=== PATIENT | female | born 1935 | race Caucasian/White ===

== ENCOUNTER 2020-06-26 20:46 | Emergency (ER) | payer MEDICARE, SELFPAY ==
[2020-06-26 21:05] VITALS: BP 155/84; PULSE 70; RESP 14; TEMP 36.4; O2SAT 99
--- NOTE | 2020-06-26 21:28 | ED.LOWEXIN ---
HPI - Extremity Injury (Lower) General Chief Complaint: Extremity Problem,Nontraumatic Stated Complaint: swelling/ bleeding from leg Time Seen by Provider: 06/26/20 21:28 Source: patient Mode of arrival: ambulatory Limitations: no limitations History of Present Illness HPI Narrative: 84-year-old woman who lives with her son brought in today by family after finding blood on her floor, in her bathtub and on her right lower leg and feet. She had a wound from which blood was coming on her right ayers. She states that she scratched a sore there on it started bleeding. She attempted to treat it by putting it in a bucket of water. Family member said that she felt lightheaded afterwards. They deny hematuria, in her stools, or other injury. She denies dizziness or weakness at present. MD complaint: leg injury Onset (ago): hour(s) (1-2) Type of Injury: unknown Place: home Severity: moderate Relieving factors: nothing Exacerbating factors: nothing Other symptoms: none Related Data Home Medications Medication Instructions Recorded Confirmed metformin 1,000 mg tablet 1,000 mg PO BID 01/07/20 06/26/20 Allergies Allergy/AdvReac Type Severity Reaction Status Date / Time No Known Allergies Allergy Verified 02/19/20 06:52 Review of Systems Constitutional: Constitutional: Denies chills and Denies fever(s) Eyes: Eyes: Denies change in vision and Denies photophobia ENT: Denies dysphagia, Denies nasal congestion and Denies sore throat Cardiovascular: Cardiovascular: Denies chest pain and Denies radiating jaw, neck or arm pain Respiratory: Respiratory: Denies cough, Denies dyspnea and Denies wheezing Gastrointestinal: Gastrointestinal: Denies abdominal pain, Denies nausea and Denies vomiting Genitourinary: Genitourinary: Denies hematuria, Denies nocturia and Denies dysuria Musculoskeletal: Musculoskeletal: Denies back pain, Denies arthralgias, Denies joint swelling and Denies muscle cramps Integumentary/Breasts: Skin/Breast: Denies pruritus, Denies rash and Denies skin ulcer Neurologic: Reports as per HPI, Denies vertigo, Reports dizziness and Denies syncope Psychiatric: Psychiatric: Denies anxiety and Denies depression Hematologic/Lymphatic: Hematologic/Lymphatic: Reports easy bleeding and Reports easy bruising Allergic/Immunologic: Allergic/Immunologic: Denies lip swelling and Denies wheezing [facility] Past Medical History Medical History Dementia Diabetes mellitus Hearing decreased HTN (hypertension) Osteoporosis Surgical History Surgical History History of cholecystectomy History of hernia repair Social History Social History Smoking status: Former smoker Tobacco type: cigarettes Additional smoking assessment comments: Quit over 30 years ago Additional living arrangements comments: . 8 Children. Exam Const: General: no acute distress and alert Resp: Effort & Inspection: normal respiratory effort and not labored Auscultation: clear to auscultation bilaterally, no rales, no rhonchi and no wheezes Cardio: Rate: regular rate Rhythm: regular rhythm Heart sounds: no murmurs GI: GI Palp: Yes Soft to palpation, No Tenderness to palpation present (GI), No Guarding due to palpation present (GI), No Rigid due to palpation and No Palpable mass present Other: no bleeding : External Female Exam: normal external appearance ( No bleeding) Skin: General skin exam: normal color, no jaundice and no pallor Rashes: no rashes Other: Small wound on the right anterior ayers without bleeding, swelling, erythema. Neuro: General: moves all extremities, no focal motor deficits and CN's II-XI intact bilaterally Speech: normal speech Gait exam (Neuro): Normal gait present Extrem: General: normal to inspection and no clubbing, cyanosis o
[2020-06-26 21:56] LABS: Basophils Absolute Auto 0.04 K/mm3 (0.00-0.10); Basophils Percent Auto 0.5 % (0.0-1.0); Eosinophils Absolute Auto 0.16 K/mm3 (0.02-0.50); Eosinophils Percent Auto 1.9 % (1.0-6.0); Hematocrit 31.4 % (35.0-42.0); Hemoglobin 9.2 g/dL (11.7-13.8); Immature Granulocyte Absolute 0.03 K/mm3 (0.00-0.00); Immature Granulocyte Percent A 0.4 % (0.0-0.0); Lymphocytes Absolute Auto 0.73 K/mm3 (1.10-4.50); Lymphocytes Percent Auto 8.6 % (18.0-42.0); Mean Corpuscular HGB Conc 29.3 g/dL (32.0-36.0); Mean Corpuscular Hemoglobin 24.9 pg (27.0-31.0); Mean Corpuscular Volume 84.9 fL (78.0-102.0); Mean Platelet Volume 9.9 fl (9.2-11.8); Monocytes Absolute Auto 0.55 K/mm3 (0.10-0.90); Monocytes Percent Auto 6.5 % (2.0-11.0); Neutrophils Absolute Auto 6.9 K/mm3 (1.7-7.2); Neutrophils Percent Auto 82.1 % (50.0-70.0); Platelet Count Result 351 K/mm3 (150-420); Red Cell Distribution Width 13.5 % (11.6-14.4); White Blood Count 8.5 K/mm3 (4.8-10.8)
[2020-06-26 21:57] VITALS: BP 148/79; PULSE 76
[2020-06-26 22:00] VITALS: BP 133/62; PULSE 73
[2020-06-26 22:10] LABS: Partial Thromboplastin Time 25.7 SEC (22.3-31.6); Prothrombin Time 10.4 Seconds (9.64-11.0)
[2020-06-26 22:11] LABS: Alanine Aminotransferase 12 U/L (14-59); Albumin Level 3.1 g/dL (3.4-5.0); Alkaline Phosphatase 64 U/L (46-116); Anion Gap 6 mmol/L (8-16); Aspartate Amino Transferase 14 U/L (15-37); Bilirubin,Total 0.3 mg/dL (0.00-1.00); Blood Urea Nitrogen 10 mg/dL (7-18); Calcium 9.1 mg/dL (8.5-10.1); Carbon Dioxide 31 mmol/L (21-32); Chloride 103 mmol/L (98-108); Estimated CRCL calculation 36 ml/min; Estimated Glomerular Filt Rate 58; Glucose 180 mg/dL (70-99); Osmolality Calculated 294 mOsm/kg (285-295); Potassium 4.2 mmol/L (3.5-5.1); Sodium 140 mmol/L (136-145); Total Protein 6.6 g/dL (6.4-8.2)
[2020-06-26 22:56] VITALS: PULSE 70; RESP 15; O2SAT 100
== END 2020-06-26 22:46 | disposition home or self-care (01) ==
PROVIDERS: Emergency Provider Emergency Medicine; PCP Family Medicine
DX: S81.811A Laceration without foreign body, right lower leg, initial encounter (principal); D64.9 Anemia, unspecified; E11.9 Type 2 diabetes mellitus without complications; I10 Essential (primary) hypertension; M81.0 Age-related osteoporosis without current pathological fracture; Z87.891 Personal history of nicotine dependence
CPT/HCPCS: 36415; 80053; 85025; 85610; 85730; 99282; 99283

== ENCOUNTER 2020-06-30 12:54 | Outpatient (CLI) | payer MEDICARE, SELFPAY ==
[2020-06-30 13:07] LABS: Hematocrit 30.3 % (35.0-42.0); Hemoglobin 8.9 g/dL (11.7-13.8); Mean Corpuscular HGB Conc 29.4 g/dL (32.0-36.0); Mean Corpuscular Volume 85.1 fL (78.0-102.0); Mean Platelet Volume 9.3 fl (9.2-11.8); Platelet Count Result 334 K/mm3 (150-420); Red Blood Count 3.56 M/mm3 (4.20-5.40); Red Cell Distribution Width 13.5 % (11.6-14.4); White Blood Count 6.3 K/mm3 (4.8-10.8)
[2020-06-30 14:05] LABS: Ferritin 9 ng/mL (8-252); Iron 19 ug/dL (50-170); Percent Iron Saturation 6 % (12-57); Vitamin B12 190 pg/mL (193-986)
[2020-06-30 14:20] LABS: Folic Acid > 20.0 ng/mL (8.6->20)
== END 2020-06-30 12:55 | disposition home or self-care (01) ==
LOC: CHSLAB 12:57
PROVIDERS: PCP Family Medicine; Visit Provider Family Medicine
DX: F03.90 Unspecified dementia, unspecified severity, without behavioral disturbance, psychotic disturbance, mood disturbance, and anxiety (principal); D46.9 Myelodysplastic syndrome, unspecified; E11.9 Type 2 diabetes mellitus without complications
CPT/HCPCS: 36415; 82607; 82728; 82746; 83540; 83550; 85027

== ENCOUNTER 2020-07-08 09:44 | Outpatient (CLI) | payer MEDICARE, SELFPAY ==
[2020-07-08] MEDS: IRON SUCROSE COMPLEX 500 MG in SODIUM CHLORIDE 0.9% IV 250 ML 62.5 MG IV PUSH (10:40)
== END 2020-07-08 09:45 | disposition home or self-care (01) ==
LOC: CHSTREATRM 09:46
PROVIDERS: PCP Family Medicine; Visit Provider Family Medicine
DX: D50.9 Iron deficiency anemia, unspecified (principal)
CPT/HCPCS: 96365; 96366; J1756; J7050

== ENCOUNTER 2020-07-23 08:24 | Outpatient (CLI) | payer MEDICARE, SELFPAY ==
[2020-07-23 08:54] LABS: Hemoglobin A1C 5.8 % (<5.7)
[2020-07-23] MEDS: IRON SUCROSE COMPLEX 500 MG in SODIUM CHLORIDE 0.9% IV 250 ML 62.5 MG IVPB (09:24)
== END 2020-07-23 08:25 | disposition home or self-care (01) ==
LOC: CHSLAB 08:31 → CHSTREATRM 09:03
PROVIDERS: PCP Family Medicine; Visit Provider Family Medicine
DX: D50.9 Iron deficiency anemia, unspecified (principal); E11.9 Type 2 diabetes mellitus without complications
CPT/HCPCS: 36415; 83036; 96365; 96366; J1756; J7050

== ENCOUNTER 2021-02-15 14:28 | Emergency (ER) | payer MEDICARE, SELFPAY ==
--- NOTE | ~2021-02-15 | XR_ITS ---
EXAMINATION: XR abdomen obstructive series DATE: 02/15/2021 15:30 INDICATION: Low abdominal pain. Nausea and vomiting. TECHNIQUE: Upright and supine views of the abdomen on 3 radiographs were obtained. COMPARISON: CT abdomen and pelvis 09/24/2007 FINDINGS: There are no dilated loops of bowel. There is a paucity of stool in the colon. No free intr aperitoneal gas. Surgical clips in the right upper quadrant are likely from cholecystectomy. IMPRESSION: 1. Normal bowel gas pattern. Reviewed, dictated and finalized at location B.
[2021-02-15 14:44] VITALS: BP 175/55; PULSE 66; RESP 14; TEMP 35.9; O2SAT 96
--- NOTE | 2021-02-15 15:10 | ED.NAVMDI ---
HPI - Nausea/Vomiting/Diarrhea General Source: patient and family Mode of arrival: ambulatory Limitations: dementia History of Present Illness HPI Narrative: Patient is brought in by daughter. She had one brief episode of nausea and had one small emesis at home. She is brought in because of this. She reportedly had been doing well prior to this. She denies other nausea and vomiting. She denies any abdominal pain. She denies any symptoms of a urinary tract infection. She has dementia, and her short term memory is not good. History must be viewed remembering this. Daughter brought her in worried she was ill, without attempting any home remedies. MD elicited complaint: nausea, vomiting (emesis x1 just prior to presentation) and diarrhea (loose stools earlier today a couple of hours ago) Onset (ago): minute(s) Description of vomiting: food contents Description of diarrhea: watery Associated nausea: Yes Associated abdominal pain: No Location of pain: none Severity: mild Exacerbating factors: other (denies exacerbating factors) Associated symptoms: denies other symptoms Related Data Allergies Allergy/AdvReac Type Severity Reaction Status Date / Time No Known Allergies Allergy Verified 02/15/21 14:49 Review of Systems Constitutional: Constitutional: Reports no additional constitutional complaints Eyes: Eyes: Reports no additional eye complaints ENT: Reports system reviewed and no additional complaints, except as documented Cardiovascular: Cardiovascular: Reports no additional cardiovascular complaints Respiratory: Respiratory: Reports no additional respiratory complaints Gastrointestinal: Gastrointestinal: Reports no additional gastrointestinal complaints Genitourinary: Genitourinary: Reports no additional female genitourinary complaints Musculoskeletal: Musculoskeletal: Reports no additional musculoskeletal complaints Integumentary/Breasts: Skin/Breast: Reports system reviewed and no additional complaints, except as docu Neurologic: Reports system reviewed and no additional complaints, except as documented Psychiatric: Psychiatric: Reports no additional psychiatric complaints Endocrine: Endocrine: Reports no additional endocrine complaints Hematologic/Lymphatic: Hematologic/Lymphatic: Reports no additional hematologic/lymphatic complaints [facility] Past Medical History Medical History Dementia Diabetes mellitus Hearing decreased HTN (hypertension) Microcytic anemia Onychomycosis Osteoporosis Surgical History Surgical History History of cholecystectomy History of hernia repair Family History Family History Father No problems noted. Mother No problems noted. Social History Social History Smoking status: Former smoker Tobacco type: cigarettes Additional smoking assessment comments: Quit over 30 years ago Additional living arrangements comments: . 8 Children. Exam Const: General: no acute distress HENMT: Head: normal to inspection Ears: external ears normal and TM's normal bilaterally Mouth: Yes Normal oral and palatal mucosa present Other: She appears to have a cyst on her posterior pharynx on the right, just smaller than a dime Eyes: Cornea: corneas normal Neck: Neck: normal visual inspection Chest: Chest palpation & inspection: normal inspection of the chest Resp: Effort & Inspection: normal respiratory effort Cardio: Rate: regular rate Rhythm: regular rhythm GI: GI Palp: Yes Soft to palpation (nontender) Back/Spine/Pelvis: Back: no CVA tenderness Skin: General skin exam: normal color Rashes: no rashes Neuro: General: patient oriented x3 and moves all extremities Extrem: General: normal to inspection Psych: Appearance: ronald
[2021-02-15 15:41] LABS: Basophils Absolute Auto 0.04 K/mm3 (0.00-0.10); Basophils Percent Auto 0.3 % (0.0-1.0); Eosinophils Absolute Auto 0.03 K/mm3 (0.02-0.50); Eosinophils Percent Auto 0.2 % (1.0-6.0); Hematocrit 46.5 % (35.0-42.0); Hemoglobin 13.9 g/dL (11.7-13.8); Immature Granulocyte Absolute 0.06 K/mm3 (0.00-0.00); Immature Granulocyte Percent A 0.5 % (0.0-0.0); Lymphocytes Absolute Auto 0.69 K/mm3 (1.10-4.50); Lymphocytes Percent Auto 5.6 % (18.0-42.0); Mean Corpuscular HGB Conc 29.9 g/dL (32.0-36.0); Mean Corpuscular Hemoglobin 26.8 pg (27.0-31.0); Mean Corpuscular Volume 89.8 fL (78.0-102.0); Mean Platelet Volume 10.1 fl (9.2-11.8); Monocytes Absolute Auto 0.46 K/mm3 (0.10-0.90); Monocytes Percent Auto 3.7 % (2.0-11.0); Neutrophils Percent Auto 89.7 % (50.0-70.0); Platelet Count Result 371 K/mm3 (150-420); Red Blood Count 5.18 M/mm3 (4.20-5.40); Red Cell Distribution Width 13.1 % (11.6-14.4); White Blood Count 12.3 K/mm3 (4.8-10.8)
[2021-02-15 15:46] LABS: Add Urine Microscopic? YES; Appearance Urine Clear (Clear); Bilirubin Urine Negative (Negative); Blood Urine Negative (Negative); Color Urine Yellow (Yellow); Glucose Urine UA Negative (Negative); Ketones Urine Trace (Negative); Leukocyte Esterase Ur Negative (Negative); Nitrate Urine Negative (Negative); Protein Urine 1+ (Negative); Specific Grav Ur 1.025 (1.010-1.020); Urobilinogen Urine 0.2 mg/dL (0.2-1.0); pH Urine 5.5 (5.0-8.0)
[2021-02-15 15:58] LABS: Alanine Aminotransferase 13 U/L (14-59); Albumin Level 3.4 g/dL (3.4-5.0); Alkaline Phosphatase 107 U/L (46-116); Anion Gap 8 mmol/L (8-16); Aspartate Amino Transferase 17 U/L (15-37); Bacteria Urine 3+ /hpf; Bilirubin,Total 0.6 mg/dL (0.00-1.00); Blood Urea Nitrogen 13 mg/dL (7-18); Calcium 10.3 mg/dL (8.5-10.1); Carbon Dioxide 31 mmol/L (21-32); Chloride 101 mmol/L (98-108); Estimated Glomerular Filt Rate > 60; Glucose 180 mg/dL (70-99); Lipase 96 U/L (73-393); Mucus Urine Few /lpf; Osmolality Calculated 295 mOsm/kg (285-295); Potassium 3.9 mmol/L (3.5-5.1); RBC Urine 0-2 /hpf (0-2); Sodium 140 mmol/L (136-145); Squamous Epithelial Cell Urine Few /hpf (Few); Total Protein 7.3 g/dL (6.4-8.2); WBC Urine 0-3 /hpf (0-3)
[2021-02-15 16:36] VITALS: BP 140/70; PULSE 80; RESP 18; TEMP 36.6; O2SAT 95
== END 2021-02-15 16:37 | disposition home or self-care (01) ==
PROVIDERS: Emergency Provider Emergency Medicine; PCP Family Medicine
DX: R11.2 Nausea with vomiting, unspecified (principal); E11.9 Type 2 diabetes mellitus without complications; I10 Essential (primary) hypertension; M81.0 Age-related osteoporosis without current pathological fracture; Z87.891 Personal history of nicotine dependence
CPT/HCPCS: 36415; 74019; 80053; 81001; 83690; 85025; 99282; 99283

== ENCOUNTER 2021-08-24 13:20 | Outpatient (CLI) | payer MEDICARE, SELFPAY ==
--- NOTE | ~2021-08-24 | XR_ITS ---
[[id number] ] INDICATION: Rib pain after fall TECHNIQUE: Frontal projection of the upper left ribs, frontal projection of the lower left ribs, obli que projection of all the left ribs, frontal inspiratory chest x-ray for interpretation. FINDINGS: There are no acute displaced rib fractures identified. There are healed left sixth and sev enth rib fractures. There are no soft tissue abnormality seen. The lungs are clear. There are scatt ered calcified granulomas of the lung parenchyma. IMPRESSION: 1:No acute displaced rib fractures. Reviewed, dictated and finalized at location A.
--- NOTE | ~2021-08-24 | XR_ITS ---
EXAMINATION: XR hip LT 2V w AP pelvis EXAM DATE: 08/24/2021 14:18 INDICATION: Fall, left hip and flank pain. TECHNIQUE: Left hip frontal, 'frog leg' projections for interpretation. Frontal projection pelvis. There is no prior study for comparison. FINDINGS: There is mild to moderate symmetric bilateral hip primary osteoarthritis. There is cortical contour abnormality identified along the superior surface of the left femoral neck on both the pelvi c x-ray and the frontal left hip projection, possible acute closed posttraumatic nondisplaced incompl ete femoral neck fracture. MRI without contrast would be most sensitive for evaluating this. This fin ding has been indicated, marked on the examination for review, clinical correlation. There is no pérez bcutaneous gas. The soft tissue is unremarkable. There are no radiopaque foreign bodies. IMPRESSION: 1. Possible nondisplaced left femoral neck fracture; consider noncontrast MR left hip. 2. Mild to moderate symmetric bilateral hip osteoarthritis. I discussed this case, recommendation with Ankur Samaniego DO at 08/24/2021 16:06 CDT. Reviewed, dictated and finalized at location B. IMPRESSION: 1. Possible nondisplaced left femoral neck fracture; consider noncontrast MR le ft hip. 2. Mild to moderate symmetric bilateral hip osteoarthritis. I discussed this case, recommendation with Ankur Samaniego DO at 08/24/2021 16:06 CDT.
== END 2021-08-24 13:21 | disposition home or self-care (01) ==
LOC: CHSIMG 13:26
PROVIDERS: PCP Family Medicine; Visit Provider Family Medicine
DX: M25.559 Pain in unspecified hip (principal)
CPT/HCPCS: 71101; 73502

== ENCOUNTER 2021-08-28 09:07 | Outpatient (CLI) | payer MEDICARE, SELFPAY ==
--- NOTE | ~2021-08-28 | MR_ITS ---
EXAMINATION: MR hip LT wo con DATE: 08/28/2021 10:57 INDICATION: Left hip pain TECHNIQUE: Magnetic resonance imaging (MRI) of the left hip was performed without intravenous contra st. Sequences included full-field axial PD-weighted FS FSE and T1-weighted FSE, coronal of the pelvis with PD-weighted FS FSE. At this point the exam was terminated at the request the patient prior to o btaining the small taqiu-le-lxnf images of the left hip. COMPARISON: None FINDINGS: Incomplete study with absence of small fjgwy-br-abzk imaging of the left hip which significantly limi ts evaluation of the labrum and cartilage. This does not however limit assessment for fracture or oth er abnormal marrow process. Bones: Alignment is normal. There is a T2 hyperintense lesion at the left posterior aspect of the L2 vertebr al body which corresponds to a hemangioma with typical thickened vertical trabecula on CT dated 09/24. Otherwise normal marrow signal. No fracture, avascular necrosis or other pathologic marrow rep lacing process. Mild osteoarthritis with no degenerative subarticular changes suggested both hips.. Fluid: Symmetric physiologic amount of fluid within both hip joints. Soft tissues: No asymmetric muscular atrophy or abnormal muscular signal in the pelvis and visualized proximal thig hs. The iliopsoas, gluteal and proximal hamstring tendons are normal. Limited evaluation of visceral organs of the pelvis is unremarkable. No pathologically enlarged pelvic/inguinal lymphadenopathy. IMPRESSION: 1. Limited study which was terminated at patient's request prior to obtaining the small jvawa-ac-avvq images of the left hip. Large gkmpr-jj-wxgd images demonstrate mild bilateral hip osteoarthritis wit h no evident acute osseous abnormality. 2. Reviewed, dictated and finalized at location A. IMPRESSION: 1. Limited study which was terminated at patient's request prior to obtaining t he small fnpnm-om-nopb images of the left hip. Large tytrm-dm-jevt images demon strate mild bilateral hip osteoarthritis with no evident acute osseous abnormal ity. 2.
== END 2021-08-28 09:08 | disposition home or self-care (01) ==
LOC: CHSIMG 09:09
PROVIDERS: PCP Family Medicine; Visit Provider Family Medicine
DX: M25.552 Pain in left hip (principal); R93.89 Abnormal findings on diagnostic imaging of other specified body structures
CPT/HCPCS: 73721

== ENCOUNTER 2022-03-06 00:07 | Observation (INO) | payer MEDICARE, SELFPAY ==
[2022-03-06] VITALS (11 sets, daily range): BP systolic 163–245; BP diastolic 69–92; PULSE 62–78; RESP 16–18; TEMP 36–36.5; O2SAT 95–100; BMI 27.3
--- NOTE | ~2022-03-06 | XR_ITS ---
EXAMINATION: XR wrist LT min 3V DATE: 03/06/2022 00:34 INDICATION: Left wrist pain after fall TECHNIQUE: Posteroanterior, ulnar deviation, oblique, and lateral views of the left wrist were obtain ed. COMPARISON: None available FINDINGS: There is an acute, traumatic, closed, transverse fracture of the distal radius. There is a subtle lucency in the distal articular surface of the radius. There are 10 degrees of dorsal angulati on at the fracture site. No additional fracture is identified. There is soft tissue swelling of the w rist. IMPRESSION: 1. Transverse fracture of the distal radius dorsal angulation and possible extension to the distal ar ticular surface. Reviewed, dictated and finalized at location A. IMPRESSION: 1. Transverse fracture of the distal radius dorsal angulation and possible exte nsion to the distal articular surface.
--- NOTE | 2022-03-06 00:19 | ED.LOWEXIN ---
HPI - Extremity Injury (Lower) General Chief Complaint: Extremity Injury, Upper Stated Complaint: Broken Left Wrist Source: patient Mode of arrival: ambulatory Limitations: no limitations History of Present Illness HPI Narrative: patient with history of high blood pressure dementia presents after she had a fall earlier today and having pain and decreased range of motion of her left wrist, has a good brisk radial pulse on the left with no numbness or tingling, no other injuries. blood pressure elevated and patient did receive vasotec 3.75 mg IV, Lopressor 5mg IV and 2mg of morphine patient is comfortable no neurological deficits labs and x-ray reviewed with family and will admit for observation to control blood pressure. complaint: other ( left wrist injury) Related Data Home Medications Medication Instructions Recorded Confirmed metformin 1,000 mg PO BID 03/06/22 03/06/22 Allergies Allergy/AdvReac Type Severity Reaction Status Date / Time No Known Allergies Allergy Verified 03/06/22 00:25 Review of Systems Review of Systems: All systems reviewed & are unremarkable except as noted in HPI and below PMFSH Past Medical History Medical History Dementia Diabetes mellitus Hearing decreased HTN (hypertension) Microcytic anemia Onychomycosis Osteoporosis Rib pain on left side Vitamin B12 deficiency Surgical History Surgical History History of cholecystectomy History of hernia repair Family History Family History Father No problems noted. Mother No problems noted. Social History Social History Smoking status: Former smoker Tobacco type: cigarettes Additional smoking assessment comments: Quit over 30 years ago Additional living arrangements comments: . 8 Children. Exam Const: General: no acute distress Orientation/consciousness: patient oriented x3 HENMT: Head: normal to inspection Eyes: Conjunctivae: conjunctivae normal Pupils: Equal, round and reactive pupils present Neck: Neck: normal visual inspection and no lymphadenopathy Chest: Chest palpation & inspection: normal inspection of the chest Resp: Effort & Inspection: normal respiratory effort Cardio: Rate: regular rate Rhythm: regular rhythm : General: Yes no CVA tenderness Urinary Catheter: Urinary Catheter: patent and draining Back/Spine/Pelvis: Back: no CVA tenderness Skin: General skin exam: normal color Rashes: no rashes Neuro: General: patient oriented x3, moves all extremities, no meningeal signs and no focal motor deficits Extrem: General: edema Other: Left wrist swollen and tender with palpation and movement. Psych: Mental Status: mental status grossly normal Affect: normal affect Course Course Emergency Course: Patient currently having increased blood pressure and will give a dose of IV basal tech since her heart rate is on the lower side with a heart rate of 72, patient is comfortable in declined pain medication and x-ray obtained of her left wrist was reviewed with patient and family. Vital Signs Vital signs: Vital Signs Pulse Rate 71 03/06/22 00:43 Respiratory Rate 18 03/06/22 00:43 Blood Pressure 240/85 H 03/06/22 00:43 Pulse Oximetry 100 03/06/22 00:43 Pulse Rate 74 03/06/22 01:11 Respiratory Rate 18 03/06/22 00:43 Blood Pressure 240/85 H 03/06/22 00:43 Pulse Oximetry 100 03/06/22 00:43 MDM - Extremity Injury (Lower) Lab Data Result diagrams: 03/06/22 01:00 03/06/22 01:00 Labs: Lab Results 03/06/22 03/06/22 Range/Units 01:00 01:00 WBC 10.4 (4.8-10.8) K/mm3 RBC 4.76 (4.20-5.40) M/mm3 Hgb 13.2 (11.7-13.8) g/dL Hct 41.6 (35.0-42.0) % MCV 87
--- NOTE | 2022-03-06 00:24 | ECG_ITS ---
Measurements Intervals [place] Rate: 71 P: 12 MT: 152 QRS: -51 QRSD: 127 T: 36 QT: 423 QTc: 460 Interpretive Statements SINUS RHYTHM RIGHT BUNDLE BRANCH BLOCK LEFT ANTERIOR FASCICULAR BLOCK BASELINE ARTIFACT- I, II, III, AVR, AVL, AVF, V3-V6 ABNORMAL ECG Electronically Signed On 03-06-2022 8:59:03 CDT by Chris Buenrostro D.O.
[2022-03-06] MEDS: ENALAPRILAT 2.5 MG/2 ML VIAL 1.25 MG IV PUSH ×2 (00:46→06:13)
[2022-03-06 01:11] LABS: Basophils Absolute Auto 0.03 K/mm3 (0.00-0.10); Basophils Percent Auto 0.3 % (0.0-1.0); Eosinophils Absolute Auto 0.06 K/mm3 (0.02-0.50); Eosinophils Percent Auto 0.6 % (1.0-6.0); Hematocrit 41.6 % (35.0-42.0); Hemoglobin 13.2 g/dL (11.7-13.8); Immature Granulocyte Absolute 0.04 K/mm3 (0.00-0.00); Immature Granulocyte Percent A 0.4 % (0.0-0.0); Lymphocytes Absolute Auto 0.77 K/mm3 (1.10-4.50); Lymphocytes Percent Auto 7.4 % (18.0-42.0); Mean Corpuscular HGB Conc 31.7 g/dL (32.0-36.0); Mean Corpuscular Hemoglobin 27.7 pg (27.0-31.0); Mean Corpuscular Volume 87.4 fL (78.0-102.0); Mean Platelet Volume 10.3 fl (9.2-11.8); Monocytes Absolute Auto 0.62 K/mm3 (0.10-0.90); Neutrophils Absolute Auto 8.9 K/mm3 (1.7-7.2); Neutrophils Percent Auto 85.3 % (50.0-70.0); Platelet Count Result 294 K/mm3 (150-420); Red Blood Count 4.76 M/mm3 (4.20-5.40); Red Cell Distribution Width 13.2 % (11.6-14.4); White Blood Count 10.4 K/mm3 (4.8-10.8)
[2022-03-06] MEDS: METOPROLOL TARTRATE INJ 5 MG/5 ML VIAL IV PUSH (01:11)
[2022-03-06 01:26] LABS: Alanine Aminotransferase 23 U/L (14-59); Albumin Level 3.5 g/dL (3.4-5.0); Alkaline Phosphatase 85 U/L (46-116); Anion Gap 5 mmol/L (8-16); Aspartate Amino Transferase 16 U/L (15-37); Bilirubin,Total 0.6 mg/dL (0.00-1.00); Blood Urea Nitrogen 11 mg/dL (7-18); Calcium 9.7 mg/dL (8.5-10.1); Carbon Dioxide 30 mmol/L (21-32); Chloride 103 mmol/L (98-108); Creatine Kinase 137 U/L (26-192); Estimated Glomerular Filt Rate > 60; Glucose 189 mg/dL (70-99); Osmolality Calculated 290 mOsm/kg (285-295); Sodium 138 mmol/L (136-145)
[2022-03-06] MEDS: ENALAPRILAT 2.5 MG/2 ML VIAL IV PUSH (02:02)
[2022-03-06] MEDS: MORPHINE SULFATE (*CRX) 2 MG/ML INJ IV PUSH ×2 (02:27→08:43)
--- NOTE | 2022-03-06 04:04 | ADMGEN ---
This patient, Myrna Pena, was admitted to 2nd Floor Room 208-2 at 0340. Patient/family oriented to hospital policies and general routines including ID bracelet, bed and alarms, visiting hours, pain management, procedures, bathroom and other care routines, personal items, smoking policy, room service/diet, and visiting hours. Information on how to activate the Rapid Response Team has been discussed. Patient/Family are encouraged to report perceived risks to care and to ask questions if they do not understand what they are told or what they should do. Patient is alert to self and place at times, admitted due to elevated blood pressure, had a fall at home with resulting fracture to left wrist (OCL splint in place). Patient is cooperative with cares, requires frequent reminders due to mental status.
[2022-03-06] MEDS: SODIUM CHLORIDE 0.9% IV 1,000 ML 100 ML IV CONT (04:28)
--- NOTE | 2022-03-06 05:46 | PC.NURSE ---
Contacted Lauren Wilkes NP regarding pt's agitated behavior and clarification regarding medications. Orders recieved and noted.
--- NOTE | 2022-03-06 05:53 | PC.NURSE ---
Patient confused, has removed telemetry leads multiple times (replaced by telegraphic typewriter mechanic), removed OCL splint (replaced by Slime RN), has removed 20 gauge IV to RAC (reinserted to left forearm by Slime RN). Patient continually attempts to remove medical equipment when not being monitored, telegraphic typewriter mechanic at bedside to ensure needed medical equipment is not removed.
[2022-03-06] MEDS: LORazepam INJ (*CRX) 2 MG/ML VIAL 0.5 MG IV PUSH (06:18)
[2022-03-06] MEDS: hydrALAZINE HCL 20 MG/ML VIAL 5 MG IV PUSH (06:23)
[2022-03-06 08:07] LABS: Glucose Point of Care 218 mg/dl (65-105)
[2022-03-06] MEDS: DONEPEZIL HCL 5 MG TABLET 10 MG PO (08:43)
[2022-03-06] MEDS: metFORMIN HCL 500 MG TABLET 1000 MG PO (08:43)
[2022-03-06] MEDS: hydroCHLOROthiazide 25 MG TABLET PO (08:43)
--- NOTE | 2022-03-06 09:05 | PM.SD2 ---
Same Day Admit/Disch: HPI History of Present Illness Chief complaint: Broken Left Wrist Narrative: Myrna Pena is a 86 year old female that presented to our emergency department status post fall. Patient has a past medical history of diabetes mellitus, dementia, hearing decreased, hypertension, microcytic anemia, osteoporosis, vitamin B12 deficiency, and rib pain to the left side. Patient is a poor historian all information obtained from medical records. According to medical records patient sustained a fall yesterday afterwards she started to experience pain and decreased range of motion to her left wrist with elevated blood pressure. Imaging indicated that patient had a transverse fracture of the distal radial dorsal angulation and possible extension to the dorsal articular surface. Patient left wrist was splinted in the ED. She was admitted due to elevated blood pressure. Patient will discharge home today with pain medication adjustment in blood pressure medication in instructed to follow-up with orthopedic surgery. Family was educated on fall risks with the use of narcotics instructed to monitor patient closely. Her blood pressure medication was adjusted. Instructed family members to take blood pressure reading daily in document and give to her primary care physician. I informed him that her blood pressure may possibly be elevated due to pain. Vital signs on discharge 97.2, 71, 18, 97, 195/92, WBCs 10.4 hemoglobin 13.2 hematocrit 41.6 platelets 294, sodium 138, potassium 4.0, BUN 11, creatinine 0.71, glucose 189, calcium 9.7 liver function test within normal limits. Patient will discharge home today with instructions to follow-up with Ortho on Monday and pain medication and family instructed to monitor patient closely to prevent falls PMFSH Past Medical History Medical History Dementia Diabetes mellitus Hearing decreased HTN (hypertension) Microcytic anemia Onychomycosis Osteoporosis Rib pain on left side Vitamin B12 deficiency Surgical History Surgical History History of cholecystectomy History of hernia repair Family History Family History Father No problems noted. Mother No problems noted. Social History Social History Smoking status: Former smoker Tobacco type: cigarettes Additional smoking assessment comments: Quit over 30 years ago Alcohol intake: former Substance use: never Additional living arrangements comments: . 8 Children. Spiritual care concerns: No Same Day Admit/Disch: Med Pre-admit Medications Home Medications Medication Instructions Recorded Confirmed Type donepezil 10 mg tablet See Rx Instructions .ROUTE 11/08/21 03/06/22 Rx .COMPLEX #90 tablet amlodipine [Norvasc] 5 mg PO DAILY #90 tablet 03/06/22 Rx docusate sodium 100 mg PO BID #60 tablet 03/06/22 Rx hydrocodone-acetaminophen 1 tablet PO Q6H PRN #30 tablet 03/06/22 Rx ibuprofen 800 mg PO Q6H PRN #30 tablet 03/06/22 Rx lisinopril 20 mg PO DAILY #90 tablet 03/06/22 Rx metformin 1,000 mg PO BID 03/06/22 03/06/22 History Exam Narrative: GENERAL: This is a well-nourished, well-developed patient, in no apparent distress. Alert to self only with confusion HEAD: normocephalic, atraumatic. EYES: PERRL. Sclera clear/white. Vision is grossly intact. EARS: External ears normal, auditory canals clear and without drainage, TMs normal without perforation. Hearing grossly intact. NOSE: External nose normal with no obvious nasal discharge, nares without redness, no rhinorrhea. THROAT: Mucous membranes moist, posterior pharynx clear. NECK: Neck supple, non-tender without lymphadenopathy, masses or thyromegaly. CARDIOVASCULAR: Regular rate and rhythm without murmurs, ga
--- NOTE | 2022-03-06 10:05 | PC.NURSE ---
Patient discharging home. Son here to transport patient home. IV site removed, tip intact, dressing applied to site. Telemetry removed. This nurse assisted patient to dress in clothing from home. Splint remains intact to left wrist. Fingers pink with good blood return. No swelling noted. Discharge instructions reviewed with son and patient due to patients mental state of dementia. Son states understanding of discharge instructions and education. All belongings gathered together and sent home with patient. Patient accompanied to front door via wheelchair by this nurse. Left via private vehicle with son. No further questions at time of discharge.
--- NOTE | 2022-03-07 09:44 | PC.NURSE ---
Pt states she received and understood her discharge instructions. Pt has no other comments,
== END 2022-03-06 10:05 | disposition home or self-care (01) ==
LOC: CHSED 02:50 → CHS2ND 09:04
PROVIDERS: Admitting Provider Internal Medicine; Emergency Provider Emergency Medicine; PCP Family Medicine; Visit Provider Internal Medicine
DX: I10 Essential (primary) hypertension (principal); S52.502A Unspecified fracture of the lower end of left radius, initial encounter for closed fracture; E11.9 Type 2 diabetes mellitus without complications; E53.8 Deficiency of other specified B group vitamins; D50.9 Iron deficiency anemia, unspecified; M81.0 Age-related osteoporosis without current pathological fracture; F03.90 Unspecified dementia, unspecified severity, without behavioral disturbance, psychotic disturbance, mood disturbance, and anxiety; W19.XXXA Unspecified fall, initial encounter
CPT/HCPCS: 29125; 36415; 73110; 80053; 82550; 82948; 85025; 93005; 96361; 96374; 96375; 96376; 99285; A9270; G0378; J0360; J1815; J2060; J2270; J7030

== ENCOUNTER 2022-10-08 11:11 | Emergency (ER) | payer MEDICARE, SELFPAY ==
[2022-10-08 11:18] VITALS: BP 154/74; PULSE 66; RESP 18; TEMP 36.8; O2SAT 97
--- NOTE | 2022-10-08 11:23 | ED.WOUNDLAC ---
HPI - Wound/Laceration General Chief Complaint: Wound/Laceration Stated Complaint: R knee lac after fall Time Seen by Provider: 10/08/22 11:14 Source: patient and family Mode of arrival: ambulatory History of Present Illness HPI narrative: this is a 87-year-old female that presents with her daughter that had a fall when she tripped and cause a abrasion/skin tear to the anterior surface of her right knee has good range of motion with no swelling no bruising as it no warmth or tenderness. Onset (ago): hour(s) Extremity Location: Right: knee ( Abrasion /skin tear) Place: outdoors Context: accidental Related Data Home Medications Medication Instructions Recorded Confirmed metformin 1,000 mg tablet 1,000 mg PO BID 03/06/22 04/19/22 Allergies Allergy/AdvReac Type Severity Reaction Status Date / Time No Known Allergies Allergy Verified 04/19/22 09:07 Review of Systems Review of Systems: All systems reviewed & are unremarkable except as noted in HPI and below PMFSH Past Medical History Medical History Dementia Diabetes mellitus Hearing decreased HTN (hypertension) Microcytic anemia Onychomycosis Osteoporosis Rib pain on left side Vitamin B12 deficiency Surgical History Surgical History History of cholecystectomy History of hernia repair Family History Family History Father No problems noted. Mother No problems noted. Social History Social History Smoking status: Former smoker Tobacco type: cigarettes Additional smoking assessment comments: Quit over 30 years ago Alcohol intake: former Substance use: never Additional living arrangements comments: . 8 Children. Spiritual care concerns: No Exam Const: General: healthy appearing and no acute distress Nutritional Appearance: well nourished Orientation/consciousness: patient oriented x3 Limitations: no limitations HENMT: Head: normal to inspection Face/Nose/Sinus: Normal external nose present Face and sinus: normal facial exam Mouth: Yes Normal oral and palatal mucosa present Eyes: Conjunctivae: conjunctivae normal Pupils: Equal, round and reactive pupils present EOM: EOMs intact bilaterally Neck: Neck: normal visual inspection Chest: Chest palpation & inspection: normal inspection of the chest Resp: Effort & Inspection: normal respiratory effort Auscultation: clear to auscultation bilaterally Cardio: Rate: regular rate Rhythm: regular rhythm Heart sounds: Murmur heart sound present GI: GI Palp: Yes Soft to palpation Back/Spine/Pelvis: Back: no CVA tenderness Skin: General skin exam: normal color Rashes: no rashes Wounds: wounds noted Neuro: General: patient oriented x3 Extrem: General: normal to inspection and no clubbing, cyanosis or edema Psych: Mental Status: mental status grossly normal Affect: normal affect Course Course Emergency Course: Patient is up-to-date with her tetanus has good range of motion no swelling in the area was cleaned and Steri-Strips were applied. Critical Care Time Critical Care Time Critical Care Time: No Discharge Plan Discharge Clinical Impression: Abrasion, Skin tear Patient Disposition: Home, Self-Care Condition: Stable Instructions: Antibiotic Form, Abrasion (ED), Steristrips (ED) Prescriptions: No Action metformin 1,000 mg tablet 1,000 mg PO BID lisinopril 20 mg tablet 20 mg PO DAILY Qty: 90 0RF amlodipine [Norvasc] 5 mg tablet 5 mg PO DAILY Qty: 90 0RF ibuprofen 800 mg tablet 800 mg PO Q6H PRN (Reason: pain) Qty: 30 0RF docusate sodium 100 mg tablet 100 mg PO BID Qty: 60 0RF donepezil 10 mg tablet See Rx Instructions .ROUTE .COMPLEX Qty: 90 0RF Dos
[2022-10-08 11:45] VITALS: BP 168/88; PULSE 60; RESP 20; TEMP 36.6; O2SAT 98
== END 2022-10-08 11:45 | disposition home or self-care (01) ==
LOC: CHSED 11:54
PROVIDERS: Emergency Provider Emergency Medicine; PCP Family Medicine
DX: S80.211A Abrasion, right knee, initial encounter (principal); W19.XXXA Unspecified fall, initial encounter; E11.9 Type 2 diabetes mellitus without complications; I10 Essential (primary) hypertension; M81.0 Age-related osteoporosis without current pathological fracture; Z87.891 Personal history of nicotine dependence
CPT/HCPCS: 99282

== ENCOUNTER 2022-12-06 10:36 | Emergency (ER) | payer MEDICARE, SELFPAY ==
[2022-12-06] VITALS (22 sets, daily range): BP systolic 127–244; BP diastolic 57–144; PULSE 57–95; RESP 18; TEMP 36.3; O2SAT 96–98
--- NOTE | 2022-12-06 10:43 | ED.DIZZY ---
HPI - Dizziness General Chief Complaint: Dizziness Stated Complaint: Dizziness Time Seen by Provider: 12/06/22 10:37 Source: patient, family and RN notes reviewed Mode of arrival: ambulatory Limitations: no limitations History of Present Illness HPI Narrative: patient was at breakfast this morning with family. She suddenly said that I feel like I am drunk . She states that she felt off balance. She recently started on all of her medications 2 days ago after being off of them for several months. She has a history of dementia and just stop taking her medicines altogether refusing to take him. Now she is taking them again including diabetic medications and antihypertensives. MD elicited complaint: disequilibrium Onset (ago): hour(s) (1) Timing: gradual onset and intermittent Severity: moderate Description: off-balance Context: change in medication Exacerbating factors: movement/ambulation Relieving factors: rest Associated symptoms: denies other symptoms Related Data Allergies Allergy/AdvReac Type Severity Reaction Status Date / Time No Known Allergies Allergy Verified 12/06/22 10:43 Review of Systems Review of Systems: All systems reviewed & are unremarkable except as noted in HPI and below PMFSH Past Medical History Medical History Dementia Diabetes mellitus Hearing decreased HTN (hypertension) Microcytic anemia Onychomycosis Osteoporosis Rib pain on left side Vitamin B12 deficiency Surgical History Surgical History History of cholecystectomy History of hernia repair Family History Family History Father No problems noted. Mother No problems noted. Social History Social History Smoking status: Former smoker Tobacco type: cigarettes Additional smoking assessment comments: Quit over 30 years ago Alcohol intake: former Substance use: never Additional living arrangements comments: . 8 Children. Occupation/Education: retired Spiritual care concerns: No Exam Const: General: healthy appearing, no acute distress and confusion Nutritional Appearance: well nourished Orientation/consciousness: patient oriented x3 Limitations: no limitations HENMT: Head: normal to inspection Ears: hearing grossly normal bilaterally and external ears normal Eyes: Conjunctivae: conjunctivae normal Pupils: Equal, round and reactive pupils present EOM: EOMs intact bilaterally Neck: Neck: normal visual inspection Resp: Effort & Inspection: normal respiratory effort Auscultation: clear to auscultation bilaterally Cardio: Rate: regular rate Rhythm: regular rhythm GI: GI Palp: Yes Soft to palpation and No Tenderness to palpation present (GI) Auscultation: normal bowel sounds Back/Spine/Pelvis: Cervical Spine: cervical ROM normal Thoracic/Lumbar Spine: thoraco-lumbar ROM normal Skin: General skin exam: normal color Rashes: no rashes Neuro: General: moves all extremities, no focal motor deficits and CN's II-XI intact bilaterally Speech: normal speech Gait exam (Neuro): Normal gait present Extrem: General: normal to inspection and no clubbing, cyanosis or edema Psych: Mental Status: mental status grossly normal Affect: normal affect Attitude: cooperative Course Vital Signs Vital signs: Vital Signs Pulse Rate 58 L 12/06/22 10:36 Blood Pressure 199/70 H 12/06/22 10:36 Temperature 36.3 C L 12/06/22 10:38 Pulse Rate 63 12/06/22 12:46 Respiratory Rate 18 12/06/22 10:38 Blood Pressure 172/66 H 12/06/22 12:46 Pulse Oximetry 97 12/06/22 12:46 Oxygen Delivery Room Air 12/06/22 10:38 MDM - Dizziness MDM Narrative Medical decision making narrative: Differential diagnosis: I also considered electrolyte abnormality, a
--- NOTE | 2022-12-06 11:44 | ECG_ITS ---
Measurements Intervals [place] Rate: 62 P: 13 MS: 153 QRS: -56 QRSD: 123 T: 47 QT: 439 QTc: 446 Interpretive Statements SINUS RHYTHM RIGHT BUNDLE BRANCH BLOCK LEFT ANTERIOR FASCICULAR BLOCK MODERATE VOLTAGE CRITERIA FOR LVH, CONSIDER NORMAL VARIANT ABNORMAL ECG COMPARED TO ECG 03/06/2022 00:39:50 NO SIGNIFICANT CHANGES Electronically Signed On 12-07-2022 14:35:45 HUMAN RESOURCE STATISTICIAN by Major Dunn M.D.
[2022-12-06 12:00] LABS: Appearance Urine Clear (Clear); Bilirubin Urine Negative (Negative); Color Urine Light Yellow (Yellow); Glucose Urine UA Negative (Negative); Ketones Urine Negative (Negative); Leukocyte Esterase Ur Negative LEU/UL (Negative); Nitrate Urine Negative (Negative); Protein Urine Negative (Negative); Urobilinogen Urine 0.2 mg/dL (0.2-1.0)
--- NOTE | 2022-12-06 12:01 | PC.NURSE ---
PT IS SITTING ON STRETCHER WITH FAMILY AT BEDSIDE. PT IS CONFUSED, NORMAL PER FAMILY. NAD NOTED. PT IS AWAITING RESULTS AT THIS TIME. URINE SPECIMEN WAS OBTAINED AND SENT TO LAB. PT IS REQUESTING TO GO HOME. WILL CONTINUE TO MONITOR.
[2022-12-06 12:04] LABS: Add Urine Microscopic? YES; Bacteria Urine 2+ /hpf; Blood Urine Trace-lysed (Negative); RBC Urine 0-2 /hpf (0-2); Squamous Epithelial Cell Urine Few /hpf (Few); WBC Urine None seen /hpf (0-3)
[2022-12-06 12:07] LABS: Basophils Absolute Auto 0.02 K/mm3 (0.00-0.10); Basophils Percent Auto 0.4 % (0.0-1.0); Eosinophils Absolute Auto 0.07 K/mm3 (0.02-0.50); Eosinophils Percent Auto 1.4 % (1.0-6.0); Hematocrit 43.7 % (35.0-42.0); Immature Granulocyte Absolute 0.02 K/mm3 (0.00-0.00); Immature Granulocyte Percent A 0.4 % (0.0-0.0); Lymphocytes Absolute Auto 0.93 K/mm3 (1.10-4.50); Lymphocytes Percent Auto 18.7 % (18.0-42.0); Mean Corpuscular Hemoglobin 27.9 pg (27.0-31.0); Mean Corpuscular Volume 87.1 fL (78.0-102.0); Mean Platelet Volume 10.7 fl (9.2-11.8); Monocytes Absolute Auto 0.39 K/mm3 (0.10-0.90); Monocytes Percent Auto 7.8 % (2.0-11.0); Neutrophils Absolute Auto 3.6 K/mm3 (1.7-7.2); Neutrophils Percent Auto 71.3 % (50.0-70.0); Platelet Count Result 273 K/mm3 (150-420); Red Blood Count 5.02 M/mm3 (4.20-5.40); Red Cell Distribution Width 13.2 % (11.6-14.4)
[2022-12-06 12:25] LABS: Alanine Aminotransferase 10 U/L (14-59); Albumin Level 3.5 g/dL (3.4-5.0); Alkaline Phosphatase 65 U/L (46-116); Anion Gap 4 mmol/L (8-16); Aspartate Amino Transferase 10 U/L (15-37); Bilirubin,Total 0.5 mg/dL (0.00-1.00); Blood Urea Nitrogen 13 mg/dL (7-18); Calcium 9.8 mg/dL (8.5-10.1); Carbon Dioxide 32 mmol/L (21-32); Chloride 106 mmol/L (98-108); Estimated Glomerular Filt Rate > 60; Glucose 130 mg/dL (70-99); Osmolality Calculated 296 mOsm/kg (285-295); Potassium 3.9 mmol/L (3.5-5.1); Sodium 142 mmol/L (136-145)
[2022-12-06 12:31] LABS: Magnesium 1.6 mg/dL (1.8-2.4)
[2022-12-06 12:32] LABS: CRP < 0.5 mg/dL (0.0-0.9)
--- NOTE | 2022-12-06 12:56 | PC.NURSE ---
ERP AT BEDSIDE SPEAKING WITH FAMILY AT THIS TIME. WILL CONTINUE TO MONITOR. NAD NOTED. VSS, ERP IS AWARE OF BP.
--- NOTE | 2022-12-06 13:13 | PC.NURSE ---
PT IS AMBULATORY WITH NEPHEW, PT IS STEADY ON HER FEET, AFTER SHE STABILIZES HERSELF. PT IS AMBULATORY OUT OF ED WITHOUT DISTRESS, DAUGHTER TO TRANSPORT.
== END 2022-12-06 13:05 | disposition home or self-care (01) ==
PROVIDERS: Emergency Provider Emergency Medicine; PCP Family Medicine
DX: E83.42 Hypomagnesemia (principal); T50.905A Adverse effect of unspecified drugs, medicaments and biological substances, initial encounter; E11.9 Type 2 diabetes mellitus without complications; I10 Essential (primary) hypertension; F03.90 Unspecified dementia, unspecified severity, without behavioral disturbance, psychotic disturbance, mood disturbance, and anxiety; Z87.891 Personal history of nicotine dependence
CPT/HCPCS: 36415; 80053; 81001; 83735; 85025; 86140; 93005; 99283

== ENCOUNTER 2023-01-11 15:17 | Inpatient (IN) | payer MEDICARE, SELFPAY ==
[2023-01-11] VITALS (33 sets, daily range): BP systolic 107–148; BP diastolic 39–105; PULSE 66–107; RESP 14–29; TEMP 36.2–36.4; O2SAT 75–100; BMI 19.0
--- NOTE | ~2023-01-11 | XR_ITS ---
EXAMINATION: XR chest 1V portable DATE: 01/11/2023 16:56 INDICATION: Cough. Shortness of breath. TECHNIQUE: A single frontal view of the chest was obtained. COMPARISON: Chest one view 07/11/2018 FINDINGS: There are lucencies in the lungs, consistent with emphysema. Calcified pulmonary nodules an d calcified hilar and mediastinal lymph nodes are consistent with old adenomatous disease. There is m ild atelectasis in the lower lung zones. No pleural effusion or pneumothorax. The heart size is isis l. IMPRESSION: 1. Emphysema. 2. Mild atelectasis in the lower lung zones. Reviewed, dictated and finalized at location A.
--- NOTE | ~2023-01-11 | CT_ITS ---
EXAMINATION: CTA chest PE protocol DATE: 01/11/2023 18:00 INDICATION: LETHARGIC; COUGH W/SOB X 2 DAYS; HYPOXIA TODAY. TECHNIQUE: Computed tomography angiography (CTA) of the chest was performed with 100 mL Omnipaque-350 intravenous contrast timed to evaluate the pulmonary arteries. Coronal maximum intensity projection 3D-reconstructions were created by the technologist. The dose-length product (DLP) was 240.08 mGy-cm. Automated exposure control and iterative reconstruction technique were employed. COMPARISON: X-ray chest, same date. FINDINGS: Lung parenchyma and airways: Severe emphysematous change. Scattered tree-in-bud opacities, most notab ly in the anterior right middle lobe. Multiple calcified pulmonary granulomas. Minimal airway debris in bilateral lower lobe bronchi. Pleura: Unremarkable. Thoracic inlet, axillae and chest wall: Unremarkable. Thoracic aorta: Moderate arch calcification. Mediastinum: Calcified and enlarged bilateral hilar and mediastinal lymph nodes. Heart and pericardium: Normal. Coronary artery calcifications: Moderate. Upper abdomen: No significant finding. Bones: No acute osseous finding. Pulmonary arteries: Study quality: Mild motion artifact and beam hardening, overall adequate. No pulm onary emboli detected. IMPRESSION: No CT evidence of acute pulmonary embolus. Scattered tree-in-bud opacities as can be seen with atypic al infection, ABPA, airways disease, and aspiration. Bilateral lower lobe airway debris. Severe emphy sematous change. Reviewed, dictated and finalized at location K. IMPRESSION: No CT evidence of acute pulmonary embolus. Scattered tree-in-bud opacities as c an be seen with atypical infection, ABPA, airways disease, and aspiration. Bila teral lower lobe airway debris. Severe emphysematous change.
--- NOTE | 2023-01-11 15:51 | ED.SOB ---
HPI - SOB/Dyspnea General Chief Complaint: Shortness of Breath/Dyspnea Stated Complaint: low SpO2 Time Seen by Provider: 01/11/23 15:51 Source: patient Mode of arrival: ambulatory History of Present Illness HPI Narrative: 87-year-old female, remote smoker with hypertension, diabetes mellitus, chronic back pain, anemia, dementia presents to the ER with a 2 day history of -- nonproductive cough -- shortness of breath. She was noted to be 75% on room air on presentation. Patient denied fever. No chest pain. Patient is very hard of hearing and is unable to answer questions. MD elicited complaint: shortness of breath and cough Onset (ago): day(s) ( Symptoms started 2 days ago.) Timing: constant Severity: severe Associated symptoms: denies other symptoms Treatment prior to arrival: none Related Data Home oxygen amount: none Allergies Allergy/AdvReac Type Severity Reaction Status Date / Time No Known Allergies Allergy Verified 01/11/23 16:12 Review of Systems Review of Systems: All systems reviewed & are unremarkable except as noted in HPI and below Constitutional: Constitutional: Reports as per HPI and Reports no additional constitutional complaints Eyes: Eyes: Reports as per HPI and Reports no additional eye complaints ENT: Reports system reviewed and no additional complaints, except as documented and Reports as per HPI Cardiovascular: Cardiovascular: Reports as per HPI and Reports no additional cardiovascular complaints Respiratory: Respiratory: Reports as per HPI, Reports no additional respiratory complaints, Reports cough and Reports dyspnea Gastrointestinal: Gastrointestinal: Reports as per HPI and Reports no additional gastrointestinal complaints Genitourinary: Genitourinary: Reports no additional female genitourinary complaints and Reports as per HPI Musculoskeletal: Musculoskeletal: Reports no additional musculoskeletal complaints and Reports as per HPI Integumentary/Breasts: Skin/Breast: Reports system reviewed and no additional complaints, except as docu and Reports as per HPI Neurologic: Reports system reviewed and no additional complaints, except as documented and Reports as per HPI Psychiatric: Psychiatric: Reports no additional psychiatric complaints and Reports as per HPI Endocrine: Endocrine: Reports no additional endocrine complaints and Reports as per HPI Hematologic/Lymphatic: Hematologic/Lymphatic: Reports no additional hematologic/lymphatic complaints and Reports as per HPI Allergic/Immunologic: Allergic/Immunologic: Reports no additional allergic/immunologic complaints and Reports as per HPI PMFSH Past Medical History Medical History Dementia Diabetes mellitus Hearing decreased HTN (hypertension) Microcytic anemia Onychomycosis Osteoporosis Rib pain on left side Vitamin B12 deficiency Surgical History Surgical History History of cholecystectomy History of hernia repair Family History Family History Father No problems noted. Mother No problems noted. Social History Social History Smoking status: Former smoker Tobacco type: cigarettes Additional smoking assessment comments: Quit over 30 years ago Alcohol intake: former Substance use: never Additional living arrangements comments: . 8 Children. Occupation/Education: retired Spiritual care concerns: No Exam Const: General: ill appearing Nutritional Appearance: thin Limitations: altered mental status HENMT: Head: normal to inspection Ears: external ears normal Face/Nose/Sinus: Normal external nose present Face and sinus: normal facial exam Mouth: Yes Normal oral and palatal mucosa present Throat: posterior oropharynx normal Eyes: Conjunctiva
--- NOTE | 2023-01-11 16:00 | ECG_ITS ---
Measurements Intervals [place] Rate: 77 P: 38 NH: 157 QRS: -42 QRSD: 124 T: 52 QT: 403 QTc: 459 Interpretive Statements SINUS RHYTHM LEFT AXIS DEVIATION RIGHT BUNDLE BRANCH BLOCK BASELINE ARTIFACT- I, II, III, AVR, AVL, AVF, V3-V6 ABNORMAL ECG COMPARED TO ECG 12/06/2022 12:14:47 LEFT-AXIS DEVIATION NOW PRESENT Electronically Signed On 01-11-2023 20:32:12 CDT by Chris Buenrostro D.O.
[2023-01-11] MEDS: ALBUTEROL SULFATE (*SP) INHALER 2 PUFF INHALATION (16:20)
--- NOTE | 2023-01-11 16:27 | PC.NURSE ---
DAUGHTER AT BEDSIDE. PT IS TOLERATING 2L O2 WITHOUT DIFFICULTY. RESP STATUS HAS IMPROVED. COUGH REMAINS. WILL CONTINUE TO MONITOR.
[2023-01-11 16:33] LABS: Basophils Absolute Auto 0.02 K/mm3 (0.00-0.10); Basophils Percent Auto 0.2 % (0.0-1.0); Hemoglobin 13.5 g/dL (11.7-13.8); Immature Granulocyte Absolute 0.05 K/mm3 (0.00-0.00); Immature Granulocyte Percent A 0.4 % (0.0-0.0); Lymphocytes Absolute Auto 0.92 K/mm3 (1.10-4.50); Lymphocytes Percent Auto 7.5 % (18.0-42.0); Mean Corpuscular HGB Conc 32.1 g/dL (32.0-36.0); Mean Platelet Volume 10.8 fl (9.2-11.8); Monocytes Absolute Auto 1.38 K/mm3 (0.10-0.90); Monocytes Percent Auto 11.2 % (2.0-11.0); Neutrophils Absolute Auto 9.9 K/mm3 (1.7-7.2); Neutrophils Percent Auto 80.7 % (50.0-70.0); Platelet Count Result 356 K/mm3 (150-420); Red Blood Count 4.83 M/mm3 (4.20-5.40); Red Cell Distribution Width 13.2 % (11.6-14.4); White Blood Count 12.3 K/mm3 (4.8-10.8)
[2023-01-11] MEDS: ACETAMINOPHEN/CODEINE ELIXIR (*CRX) 120-12 MG/5 ML UDC PO (16:33)
[2023-01-11 16:48] LABS: Partial Thromboplastin Time 31.8 SEC (23.90-30.70); Prothrombin Time 10.9 Seconds (9.50-12.10)
[2023-01-11 16:55] LABS: Alanine Aminotransferase 13 U/L (14-59); Albumin Level 3.2 g/dL (3.4-5.0); Alkaline Phosphatase 73 U/L (46-116); Anion Gap 9 mmol/L (8-16); Aspartate Amino Transferase 15 U/L (15-37); Bilirubin,Total 0.5 mg/dL (0.00-1.00); Blood Urea Nitrogen 45 mg/dL (7-18); Carbon Dioxide 30 mmol/L (21-32); Chloride 102 mmol/L (98-108); Estimated CRCL calculation 24 ml/min; Estimated Glomerular Filt Rate 50; Glucose 143 mg/dL (70-99); NT Pro B Type Natriuretic Pept 284 pg/mL (0-450); Osmolality Calculated 305 mOsm/kg (285-295); Potassium 4.3 mmol/L (3.5-5.1); Sodium 141 mmol/L (136-145); Total Protein 7.8 g/dL (6.4-8.2); Troponin I 34.3 ng/L (0.00-60.4)
[2023-01-11 16:57] LABS: Lactic Acid Reflex 1.4 mmol/L (0.4-2.0)
[2023-01-11 17:11] LABS: D Dimer 0.79 mg/L (0.19-0.50)
[2023-01-11 17:15] LABS: Influenza A QL RT-PCR Negative (Negative); Influenza B QL RT-PCR Negative (Negative); SARS-CoV-2 RNA PCR Negative (Negative)
[2023-01-11 17:16] LABS: RSV RNA, RT-PCR Negative (Negative)
[2023-01-11 17:19] LABS: Base Excess ABG -1.9 mmol/L (0-2); HCO3 ABG 26.2 mmol/L (23-29); Oxygen Content ABG 20.2 %vol (16.0-22.0); Oxygen Saturation ABG 91.1 % (95-97); Oxyhemoglobin 89.8 % (94-100); PCO2 ABG 57.9 mmHg (35-45); PO2 ABG 64.5 mmHg (75-85); pH ABG 7.27 (7.35-7.45)
[2023-01-11 17:20] LABS: Device NASAL CANNULA; Modified Allen's Test Pass; Site Drawn RIGHT RADIAL
[2023-01-11] MEDS: methylPREDNISolone SOD SUCC 125 MG VIAL IV PUSH (18:05)
[2023-01-11] MEDS: SODIUM CHLORIDE 0.9% IV 1,000 ML 999 ML IV CONT (18:06)
--- NOTE | 2023-01-11 18:11 | PC.NURSE ---
pt is sitting up on stretcher talking with daughter. pt is confused. pt resp status has greatly improved. no resp distress noted. pt is on 2l o2 at present. daughter reports family wishes pt to be DNR status, has DNR at home. ERP aware. will continue to monitor.
[2023-01-11] MEDS: IPRATROPIUM 0.5 MG/ALBUTEROL SULFATE 2.5 MG AMPUL.NEB 3 ML INHALATION ×2 (18:20→23:39)
[2023-01-11] MEDS: AZITHROMYCIN IV 500 MG in SODIUM CHLORIDE 0.9% IV 250 ML 250 MG IVPB (19:14)
--- NOTE | 2023-01-11 21:59 | ADMGEN ---
This patient, Myrna Pena, was admitted to 2nd Floor Room 206-1. Patient/family oriented to hospital policies and general routines including ID bracelet, bed and alarms, visiting hours, pain management, procedures, bathroom and other care routines, personal items, smoking policy, room service/diet, and visiting hours. Patient/Family are encouraged to report perceived risks to care and to ask questions if they do not understand what they are told or what they should do.
[2023-01-11] MEDS: traZODone HCL 50 MG TABLET PO (23:11)
[2023-01-12] VITALS (14 sets, daily range): BP systolic 110–128; BP diastolic 38–55; PULSE 60–80; RESP 16–22; TEMP 36.2–36.3; O2SAT 83–94
[2023-01-12] MEDS: methylPREDNISolone SOD SUCC 40 MG VIAL IV PUSH (05:11)
[2023-01-12 05:18] LABS: Hematocrit 38.1 % (35.0-42.0); Immature Granulocyte Absolute 0.03 K/mm3 (0.00-0.00); Immature Granulocyte Percent A 0.3 % (0.0-0.0); Lymphocytes Absolute Auto 0.29 K/mm3 (1.10-4.50); Lymphocytes Percent Auto 3.2 % (18.0-42.0); Mean Corpuscular HGB Conc 31.5 g/dL (32.0-36.0); Mean Corpuscular Hemoglobin 27.8 pg (27.0-31.0); Mean Corpuscular Volume 88.2 fL (78.0-102.0); Mean Platelet Volume 11.3 fl (9.2-11.8); Monocytes Absolute Auto 0.13 K/mm3 (0.10-0.90); Monocytes Percent Auto 1.5 % (2.0-11.0); Neutrophils Absolute Auto 8.5 K/mm3 (1.7-7.2); Platelet Count Result 300 K/mm3 (150-420); Red Blood Count 4.32 M/mm3 (4.20-5.40); White Blood Count 8.9 K/mm3 (4.8-10.8)
[2023-01-12 05:26] LABS: Anion Gap 11 mmol/L (8-16); Blood Urea Nitrogen 48 mg/dL (7-18); Calcium 9.1 mg/dL (8.5-10.1); Carbon Dioxide 26 mmol/L (21-32); Chloride 97 mmol/L (98-108); Estimated Glomerular Filt Rate 31; Osmolality Calculated 308 mOsm/kg (285-295); Potassium 3.8 mmol/L (3.5-5.1); Sodium 134 mmol/L (136-145)
[2023-01-12 05:28] LABS: Glucose 415 mg/dL (70-99)
--- NOTE | 2023-01-12 05:47 | PC.NURSE ---
Rasta Jasso NP notified of critical glucose value; New orders received and noted.
[2023-01-12] MEDS: INSULIN HUMAN LISPRO (*BKC) 1,000 UNITS/10 ML VIAL 10 UNITS SUB-Q (06:08)
[2023-01-12] MEDS: IPRATROPIUM 0.5 MG/ALBUTEROL SULFATE 2.5 MG AMPUL.NEB 3 ML INHALATION ×4 (06:17→20:39)
--- NOTE | 2023-01-12 06:41 | PC.NURSE ---
Pt's bg level checked after administering 10 units of Humalog. Results 369.
[2023-01-12 06:46] LABS: Glucose Point of Care 369 mg/dl (65-105)
[2023-01-12 07:51] LABS: Glucose Point of Care 276 mg/dl (65-105)
[2023-01-12] MEDS: lisinopriL 20 MG TABLET PO (08:55)
[2023-01-12] MEDS: amLODIPine BESYLATE 5 MG TABLET 10 MG PO (08:55)
[2023-01-12] MEDS: INSULIN HUMAN LISPRO (*BKC) 1,000 UNITS/10 ML VIAL SUB-Q ×2 (08:56→12:14)
[2023-01-12] MEDS: DONEPEZIL HCL 5 MG TABLET 10 MG PO (08:56)
[2023-01-12] MEDS: MAGNESIUM OXIDE 400 MG TABLET PO (08:56)
[2023-01-12] MEDS: ENOXAPARIN 30 MG/0.3 ML SYRINGE SUB-Q (08:56)
[2023-01-12] MEDS: SPIRONOLACTONE 25 MG TABLET PO (08:56)
--- NOTE | 2023-01-12 10:29 | HOMEO2EVAL ---
Evaluation was performed at [facility] Home Oxygen Evaluation RC: Home Oxygen (O2) Evaluation Start: 01/12/23 07:57 Freq: ONCE Status: Active Protocol: RPE Activity Type Activity Date Activity User E-sign Co-sign Detail Recorded Client Recorded Date Recorded By Document 01/12/23 10:00 [facility] [id number] 01/12/23 10:27 [place] Document 01/12/23 10:05 [facility] [id number] 01/12/23 10:27 [facility] Document 01/12/23 10:07 [facility] [id number] 01/12/23 10:27 [facility] Document 01/12/23 10:10 [facility] [id number] 01/12/23 10:27 [facility] 01/12/23 01/12/23 01/12/23 10:00 10:05 10:07 Home O2 Evaluation [Oxygen] -Test Phase Resting Exercise Exercise -Oxygen Delivery Room Air Nasal Cannula Nasal Cannula -Oxygen Flow Rate (L/min) 2 3 [Pulse Oximetry] -Pulse Oximetry (90-100 %) 83 L 87 L 92 [Pulse Rate] -Pulse Rate (60-100 beats/min) 66 74 75 [Evaluation] -Activity Tolerance Good Fair Fair -Rating of Perceived Dyspnea (PD) +1 Mild, +2 Mild, Some +1 Mild, Noticeable to Difficulty, Noticeable to the Participant Noticeable to the Participant but Not to an the Observer but Not to an Observer Observer -Rate of Perceived Exertion (PE) 6 Very, very 9 Very light 6 Very, very Query Text:Click the Protocol Button light light to View the RPE Scale [Exercise] -Ambulation Distance (feet) 50 100 -Ambulation Distance (meters) 15.23 30.47 [Comments] -Home Oxygen Evaluation Comments Starting Home increased to 3l Pt's endurance o2 evaluation. /m is good, family increased to 1l remarks she is /m 84% very active at increased to 2l home. However, /m she is unsteady on her feet today. Impulsive with movement despite gait belt and grandson assisting with walk. Encourage PT eval for safe home d/c. [Charges] -Treatment Charges O2 Evaluation - Inpatient 01/12/23 10:10 Home O2 Evaluation [Oxygen] -Test Phase Exercise -Oxygen Delivery Nasal Cannula -Oxygen Flow Rate (L/min) 2 [Pulse Oximetry] -Pulse Oximetry (90-100 %) 94 [Pulse Rate] -Pulse Rate (60-100 beats/min) 78 [Evaluation] -Activity Tolerance Excellent -Rating of Perceived Dyspnea (PD) +1 Mild, Noticeable to the Participant but Not to an Observer -Rate of Perceived Exertion (PE) 6 Very, very Query Text:Click the Protocol Button light to View the RPE Scale [Exercise] -Ambulation Distance (feet) -Ambulation Distance (meters) [Comments] -Home Oxygen Evaluation Comments O2 requirments are as follows: 2l/m at rest and 3l/m with activity. Unable to determine needs at [facility]. overnight oxim can be completed at home as an outpatient. [Charges] -Treatment Charges
[2023-01-12 12:07] LABS: Glucose Point of Care 311 mg/dl (65-105)
--- NOTE | 2023-01-12 13:02 | PM.IMHP ---
H&P: HPI History of Present Illness Date/Time: 01/12/23 13:02 Chief Complaint: Hypoxia , Pneumonia, Dementia Narrative: this 87-year-old who lives at home with her family patient was found to be hypoxic with a saturation of 70% upon arrival patient was required to 6 L of oxygen initially thinking that she was going to need to be BiPAP. Patient received IV Rocephin and IV azithromycin was given a breathing treatment and started to turn around after the 2nd breathing treatment patient has severe dementia and is monitored by her family. According to family she needs to be closely monitored male faces are she may become combative. Patient's vitals this morning his potassium is 3.8 sodium 134, chloride 97, BUN is 48, current 1.59, glucose was 415 she was giving 10 units of regular insulin toe Ca is hyperglycemia related to IV steroids that she is receiving RBCs 4.32, wbc's 8.9, hemoglobin 12.0, platelets is 300. At this time we will attempt to have physical therapy to see patient in reverse see if we can get her skilled at a prison so that she can get stronger no the potentially go back home. Patient has a past medical history are acute on chronic renal insufficiency, COPD, hypertension, hyperlipidemia with dementia. Review of Systems Review of Systems: Hypoxia, Pneumonia, Demenita All systems reviewed & are unremarkable except as noted in HPI and below PMFSH Past Medical History Medical History Dementia Diabetes mellitus Hearing decreased HTN (hypertension) Microcytic anemia Onychomycosis Osteoporosis Rib pain on left side Vitamin B12 deficiency Surgical History Surgical History History of cholecystectomy History of hernia repair Family History Family History Father No problems noted. Mother No problems noted. Social History Social History Smoking status: Former smoker Tobacco type: cigarettes Additional smoking assessment comments: Quit over 30 years ago Alcohol intake: current Drinks per week: 1 Substance use: never Substance use type: prescription drug Lack of Transportation: No Lack of Food: Never True Current Housing: I Have Housing Concerned About Future Housing: No Difficulty Paying Gas/Electric Bills: No Difficulty Paying for Meds: No Currently Unemployed: No Education: Grade School Difficulty w/ Childcare or Family Care: No Additional living arrangements comments: . 8 Children. Occupation/Education: retired Spiritual care concerns: No Meds Home Medications and Allergies Home Medications Medication Instructions Recorded Confirmed Type donepezil 10 mg tablet See Rx Instructions .Route 12/01/22 01/11/23 Rx .COMPLEX #90 tabs lisinopril 20 mg tablet 20 mg PO DAILY #90 tabs 12/01/22 01/11/23 Rx magnesium oxide 400 mg PO DAILY #30 caps 12/06/22 01/11/23 Rx amlodipine 10 mg tablet 10 mg PO DAILY #90 tabs 12/14/22 01/11/23 Rx spironolactone 25 mg tablet 25 mg PO DAILY #30 tabs 01/03/23 01/11/23 Rx metformin 1,000 mg tablet See Rx Instructions .Route 01/09/23 01/11/23 Rx .COMPLEX #180 tabs Allergies Allergy/AdvReac Type Severity Reaction Status Date / Time No Known Allergies Allergy Verified 01/11/23 16:12 Vital Signs Vital Signs - 24 hr 01/11/23 15:17 01/11/23 15:17 01/11/23 15:17 Temperature 97.2 F L 97.2 F L Pulse Rate 80 80 80 Respiratory Rate 22 H 22 H Blood Pressure 134/105 H 134/105 H Pulse Oximetry 75 L 75 L Oxygen Delivery Room Air Room Air Oxygen Flow Rate 01/11/23 15:17 01/11/23 16:21 01/11/23 16:30 Temperature Pulse Rate 81 85 Respiratory Rate 24 H 22 H Blood Pressure Pulse Oximetry 100 99 100 Oxygen Delivery Nasal Cannula Oxygen
[2023-01-12] MEDS: ACETAMINOPHEN 325 MG TABLET 650 MG PO ×2 (14:47→20:58)
[2023-01-12] MEDS: diphenhydrAMINE HCl INJ 50 MG/ML VIAL 25 MG IV PUSH ×2 (14:47→22:58)
[2023-01-12 18:02] LABS: Glucose Point of Care 185 mg/dl (65-105)
[2023-01-12 19:33] LABS: Troponin I 21.7 ng/L (0.00-60.4)
[2023-01-12] MEDS: MELATONIN 5 MG TABLET PO (20:58)
[2023-01-12] MEDS: traZODone HCL 50 MG TABLET PO (20:58)
[2023-01-12 21:03] LABS: Glucose Point of Care 243 mg/dl (65-105)
[2023-01-13] VITALS (7 sets, daily range): BP systolic 128–129; BP diastolic 42–45; PULSE 57–69; RESP 16–20; TEMP 35.9–36.6; O2SAT 87–95
[2023-01-13] MEDS: methylPREDNISolone SOD SUCC 40 MG VIAL IV PUSH (05:03)
[2023-01-13] MEDS: IPRATROPIUM 0.5 MG/ALBUTEROL SULFATE 2.5 MG AMPUL.NEB 3 ML INHALATION ×2 (05:07→12:19)
[2023-01-13 05:23] LABS: Hematocrit 37.7 % (35.0-42.0); Hemoglobin 12.2 g/dL (11.7-13.8); Mean Corpuscular HGB Conc 32.4 g/dL (32.0-36.0); Mean Corpuscular Hemoglobin 27.8 pg (27.0-31.0); Mean Corpuscular Volume 85.9 fL (78.0-102.0); Mean Platelet Volume 10.7 fl (9.2-11.8); Platelet Count Result 310 K/mm3 (150-420); Red Blood Count 4.39 M/mm3 (4.20-5.40); Red Cell Distribution Width 12.8 % (11.6-14.4)
[2023-01-13 05:34] LABS: Anion Gap 6 mmol/L (8-16); Blood Urea Nitrogen 57 mg/dL (7-18); Calcium 9.2 mg/dL (8.5-10.1); Carbon Dioxide 28 mmol/L (21-32); Chloride 95 mmol/L (98-108); Estimated Glomerular Filt Rate 35; Glucose 156 mg/dL (70-99); Osmolality Calculated 286 mOsm/kg (285-295); Potassium 4.1 mmol/L (3.5-5.1); Sodium 129 mmol/L (136-145)
[2023-01-13 07:58] LABS: Glucose Point of Care 206 mg/dl (65-105)
[2023-01-13] MEDS: INSULIN HUMAN LISPRO (*BKC) 1,000 UNITS/10 ML VIAL SUB-Q ×2 (08:58→11:54)
[2023-01-13] MEDS: DONEPEZIL HCL 5 MG TABLET 10 MG PO (08:59)
[2023-01-13] MEDS: lisinopriL 20 MG TABLET PO (08:59)
[2023-01-13] MEDS: MAGNESIUM OXIDE 400 MG TABLET PO (08:59)
[2023-01-13] MEDS: ENOXAPARIN 30 MG/0.3 ML SYRINGE SUB-Q (08:59)
[2023-01-13] MEDS: amLODIPine BESYLATE 5 MG TABLET 10 MG PO (09:00)
[2023-01-13] MEDS: SPIRONOLACTONE 25 MG TABLET PO (09:00)
--- NOTE | 2023-01-13 11:42 | PM.DS ---
DS: Admitting Diagnosis Discharge Date 01/13/2023 Admitting Diagnosis Hypertension, Hypoxia, Pneumonia, acute kidney injury DS: Discharge Diagnosis Discharge Diagnosis (1) Acute respiratory failure with hypoxia and hypercarbia: Code(s): J96.01 - Acute respiratory failure with hypoxia; J96.02 - Acute respiratory failure with hypercapnia Status: Acute Assessment and Plan: Oxygen at 2l requires home oxygen breathing treatment IV antibiotics IV steroids home with oxygen (2) Acute renal insufficiency: Code(s): N28.9 - Disorder of kidney and ureter, unspecified Status: Acute Assessment and Plan: improving will continue to monitor avoid any nephrotoxic medication (3) Hypertension: Qualifiers: Hypertension type: unspecified Qualified Code(s): I10 - Essential (primary) hypertension Code(s): I10 - Essential (primary) hypertension Status: Acute Assessment and Plan: continue to monitor Continue home medication (4) Diabetes mellitus: Code(s): E11.9 - Type 2 diabetes mellitus without complications Status: Chronic Assessment and Plan: monitor blood sugars a.c. and HS Hold all oral anti glycemic Insulin per sliding scale continue home medication (5) Dementia: Code(s): F03.90 - Unspecified dementia, unspecified severity, without behavioral disturbance, psychotic disturbance, mood disturbance, and anxiety Status: Chronic Assessment and Plan: monitor due to family feels like you would better benefit from being in your own environment we will plan on discharging you and monitoring you as a outpatient (6) Emphysema lung: Code(s): J43.9 - Emphysema, unspecified Status: Acute Assessment and Plan: Nebulizer treatment cough medication (7) COPD (chronic obstructive pulmonary disease): Code(s): J44.9 - Chronic obstructive pulmonary disease, unspecified Status: Acute (8) Hyponatremia: Code(s): E87.1 - Hypo-osmolality and hyponatremia Status: Acute Assessment and Plan: Fluid restriction avoid drinking excessively monitor output make sure you have your labs drawn next week As we discussed about her sodium level we need to keep a close eye on her DS: Summary Hospital Course Reason for hospitalization: weakness, falls, hyponatremia, COPD exacerbation Hospital Course: this is a 87-year-old female who was brought into the emergency room for hypoxia who was requiring oxygen patient has severe dementia. Patient likes to wander around and is very confused family take very good care of patient although she has recurrent extensive care. Patient was in need of 2 L of oxygen use will sitting and she will need nebulizer for home as well as inhalers. Family is with her at all times and treated for possible pneumonia initial thought was to transfer patient to shelter unfortunately the shelter does not allow family's to spend the night so family decided to go ahead and take her home as they would like somebody from the family to be with her at all times patient is easily directed and is pleasantly confused she is eating and drinking without any difficulty no nausea vomiting patient has several stools needs assistance with all ADLs patient was set up with social worker masters so they can assist with social worker masters issues at this time will plan patient discharged she has received IV antibiotics, IV fluids, IV steroids, and breathing treatment Time Spent with Patient Time attestation: Total time spent providing and/or coordinating discharge services: Exam Narrative: GENERAL:Well-appearing, frail , mild resp acute distress. HEAD:Normocephalic, atraumatic. EYES: PERRLA and EOMI. ENT: Nares clear, no rhinorrhea or epistaxis. Mucous membranes moist. CHEST: Course to auscultation. mild respiratory distress. HEART: Regular rate and rhythm.Normal peripheral pulses. ABDOMEN:
[2023-01-13] MEDS: FUROSEMIDE INJ 20 MG/2 ML VIAL IV PUSH (11:53)
[2023-01-13 11:56] LABS: Glucose Point of Care 272 mg/dl (65-105)
--- NOTE | 2023-01-13 13:16 | PC.NURSE ---
Pt discharged home with family care. Dischagre instructions regarding new medications: dosing, times, SE and current medications. Discharge instructions regarding O2 use at home and using the smaller tanks for traveling. Blood sugar instructions given regarding high and low blood sugars. Information faxed to [facility]. Pt VSS. Asisted to the car via WC and RN.
--- NOTE | 2023-01-16 11:32 | PC.NURSE ---
The daughter states they received and understood the discharge instructions. The daughter also states she had excellent care, the nurse up there are all wonderful .
== END 2023-01-13 13:00 | disposition home health service (06) | DRG 190 ==
LOC: CHSED 19:09 → CHS2ND 21:26
PROVIDERS: Nurse Practitioner Family; Admitting Provider Internal Medicine; Emergency Provider Internal Medicine Critical Care Medicine; PCP Family Medicine; Visit Provider Internal Medicine
DX: J44.1 Chronic obstructive pulmonary disease with (acute) exacerbation (principal); J96.01 Acute respiratory failure with hypoxia; J96.02 Acute respiratory failure with hypercapnia; E87.1 Hypo-osmolality and hyponatremia; N17.9 Acute kidney failure, unspecified; I12.9 Hypertensive chronic kidney disease with stage 1 through stage 4 chronic kidney disease, or unspecified chronic kidney disease; E11.22 Type 2 diabetes mellitus with diabetic chronic kidney disease; N18.9 Chronic kidney disease, unspecified; Z20.822 Contact with and (suspected) exposure to COVID-19; E78.5 Hyperlipidemia, unspecified; M81.0 Age-related osteoporosis without current pathological fracture; E53.8 Deficiency of other specified B group vitamins; F03.90 Unspecified dementia, unspecified severity, without behavioral disturbance, psychotic disturbance, mood disturbance, and anxiety; Z87.891 Personal history of nicotine dependence; Z90.49 Acquired absence of other specified parts of digestive tract
CPT/HCPCS: 36415; 36600; 71045; 71275; 80048; 80053; 82805; 82948; 83605; 83735; 83880; 84484; 85025; 85027; 85380; 85610; 85730; 87637; 93005; 94618; 94640; 96361; 96365; 96366; 96367; 96372; 96375; 96376; 97161; 97530; 99285; A9270; G0378; J0456; J0696; J1200; J1650; J1815; J1940; J2920; J2930; J7030; J7050; J7060; Q9967

== ENCOUNTER 2023-01-19 12:26 | Outpatient (CLI) | payer MEDICARE, SELFPAY ==
[2023-01-19 13:03] LABS: Alanine Aminotransferase 18 U/L (14-59); Albumin Level 2.9 g/dL (3.4-5.0); Alkaline Phosphatase 64 U/L (46-116); Anion Gap 4 mmol/L (8-16); Aspartate Amino Transferase 15 U/L (15-37); Bilirubin,Total 0.4 mg/dL (0.00-1.00); Blood Urea Nitrogen 21 mg/dL (7-18); Calcium 9.8 mg/dL (8.5-10.1); Carbon Dioxide 35 mmol/L (21-32); Chloride 101 mmol/L (98-108); Estimated Glomerular Filt Rate > 60; Glucose 114 mg/dL (70-99); Osmolality Calculated 294 mOsm/kg (285-295); Potassium 4.8 mmol/L (3.5-5.1); Sodium 140 mmol/L (136-145); Total Protein 6.5 g/dL (6.4-8.2)
== END 2023-01-19 12:27 | disposition home or self-care (01) ==
LOC: CHSLAB 12:29
PROVIDERS: PCP Family Medicine; Visit Provider Family Medicine
DX: E87.1 Hypo-osmolality and hyponatremia (principal)
CPT/HCPCS: 36415; 80053

== ENCOUNTER 2023-01-26 10:13 | Outpatient (NON) | payer MEDICARE, SELFPAY ==
[2023-01-26 10:32] LABS: Cholesterol 95 mg/dL (0-200); HDL Direct 42 mg/dL (40-60); LDL Cholesterol Calculated 36 mg/dL (<130); Triglycerides 83 mg/dL (0-150)
== END 2023-01-26 10:14 | disposition home or self-care (01) ==
LOC: CHSHH 10:14
PROVIDERS: Visit Provider Nurse Practitioner Family
DX: E11.9 Type 2 diabetes mellitus without complications (principal)
CPT/HCPCS: 36415; 80061

== ENCOUNTER 2023-01-31 12:14 | Outpatient (CLI) | payer MEDICARE, SELFPAY ==
--- NOTE | ~2023-01-31 | DEXA_ITS ---
Bone Density Report Name: DELBERT SCHULER Age: 87 Sex: Female Ethnicity: White Date of : 1935 Indication: postmenopausal; screening for osteoporosis; height loss; prior fracture; asthma or emphysema; Referring Provider: DUNIA CERVANTES Study: Bone densitometry was performed. Exam Date: January 31, 2023 Accession number: [id number] Bone Density: Region BMD T-score Z-score Classification AP Spine(L1-L4) 0.673 -3.4 -0.5 Osteoporosis Femoral Neck (Left) 0.694 -1.4 1.1 Osteopenia Total Hip (Left) 0.675 -2.2 0.1 Osteopenia Femoral Neck (Right) 0.500 -3.1 -0.6 Osteoporosis Total Hip (Right) 0.593 -2.9 -0.5 Osteoporosis Femoral Neck Mean 0.597 -2.3 0.3 Osteopenia Total Hip Mean 0.634 -2.5 -0.2 Osteoporosis World Health Organization criteria for BMD impression classify patients as: Normal (T-score at or above -1.0), Osteopenia (T-score between -1.0 and -2.5), or Osteoporosis (T-score at or below -2.5). 10-year Fracture Risk: FRAX not reported because: Some T-score for Spine Total or Hip Total or Femoral Neck at or below -2.5 Clinical Information Provided by Patient: Has had a low trauma fracture Has used the following medications: Vitamin D Has the following medical conditions: Asthma or Emphysema Patient maximum height was 62 Menopause Age: 52 No regular weight bearing exercise Drinks caffeinated beverages Onset of menses at age 14 Number of children 8 Impression: The patient has established osteoporosis, based on the Total Spine T-score and the existence of a prior fracture. The patient has risk factors, including: previous fracture. Discussion: HIGH RISK OF FRACTURE. BONE DENSITY IS UNDESIRABLY LOW AT ONE OR MORE SKELETAL SITES, CONSISTENT WITH POSTMENOPAUSAL OSTEOPOROSIS. This patient's lowest T-score, in a patient who has previously fractured, meets the World Health Organization's (WHO) criteria for severe osteoporosis. In untreated patients, the risk of osteoporotic fracture increases approximately two-fold for each 1.0 SD decrease in T-score. Low bone density is not the only risk factor for fracture; also consider factors such as patient's age, frailty or poor health, risk of falling, risk of injury, previous osteoporotic fracture, family history of osteoporosis, cigarette smoking, low body weight, etc. Not everyone with low bone mineral density has osteoporosis; osteomalacia and other metabolic bone disorders should also be considered. Patients who have osteoporosis should be evaluated for specific diseases and conditions (secondary causes) that may cause or contribute to bone loss. The [place] [employer]ocrinologists (AACE) and National Osteoporosis Foundation (NOF) recommend pharmacologic intervention for all postmenopausal women whose T-score is in this ran
== END 2023-01-31 12:15 | disposition home or self-care (01) ==
LOC: CHSIMG 12:17
PROVIDERS: PCP Nurse Practitioner Family; Visit Provider Nurse Practitioner Family
DX: M81.0 Age-related osteoporosis without current pathological fracture (principal); Z78.0 Asymptomatic menopausal state; M85.89 Other specified disorders of bone density and structure, multiple sites
CPT/HCPCS: 77080

== ENCOUNTER 2023-05-14 15:30 | Observation (INO) | payer MEDICARE, SELFPAY ==
[2023-05-14] VITALS (54 sets, daily range): BP systolic 106–174; BP diastolic 40–156; PULSE 46–84; RESP 12–32; TEMP 35.9–37.1; O2SAT 94–100; BMI 24.1
--- NOTE | ~2023-05-14 | XR_ITS ---
EXAMINATION: XR chest 1V portable DATE: 05/14/2023 17:09 INDICATION: Syncope. TECHNIQUE: A single frontal view of the chest was obtained. COMPARISON: Chest single view 01/11/2023, chest CT 01/11/2023 FINDINGS: The lungs are hyperexpanded with lucencies, consistent with emphysema. Calcified pulmonary nodules and calcified hilar and mediastinal lymph nodes are consistent with old granulomatous disease . There are mild airspace opacities in the lower lung zones. No pleural effusion or pneumothorax. The heart size is normal. IMPRESSION: 1. Mild airspace opacities in the lower lung zones, consistent with atelectasis/scarring versus pneum onia. 2. Emphysema. Reviewed, dictated and finalized at location E. IMPRESSION: 1. Mild airspace opacities in the lower lung zones, consistent with atelectasis /scarring versus pneumonia. 2. Emphysema.
--- NOTE | ~2023-05-14 | XR_ITS ---
EXAMINATION: XR hip LT 2V w AP pelvis DATE: 05/14/2023 21:17 INDICATION: Left hip pain. Fall. TECHNIQUE: An anteroposterior view of the pelvis and 2 views of left hip were obtained. COMPARISON: Pelvis and left hip radiographs 08/24/2021 FINDINGS: Bone alignment is normal. No fracture. There is mild osteoarthritis of the hips. There is m ild lumbar spondylosis. Osteitis pubis is noted. IMPRESSION: 1. Mild osteoarthritis of the hips. Reviewed, dictated and finalized at location E.
--- NOTE | ~2023-05-14 | CT_ITS ---
EXAMINATION: CT brain wo con DATE: 05/14/2023 19:48 INDICATION: Syncope. TECHNIQUE: Computed tomography (CT) of the head was performed without intravenous contrast. The mA wa s adjusted according to patient size. Iterative reconstruction technique was employed. The dose-lengt h product was 605.33 mGy-cm. 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 There are scattered areas of low attenuation i n the cerebral white matter. There is no intracranial hemorrhage, acute infarction, or abnormal intra cranial mass lesion. The ventricles are normal in size. There is mild mucosal thickening in the paran alex sinuses. The mastoid air cells are normal. The orbits are normal. IMPRESSION: 1. 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 2. Mild nonspecific cerebral white matter disease, which likely represents chronic small vessel ische nany disease. Reviewed, dictated and finalized at location E. IMPRESSION: 1. 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 2. 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
--- NOTE | ~2023-05-14 | CT_ITS ---
EXAMINATION: CT cervical spine wo con DATE: 05/14/2023 19:48 INDICATION: Syncope. TECHNIQUE: Computed tomography (CT) of the cervical spine was performed without intravenous contrast. Automated exposure control and iterative reconstruction technique were employed. The dose-length pro duct was 103.88 mGy-cm. COMPARISON: CT cervical spine 07/11/2018 FINDINGS: Emphysema is noted. Bone alignment is normal. Vertebral body heights are normal. There is m ildly decreased disc height at C4-C5. The following disc levels are specifically discussed: C2-C3: There is no uncovertebral joint osteoarthritis. There is severe right and mild left facet join t osteoarthritis. There is mild right neural foraminal stenosis. There is no central canal stenosis. C3-C4: There is mild bilateral uncovertebral joint osteoarthritis. There is severe bilateral facet jacey int osteoarthritis. There is mild lateral neural foraminal stenosis. There is no central canal stenos is. C4-C5: There is mild left uncovertebral joint osteoarthritis. There is mild right and severe left fac et joint osteoarthritis. There is mild bilateral neural foraminal stenosis. There is no central canal stenosis. C5-C6: There is no uncovertebral joint osteoarthritis. There is severe bilateral facet joint osteoart hritis. There is mild right neural foraminal stenosis. There is no central canal stenosis. C6-C7: There is no uncovertebral joint osteoarthritis. There is mild bilateral facet joint osteoarthr itis. There is no neural foraminal stenosis. There is no central canal stenosis. C7-T1: There is no uncovertebral joint osteoarthritis. There is mild bilateral facet joint osteoarthr itis. There is no neural foraminal stenosis. There is no central canal stenosis. IMPRESSION: 1. No fracture. 2. Mild cervical spondylosis. Reviewed, dictated and finalized at location E.
--- NOTE | 2023-05-14 15:48 | ED.GENADULT ---
HPI - General Adult General Chief complaint: Syncope Stated complaint: fall/syncope Time Seen by Provider: 05/14/23 15:48 Source: patient Mode of arrival: ambulatory Limitations: dementia History of Present Illness HPI narrative: 87-year-old white female history of dimension emphysema was inside of a hot House without air conditioning. family was outside heard her fall came in found her unresponsive on the floor she is unresponsive for about 3 minutes took about 5 minutes to become alert and back to her normal self. She had of fecal incontinence without any bleeding. Patient is normally alert and oriented x1 has a history of al psi MERS and emphysema patient was able to get up and go the bathroom per EMS and she had a diarrheal stool and then after being on the toilet she could not take more than 2 steps and look like she is going to fall so they put her on a cart. Vitals at the scene were 120/44 with a pulse of 47 sinus bradycardia O2 sat on room air 95% she was afebrile. Had no vomiting but spit up a little phlegm. Social history she lives with her daughter and son. History of was obtained from Angela who found her which is family member and her caregiver arrived to the scene about 10 minutes later. Denies any problems eating or drinking stooling or voiding except for the diarrhea that she had has had no problems walking talking seeing or hearing denies any numbness or weakness cough fever sore throat shortness of breath runny nose bleeding or bruising rash or itching swelling lumps or bumps. Past medical history dementia emphysema hypertension diabetes. DNR per family /daughter Related Data Home Medications Medication Instructions Recorded Confirmed metformin 1,000 mg tablet 1,000 mg PO DAILY 01/24/23 05/14/23 Allergies Allergy/AdvReac Type Severity Reaction Status Date / Time No Known Allergies Allergy Verified 05/14/23 18:42 Review of Systems Review of Systems: All systems reviewed & are unremarkable except as noted in HPI and below PMFSH Past Medical History Medical History COPD (chronic obstructive pulmonary disease) Dementia Diabetes mellitus Emphysema lung Hearing decreased HTN (hypertension) Hyponatremia Microcytic anemia Onychomycosis Osteoporosis Rib pain on left side Vitamin B12 deficiency (Unknown) Surgical History Surgical History History of cholecystectomy History of hernia repair Family History Family History Father No problems noted. Mother No problems noted. Social History Social History Smoking status: Former smoker Tobacco type: cigarettes Additional smoking assessment comments: Quit over 30 years ago Alcohol intake: current Drinks per week: 1 Substance use: never Lack of Transportation: No Lack of Food: Never True Current Housing: I Have Housing Concerned About Future Housing: No Difficulty Paying Gas/Electric Bills: No Difficulty Paying for Meds: No Currently Unemployed: No Education: Grade School Difficulty w/ Childcare or Family Care: No Additional living arrangements comments: . 8 Children. Occupation/Education: retired Spiritual care concerns: No Exam Narrative: pleasant elderly? blood pressure 118/41 pulse 48 repeat 59 respirations 15, 36.1? cellulitis, O2 sat on room air 98% White patient no apparent distress.? Head normocephalic, atraumatic.? Eyes conjunctiva pink sclera nonicteric.? Extraocular movements are intact.? Ears externally normal.? Oropharynx is clear with moist mucous membranes without exudates.? Neck is supple nontender no lymphadenopathy.? Back is nontender.? Lungs are clear.? Heart is regular rate and rhythm without murmurs gallops or rubs.
--- NOTE | 2023-05-14 15:49 | ECG_ITS ---
Measurements Intervals [place] Rate: 46 P: -21 DC: 164 QRS: -39 QRSD: 129 T: 39 QT: 456 QTc: 399 Interpretive Statements SINUS BRADYCARDIA LEFT AXIS DEVIATION RIGHT BUNDLE BRANCH BLOCK ABNORMAL ECG COMPARED TO ECG 01/11/2023 16:29:57 SINUS BRADYCARDIA NOW PRESENT Electronically Signed On 05-14-2023 16:28:38 CDT by Chris Buenrostro D.O.
[2023-05-14 15:53] LABS: Glucose Point of Care 171 mg/dl (65-105)
[2023-05-14 16:17] LABS: Hematocrit 35.4 % (35.0-42.0); Hemoglobin 11.8 g/dL (11.7-13.8); Mean Corpuscular HGB Conc 33.3 g/dL (32.0-36.0); Mean Corpuscular Hemoglobin 29.1 pg (27.0-31.0); Mean Corpuscular Volume 87.4 fL (78.0-102.0); Mean Platelet Volume 9.6 fl (9.2-11.8); Platelet Count Result 345 K/mm3 (150-420); Red Blood Count 4.05 M/mm3 (4.20-5.40); Red Cell Distribution Width 12.8 % (11.6-14.4); White Blood Count 10.6 K/mm3 (4.8-10.8)
[2023-05-14 16:35] LABS: Albumin Level 3.7 g/dL (3.4-5.0); Alkaline Phosphatase 56 U/L (46-116); Anion Gap 7 mmol/L (8-16); Aspartate Amino Transferase 30 U/L (15-37); Bilirubin,Total 0.5 mg/dL (0.00-1.00); Blood Urea Nitrogen 24 mg/dL (7-18); Calcium 9.5 mg/dL (8.5-10.1); Carbon Dioxide 27 mmol/L (21-32); Chloride 95 mmol/L (98-108); Estimated Glomerular Filt Rate 33; Glucose 166 mg/dL (70-99); Magnesium 1.9 mg/dL (1.8-2.4); Osmolality Calculated 276 mOsm/kg (285-295); Potassium 5.4 mmol/L (3.5-5.1); Sodium 129 mmol/L (136-145); Total Protein 6.9 g/dL (6.4-8.2); Troponin I 8.6 ng/L (0.00-60.4)
[2023-05-14 16:36] LABS: Alanine Aminotransferase < 6 U/L (14-59)
[2023-05-14] MEDS: SODIUM CHLORIDE 0.9% IV 1,000 ML 999 ML IV CONT (16:44)
[2023-05-14 17:57] LABS: Bilirubin Urine Negative (Negative); Blood Urine 1+ (Negative); Color Urine Light Yellow (Yellow); Glucose Urine UA Negative (Negative); Ketones Urine Negative (Negative); Leukocyte Esterase Ur 2+ LEU/UL (Negative); Nitrate Urine Negative (Negative); Protein Urine Negative (Negative); Urobilinogen Urine 0.2 mg/dL (0.2-1.0)
[2023-05-14 18:04] LABS: Appearance Urine Cloudy (Clear)
[2023-05-14 18:05] LABS: Add Urine Microscopic? YES; Amorphous Sediment Urine Moderate; Bacteria Urine 2+ /hpf; Mucus Urine Few /lpf; RBC Urine 0-2 /hpf (0-2); Squamous Epithelial Cell Urine Many /hpf (Few); WBC Clumps Urine Present /hpf
[2023-05-14] MEDS: ACETAMINOPHEN 325 MG TABLET 650 MG PO (21:15)
--- NOTE | 2023-05-14 21:42 | PC.NURSE ---
Pt sitting bedside c family in room, VSS, pt given food tray and drink. Call placed to 2nd floor for bed assignment. Pt will go to Rm [id number]
[2023-05-14 22:33] LABS: Basophils Absolute Auto 0.02 K/mm3 (0.00-0.10); Basophils Percent Auto 0.2 % (0.0-1.0); Hematocrit 36.4 % (35.0-42.0); Hemoglobin 11.8 g/dL (11.7-13.8); Immature Granulocyte Absolute 0.05 K/mm3 (0.00-0.00); Immature Granulocyte Percent A 0.5 % (0.0-0.0); Lymphocytes Absolute Auto 0.68 K/mm3 (1.10-4.50); Mean Corpuscular HGB Conc 32.4 g/dL (32.0-36.0); Mean Corpuscular Hemoglobin 28.4 pg (27.0-31.0); Mean Corpuscular Volume 87.5 fL (78.0-102.0); Mean Platelet Volume 9.8 fl (9.2-11.8); Monocytes Absolute Auto 0.48 K/mm3 (0.10-0.90); Monocytes Percent Auto 4.9 % (2.0-11.0); Neutrophils Absolute Auto 8.5 K/mm3 (1.7-7.2); Neutrophils Percent Auto 87.4 % (50.0-70.0); Platelet Count Result 360 K/mm3 (150-420); Red Blood Count 4.16 M/mm3 (4.20-5.40); Red Cell Distribution Width 12.8 % (11.6-14.4); White Blood Count 9.7 K/mm3 (4.8-10.8)
--- NOTE | 2023-05-14 22:58 | ADMGEN ---
This patient, Myrna ePna, was admitted to 2nd Floor Room 206-1. Patient/family oriented to hospital policies and general routines including ID bracelet, bed and alarms, visiting hours, pain management, procedures, bathroom and other care routines, personal items, smoking policy, room service/diet, and visiting hours. Information on how to activate the Rapid Response Team has been discussed. Patient/Family are encouraged to report perceived risks to care and to ask questions if they do not understand what they are told or what they should do.
[2023-05-15 03:47] VITALS: BP 146/44; PULSE 54; RESP 16; TEMP 36.2; O2SAT 96
--- NOTE | 2023-05-15 03:52 | PC.NURSE ---
Patient pulls on her IV and her telemetry box and wires very frequently. Patient pulled her IV out this time. Catheter intact. No bleeding noted from site. Pressure dressing applied. Granddaughter @ bedside. Call light in reach.
[2023-05-15 07:05] LABS: Basophils Absolute Auto 0.02 K/mm3 (0.00-0.10); Basophils Percent Auto 0.3 % (0.0-1.0); Eosinophils Absolute Auto 0.05 K/mm3 (0.02-0.50); Eosinophils Percent Auto 0.7 % (1.0-6.0); Hematocrit 38.1 % (35.0-42.0); Hemoglobin 12.4 g/dL (11.7-13.8); Immature Granulocyte Absolute 0.03 K/mm3 (0.00-0.00); Immature Granulocyte Percent A 0.4 % (0.0-0.0); Lymphocytes Absolute Auto 0.81 K/mm3 (1.10-4.50); Lymphocytes Percent Auto 11.3 % (18.0-42.0); Mean Corpuscular HGB Conc 32.5 g/dL (32.0-36.0); Mean Corpuscular Hemoglobin 28.4 pg (27.0-31.0); Mean Corpuscular Volume 87.4 fL (78.0-102.0); Mean Platelet Volume 9.7 fl (9.2-11.8); Monocytes Absolute Auto 0.63 K/mm3 (0.10-0.90); Monocytes Percent Auto 8.8 % (2.0-11.0); Neutrophils Absolute Auto 5.6 K/mm3 (1.7-7.2); Neutrophils Percent Auto 78.5 % (50.0-70.0); Platelet Count Result 356 K/mm3 (150-420); Red Blood Count 4.36 M/mm3 (4.20-5.40); Red Cell Distribution Width 12.8 % (11.6-14.4); White Blood Count 7.1 K/mm3 (4.8-10.8)
[2023-05-15 07:15] LABS: Anion Gap 5 mmol/L (8-16); Blood Urea Nitrogen 20 mg/dL (7-18); Calcium 9.7 mg/dL (8.5-10.1); Carbon Dioxide 30 mmol/L (21-32); Chloride 100 mmol/L (98-108); Estimated Glomerular Filt Rate 45; Glucose 103 mg/dL (70-99); Osmolality Calculated 282 mOsm/kg (285-295); Potassium 4.7 mmol/L (3.5-5.1); Sodium 135 mmol/L (136-145)
[2023-05-15 07:55] LABS: Glucose Point of Care 113 mg/dl (65-105)
[2023-05-15] MEDS: ACETAMINOPHEN 325 MG TABLET 650 MG PO (07:56)
[2023-05-15 08:00] VITALS: BP 160/51; PULSE 66; RESP 14; TEMP 36.6; O2SAT 98
[2023-05-15] MEDS: amLODIPine BESYLATE 5 MG TABLET 10 MG PO (08:54)
--- NOTE | 2023-05-15 09:07 | PM.SD2 ---
Same Day Admit/Disch: HPI History of Present Illness Chief complaint: HYPERKALEMIA UTI HYPONATREMIA Narrative: Myrna Pena is a 87 year old female General Chief complaint: Syncope Stated complaint: fall/syncope Time Seen by Provider: 05/14/23 15:48 Source: patient Mode of arrival: ambulatory Limitations: dementia History of Present Illness HPI narrative: ?87-year-old white female history of dimension emphysema was inside of a hot ? House without air conditioning.? family was outside heard her fall came in found her unresponsive on the floor she is unresponsive for about 3 minutes took about 5 minutes to become alert and back to her normal self.? She had of fecal incontinence without any bleeding.? Patient is normally alert and oriented x1 has a history of al psi MERS and emphysema patient was able to get up and go the bathroom per EMS and she had a diarrheal stool and then after being on the toilet she could not take more than 2 steps and look like she is going to fall so they put her on a cart.? Vitals at the scene were 120/44 with a pulse of 47 sinus bradycardia O2 sat on room air 95% she was afebrile.? Had no vomiting but spit up a little phlegm. ? Social history she lives with her daughter and son. ? History of was obtained from Angela who found her which is family member and her caregiver arrived to the scene about 10 minutes later. ? Denies any problems eating or drinking stooling or voiding except for the diarrhea that she had has had no problems walking talking seeing or hearing denies any numbness or weakness cough fever sore throat shortness of breath runny nose bleeding or bruising rash or itching swelling lumps or bumps. ? Past medical history dementia emphysema hypertension diabetes.? DNR per family /daughter Related Data [facility] Past Medical History Medical History COPD (chronic obstructive pulmonary disease) Dementia Diabetes mellitus Emphysema lung Hearing decreased HTN (hypertension) Hyponatremia Microcytic anemia Onychomycosis Osteoporosis Rib pain on left side Vitamin B12 deficiency (Unknown) Surgical History Surgical History History of cholecystectomy History of hernia repair Family History Family History Father Old age, dementia Mother Cancer Sibling Breast cancer Son Oral cancer Lung cancer Bladder cancer Social History Social History Smoking packs per day: 1 Smoking cigarettes per day: 20.0 Smoking status: Former smoker Tobacco type: cigarettes Smoking end date: 10/30/92 Additional smoking assessment comments: Quit over 30 years ago Alcohol intake: former Drinks per week: 1 Substance use: never Lack of Transportation: No Lack of Food: Never True Current Housing: I Have Housing Concerned About Future Housing: No Difficulty Paying Gas/Electric Bills: No Difficulty Paying for Meds: No Currently Unemployed: No Education: Grade School Difficulty w/ Childcare or Family Care: No Additional living arrangements comments: . 8 Children. Occupation/Education: retired Spiritual care concerns: No Comments At time as signature, I have reviewed and agree with nursing past medical, social, surgical and family history. Please see nursing chart for further information. There is no relevant family history pertinent to the presenting complaint. Same Day Admit/Disch: Med Pre-admit Medications Home Medications Medication Instructions Recorded Confirmed Type ipratropium 0.5 mg-albuterol 3 mg 3 ml inhalation Q6H PRN shortness 01/13/23 05/14/23 Rx (2.5 mg base)/3 mL nebulization of breath #90 mL soln lisinopril 20 mg tablet See Rx Instructions .Route 01/19/23 05/15/23 Rx .COMPLEX #90 tabs metformin
--- NOTE | 2023-05-15 10:37 | PC.NURSE ---
Pt discharged to home with family. Discharge instructions given to pt and CG. New medication Bactrum DS , instructions given to both pt and CG. Follow up appointment with PCP reviewed. Pt taken to family car by RN per AMINTA.
--- NOTE | 2023-05-24 15:32 | PC.NURSE ---
Grandson states they received and understood the discharge instructions. He also states the nurses upstairs were very good .
== END 2023-05-15 09:30 | disposition home health service (06) ==
LOC: CHSED 21:37 → CHS2ND 21:54
PROVIDERS: Nurse Practitioner Family; Admitting Provider Internal Medicine; Emergency Provider Emergency Medicine; PCP Family Medicine; Visit Provider Internal Medicine
DX: E87.1 Hypo-osmolality and hyponatremia (principal); E87.5 Hyperkalemia; N39.0 Urinary tract infection, site not specified; N28.9 Disorder of kidney and ureter, unspecified; J44.9 Chronic obstructive pulmonary disease, unspecified; I10 Essential (primary) hypertension; E53.8 Deficiency of other specified B group vitamins; E11.9 Type 2 diabetes mellitus without complications; M81.0 Age-related osteoporosis without current pathological fracture; F03.90 Unspecified dementia, unspecified severity, without behavioral disturbance, psychotic disturbance, mood disturbance, and anxiety; Z87.891 Personal history of nicotine dependence
CPT/HCPCS: 36415; 70450; 71045; 72125; 73502; 80048; 80053; 81001; 82948; 83735; 84484; 85025; 85027; 87077; 87086; 87088; 87186; 93005; 96361; 96365; 99285; A9270; G0378; J0696; J7030

== ENCOUNTER 2023-05-16 11:23 | Outpatient (CLI) | payer MEDICARE, SELFPAY ==
--- NOTE | ~2023-05-16 | XR_ITS ---
XR knee LT 3V DATE: 05/16/2023 11:46 INDICATION: Left knee pain TECHNIQUE: 3 views including crosstable lateral COMPARISON: None FINDINGS: There is osteopenia. Superior pole patellar enthesopathy at the quadriceps tendon insertion site. No fracture or dislocation, periosteal reaction or bone destruction is detected. The joint spaces are relatively preserved. No radiopaque intra-articular loose body or chondrocalcinosis. IMPRESSION: Osteopenia Superior pole patellar enthesopathy Reviewed, dictated and finalized at location L.
[2023-05-16 11:42] LABS: Basophils Absolute Auto 0.03 K/mm3 (0.00-0.10); Basophils Percent Auto 0.4 % (0.0-1.0); Eosinophils Absolute Auto 0.14 K/mm3 (0.02-0.50); Eosinophils Percent Auto 1.8 % (1.0-6.0); Hematocrit 34.4 % (35.0-42.0); Immature Granulocyte Absolute 0.03 K/mm3 (0.00-0.00); Immature Granulocyte Percent A 0.4 % (0.0-0.0); Lymphocytes Absolute Auto 1.17 K/mm3 (1.10-4.50); Lymphocytes Percent Auto 14.8 % (18.0-42.0); Mean Corpuscular Hemoglobin 28.6 pg (27.0-31.0); Mean Corpuscular Volume 89.4 fL (78.0-102.0); Mean Platelet Volume 9.8 fl (9.2-11.8); Monocytes Absolute Auto 0.73 K/mm3 (0.10-0.90); Monocytes Percent Auto 9.3 % (2.0-11.0); Neutrophils Absolute Auto 5.8 K/mm3 (1.7-7.2); Neutrophils Percent Auto 73.3 % (50.0-70.0); Platelet Count Result 329 K/mm3 (150-420); Red Blood Count 3.85 M/mm3 (4.20-5.40); Red Cell Distribution Width 13.2 % (11.6-14.4); White Blood Count 7.9 K/mm3 (4.8-10.8)
[2023-05-16 12:08] LABS: Alanine Aminotransferase 15 U/L (14-59); Albumin Level 3.7 g/dL (3.4-5.0); Alkaline Phosphatase 54 U/L (46-116); Anion Gap 8 mmol/L (8-16); Aspartate Amino Transferase 26 U/L (15-37); Bilirubin,Total 0.2 mg/dL (0.00-1.00); Blood Urea Nitrogen 21 mg/dL (7-18); Calcium 9.1 mg/dL (8.5-10.1); Carbon Dioxide 25 mmol/L (21-32); Chloride 100 mmol/L (98-108); Estimated Glomerular Filt Rate 34; Glucose 92 mg/dL (70-99); Osmolality Calculated 279 mOsm/kg (285-295); Sodium 133 mmol/L (136-145); Total Protein 6.4 g/dL (6.4-8.2)
== END 2023-05-16 11:24 | disposition home or self-care (01) ==
LOC: CHSLAB 11:25
PROVIDERS: PCP Family Medicine; Visit Provider Family Medicine
DX: N28.9 Disorder of kidney and ureter, unspecified (principal); M25.562 Pain in left knee; M85.88 Other specified disorders of bone density and structure, other site; M76.52 Patellar tendinitis, left knee
CPT/HCPCS: 36415; 73562; 80053; 85025

== ENCOUNTER 2023-05-18 16:20 | Emergency (ER) | payer MEDICARE, SELFPAY ==
--- NOTE | ~2023-05-18 | XR_ITS ---
EXAMINATION: XR chest 1V portable Exam Date/Time: 05/18/2023 21:06 CDT HISTORY: arrythmia Comparison: 05/14/2023. RESULT: Lines, tubes, and devices: None. Lungs and pleura: Clear. Multiple calcified granulomas. Cardiomediastinal silhouette: Stable. Calcified lymph nodes. Other: No acute osseous or upper abdominal finding. IMPRESSION: No acute cardiopulmonary process. Reviewed, dictated and finalized at location K.
[2023-05-18 16:31] VITALS: BP 165/58; PULSE 45; RESP 14; TEMP 37.1; O2SAT 99
--- NOTE | 2023-05-18 16:46 | ECG_ITS ---
Measurements Intervals [place] Rate: 39 P: PA: 0 QRS: -49 QRSD: 129 T: 35 QT: 474 QTc: 382 Interpretive Statements SINUS BRADYCARDIA RIGHT BUNDLE BRANCH BLOCK LEFT ANTERIOR FASCICULAR BLOCK BASELINE ARTIFACT- I, II, III, AVR, AVF, AVF ABNORMAL ECG COMPARED TO ECG 05/14/2023 15:50:27 HEART RATE HAS DECREASED Electronically Signed On 05-18-2023 21:11:44 CDT by Chris Buenrostro D.O.
[2023-05-18 17:10] LABS: Basophils Absolute Auto 0.02 K/mm3 (0.00-0.10); Basophils Percent Auto 0.2 % (0.0-1.0); Eosinophils Absolute Auto 0.03 K/mm3 (0.02-0.50); Eosinophils Percent Auto 0.3 % (1.0-6.0); Hematocrit 32.1 % (35.0-42.0); Hemoglobin 10.7 g/dL (11.7-13.8); Immature Granulocyte Absolute 0.05 K/mm3 (0.00-0.00); Immature Granulocyte Percent A 0.6 % (0.0-0.0); Lymphocytes Absolute Auto 0.84 K/mm3 (1.10-4.50); Lymphocytes Percent Auto 9.6 % (18.0-42.0); Mean Corpuscular HGB Conc 33.3 g/dL (32.0-36.0); Mean Corpuscular Hemoglobin 28.8 pg (27.0-31.0); Mean Corpuscular Volume 86.5 fL (78.0-102.0); Neutrophils Absolute Auto 7.1 K/mm3 (1.7-7.2); Neutrophils Percent Auto 81.3 % (50.0-70.0); Platelet Count Result 320 K/mm3 (150-420); Red Blood Count 3.71 M/mm3 (4.20-5.40); White Blood Count 8.8 K/mm3 (4.8-10.8)
[2023-05-18 17:30] VITALS: BP 149/40; PULSE 42; RESP 20; O2SAT 98
[2023-05-18 17:34] LABS: Alanine Aminotransferase 20 U/L (14-59); Albumin Level 3.5 g/dL (3.4-5.0); Alkaline Phosphatase 49 U/L (46-116); Anion Gap 7 mmol/L (8-16); Aspartate Amino Transferase 18 U/L (15-37); Bilirubin,Total 0.3 mg/dL (0.00-1.00); Blood Urea Nitrogen 21 mg/dL (7-18); Calcium 8.9 mg/dL (8.5-10.1); Carbon Dioxide 24 mmol/L (21-32); Chloride 92 mmol/L (98-108); Estimated Glomerular Filt Rate 34; Glucose 107 mg/dL (70-99); NT Pro B Type Natriuretic Pept 1717 pg/mL (0-450); Osmolality Calculated 259 mOsm/kg (285-295); Sodium 123 mmol/L (136-145); Total Protein 6.4 g/dL (6.4-8.2); Troponin I 16.9 ng/L (0.00-60.4)
[2023-05-18 17:36] LABS: Potassium 6.5 mmol/L (3.5-5.1)
[2023-05-18 17:41] LABS: Thyroid Stimulating Hormone Reflex 0.76 u/IU/mL (0.36-3.74)
--- NOTE | 2023-05-18 17:47 | ED.ARRPALP ---
HPI - Arrhythmia/Palpitations General Chief Complaint: Arrhythmia/Palpitations Stated Complaint: dizziness Time Seen by Provider: 05/18/23 16:46 Source: patient and family Mode of arrival: ambulatory Limitations: dementia History of Present Illness HPI narrative: Patient presents to the emergency room from her primary doctor today secondary to low heart rate. Patient has been noted to have low heart rate in the 40s lately and was admitted to the hospital recently. She is now appearing to have heart rates in the 30s. She also had a fall this morning without any injuries apparently. Patient was just taken off of Aldactone. Onset (ago): day(s) (1) Time: 18:01 Duration: constant Severity: mild Associated symptoms: near-syncope Related Data Home Medications Medication Instructions Recorded Confirmed metformin 1,000 mg tablet 1,000 mg PO DAILY 01/24/23 05/18/23 donepezil 10 mg tablet 10 mg PO DAILY 05/14/23 05/18/23 alendronate 70 mg tablet 70 mg PO WEEKLY 05/18/23 05/18/23 amlodipine 10 mg tablet 10 mg PO DAILY 05/18/23 05/18/23 lisinopril 20 mg tablet 20 mg PO DAILY 05/18/23 05/18/23 magnesium oxide 400 mg (241.3 mg 400 mg PO DAILY 05/18/23 05/18/23 magnesium) tablet Allergies Allergy/AdvReac Type Severity Reaction Status Date / Time No Known Allergies Allergy Verified 05/18/23 16:47 Review of Systems Review of Systems: All systems reviewed & are unremarkable except as noted in HPI and below Constitutional: Constitutional: Denies chills, Denies fatigue and Denies fever(s) Eyes: Eyes: Reports no additional eye complaints, Denies change in vision and Denies photophobia Cardiovascular: Cardiovascular: Denies chest pain, Denies rapid heart rate, Denies radiating jaw, neck or arm pain and Reports slow heart rate Respiratory: Respiratory: Denies chest congestion, Denies cough and Denies dyspnea Gastrointestinal: Gastrointestinal: Denies abdominal pain, Denies bloating and Denies constipation Musculoskeletal: Musculoskeletal: Denies back pain, Denies myalgias and Denies arthralgias Neurologic: Denies confusion, Denies vertigo and Denies dizziness Comments: Dementia baseline [facility] Past Medical History Medical History COPD (chronic obstructive pulmonary disease) Dementia Diabetes mellitus Emphysema lung Hearing decreased HTN (hypertension) Hyponatremia Microcytic anemia Onychomycosis Osteoporosis Rib pain on left side Vitamin B12 deficiency (Unknown) Surgical History Surgical History History of cholecystectomy History of hernia repair Family History Family History Father Old age, dementia Mother Cancer Sibling Breast cancer Son Oral cancer Lung cancer Bladder cancer Social History Social History Smoking packs per day: 1 Smoking cigarettes per day: 20.0 Smoking status: Former smoker Tobacco type: cigarettes Smoking end date: 10/30/92 Additional smoking assessment comments: Quit over 30 years ago Alcohol intake: former Drinks per week: 1 Substance use: never Lack of Transportation: No Lack of Food: Never True Current Housing: I Have Housing Concerned About Future Housing: No Difficulty Paying Gas/Electric Bills: No Difficulty Paying for Meds: No Currently Unemployed: No Education: Grade School Difficulty w/ Childcare or Family Care: No Additional living arrangements comments: . 8 Children. Occupation/Education: retired Spiritual care concerns: No Exam Const: General: alert and confusion; No diaphoretic or ill appearing Nutritional Appearance: well nourished Other: dementia HENMT: Head: no contusions, no hematomas and no lacerations Eyes: Conjunctivae: conjunctivae normal P
[2023-05-18] MEDS: FUROSEMIDE INJ 20 MG/2 ML VIAL IV PUSH (18:09)
[2023-05-18 18:30] VITALS: BP 152/69; PULSE 55; RESP 20; O2SAT 98
--- NOTE | 2023-05-18 19:00 | PC.NURSE ---
Assumed care of pt. Pt ambulatory with assist from family to restroom. [facility]
[2023-05-18] MEDS: ACETAMINOPHEN 325 MG TABLET 650 MG PO (19:20)
[2023-05-18 21:00] VITALS: BP 144/51; PULSE 68; RESP 16
[2023-05-18 21:25] VITALS: PULSE 58; RESP 14
[2023-05-18 21:30] VITALS: PULSE 48; RESP 16
== END 2023-05-18 21:39 | disposition short-term general hospital (02) ==
PROVIDERS: Emergency Provider Emergency Medicine; PCP Family Medicine
DX: I11.0 Hypertensive heart disease with heart failure (principal); I50.9 Heart failure, unspecified; R00.1 Bradycardia, unspecified; E87.5 Hyperkalemia; N17.9 Acute kidney failure, unspecified; D64.9 Anemia, unspecified; E87.1 Hypo-osmolality and hyponatremia; E11.9 Type 2 diabetes mellitus without complications; F03.90 Unspecified dementia, unspecified severity, without behavioral disturbance, psychotic disturbance, mood disturbance, and anxiety; J43.9 Emphysema, unspecified; Z79.84 Long term (current) use of oral hypoglycemic drugs; Z87.891 Personal history of nicotine dependence
CPT/HCPCS: 36415; 71045; 80053; 83880; 84443; 84484; 85025; 93005; 96374; 99285; A9270; J1940

== ENCOUNTER 2023-05-18 22:26 | Inpatient (IN) | payer MEDICARE, SELFPAY ==
--- NOTE | ~2023-05-18 | US_ITS ---
US abdomen complete EXAMINATION: US Abdomen Complete INDICATION: Abdomen pain PROCEDURE: Realtime High Resolution abdomen ultrasound. COMPARISON: No prior studies for comparison FINDINGS: Gallbladder is surgically absent. Common bile duct measures 4.9 mm. Liver echotexture within normal limits without focal mass. Pancreas within normal limits. Pancreatic duct is mildly prominent measuring 2.2 mm. Pancreatic tail is obscured by bowel gas. Spleen is unre markeable. Renal echotexture is within normal limits bilaterally without contour deforming mass or re nal stone. There is moderate left hydronephrosis. Right kidney measures 9.1 cm. Left kidney measures 9.6 cm. Visualized aspects of the aorta and IVC are within normal limits. Portal vein is patent. IMPRESSION: 1: Moderate left hydronephrosis. Reviewed, dictated and finalized at location A.
[2023-05-18 22:32] VITALS: BP 150/96; PULSE 55; RESP 16; TEMP 36.6; O2SAT 98
--- NOTE | 2023-05-18 22:42 | ADMGEN ---
This patient, Myrna Pena, was admitted to IMU Room 201-01at 2220. Patient/family oriented to hospital policies and general routines including ID bracelet, bed and alarms, visiting hours, pain management, procedures, bathroom and other care routines, personal items, smoking policy, room service/diet, and visiting hours. Information on how to activate the Rapid Response Team has been discussed. Patient/Family are encouraged to report perceived risks to care and to ask questions if they do not understand what they are told or what they should do.
--- NOTE | 2023-05-18 22:46 | PM.IMHP ---
H&P: HPI History of Present Illness Date/Time: 05/18/23 22:46 Chief Complaint: Low heart rate Narrative: 87-year-old female with a past medical history of diabetes, hypertension, dementia who presented to the ER at [place] from home a due to bradycardia. The patient had been evaluated and hospitalized overnight on 05/15/2023 for bradycardia and syncope. The patient had had diarrhea and then as syncopal episode as thought that part of her syncope may have been due to dehydration. Her bradycardia was felt to be chronic. She was discharged home. Then the today she had another fall and resulted in a skin tear to her right knee. While her daughter was a nurse was evaluating her her heart rate was down in the 30s. She called the patient's primary care provider to discuss her symptoms and they directed her to come to the ER. Will at ER at [place] the patient was found to have a potassium of 6.5. She received a dose of Tylenol and a dose of Lasix. She was found to have a heart rate as low was 31 (per the daughter's report). She was subsequently transferred to our facility for evaluation by Cardiology. Patient's repeat potassium on arrival to our facility was down to 5.5. Her sodium at the outside hospital was 123. The patient had a sodium as low as 129 on the but had improved up to 135 prior to discharge. The family reports that the patient does drink a lot of fluids and is almost compulsive with how much water that she drinks and how much food that she eats during the day. They report that since her spironolactone was discontinued during her last hospitalization the patient's lower extremities have become slightly more swollen. They he reports he does have a history of benign positional vertigo. When she was laid down flat couple of days ago to get her x-ray she did receive developed some significant vertigo. They report that since she has returned home she has become weaker and has required more assistance with moving about. The patient herself is only alert oriented to self. She seems to be aware that she is in a hospital but cannot name the hospital. She does not know the month or year. The family reports that this is not unusual for her. They report that she has chronic diarrhea. The patient lives at home for [facility]. Her grandson and his girlfriend are going to move in with her soon. Her daughter, grandson and grandson significant other are at bedside and provides most of the history. Her daughter is her healthcare power of finance attorney. Review of Systems Review of Systems: ROS unobtainable: Yes unobtainable due to medical condition (Dementia) [facility] Past Medical History Medical History (Updated 05/20/23 @ 08:00 by Emilia Mccullough DO) CHF (congestive heart failure) COPD (chronic obstructive pulmonary disease) Dementia Diabetes mellitus With most recent A1c of 5.3 Emphysema lung Functional urinary incontinence Hearing decreased HTN (hypertension) Hyponatremia Microcytic anemia Onychomycosis Osteoporosis Urge urinary incontinence Vitamin B12 deficiency (Unknown) Surgical History Surgical History History of cholecystectomy History of hernia repair Family History Family History Father Old age, dementia Mother Cancer Sibling Breast cancer Son Oral cancer Lung cancer Bladder cancer Social History Social History (Updated 05/18/23 @ 22:49 by Emilia Mccullough DO) Social History: Code status: DNR/DNI Smoking packs per day: 1 Smoking cigarettes per day: 20.0 Smoking status: Former smoker Additional smoking assessment comments: Quit over 30 years ago Alcohol intake: former Drinks per week: 1 Substance use: never Lack of Transportation: No Lack of Food: Never True Current Housing: I Have Housing Concerned About Future Housing: No Dif
[2023-05-18 23:19] LABS: Anion Gap 5 mmol/L (8-16); Blood Urea Nitrogen 21 mg/dL (7-17); Calcium 9.8 mg/dL (8.4-10.2); Carbon Dioxide 26 mmol/L (22-30); Chloride 93 mmol/L (98-107); Estimated Glomerular Filt Rate 36; Glucose 110 mg/dL (65-110); Potassium 5.5 mmol/L (3.4-5.0); Sodium 124 mmol/L (137-145)
[2023-05-18 23:20] VITALS: BMI 22.3
[2023-05-18] MEDS: SODIUM ZIRCONIUM CYCLOSILICATE 10 GM POWD.PACK PO (23:56)
[2023-05-18 23:58] LABS: Appearance Urine Clear (Clear); Bilirubin Urine Negative (Negative); Blood Urine Negative (Negative); Color Urine Yellow (Yellow); Glucose Urine UA Negative (Negative); Ketones Urine Negative (Negative); Leukocyte Esterase Ur Negative LEU/UL (Negative); Nitrate Urine Negative (Negative); Protein Urine Negative (Negative); Specific Grav Ur 1.005 (1.001-1.035); Urobilinogen Urine 0.2 mg/dL (<2.0)
[2023-05-18 23:59] LABS: Add Urine Microscopic? NO
[2023-05-19] VITALS (8 sets, daily range): BP systolic 133–176; BP diastolic 43–98; PULSE 59–89; RESP 16–20; TEMP 36.4–37.5; O2SAT 95–100
[2023-05-19 00:42] LABS: Creatinine Urine 8.1 mg/dL
[2023-05-19 00:43] LABS: Sodium Urine Random 61 meq/L
[2023-05-19 07:46] LABS: Sodium 130 mmol/L (137-145)
--- NOTE | 2023-05-19 07:47 | PC.NURSE ---
Paper documentation exists on this patient due to [facility] downtime on 05/19/23 from 0100 to [0700] .
--- NOTE | 2023-05-19 08:54 | PM.IMPN ---
Progress Note: A&P Assessment and Plan (1) Bradycardia: Code(s): R00.1 - Bradycardia, unspecified Status: Inactive (2) Acute hyperkalemia: Code(s): E87.5 - Hyperkalemia Status: Inactive (3) CHF (congestive heart failure): Qualifiers: Heart failure chronicity: unspecified Heart failure type: unspecified Qualified Code(s): I50.9 - Heart failure, unspecified Code(s): I50.9 - Heart failure, unspecified Status: Inactive (4) Acute kidney injury: Code(s): N17.9 - Acute kidney failure, unspecified Status: Acute (5) Acute hyponatremia: Code(s): E87.1 - Hypo-osmolality and hyponatremia Status: Acute (6) Dementia: Qualifiers: Dementia behavioral or psychological symptom: unspecified whether behavioral, psychotic, or mood disturbance or anxiety Dementia severity: severe Dementia type: unspecified type Qualified Code(s): F03.C0 - Unspecified dementia, severe, without behavioral disturbance, psychotic disturbance, mood disturbance, and anxiety Code(s): F03.90 - Unspecified dementia, unspecified severity, without behavioral disturbance, psychotic disturbance, mood disturbance, and anxiety Status: Acute Plan Sinus bradycardia The patient is having bradycardia. This may be resulting in her falling. Bradycardia is likely due to the patient's symptomatic hyperkalemia. hold patient's lisinopril and. Spironolactone was discontinued during her last hospitalization. give 1 dose of Lokelma. Hyperkalemia is corrected Patient had a fall on Monday, and passed out. Need to rule out cardiogenic syncope Cardiology has been consulted. The patient does have acute on chronic hyponatremia. There may be some component of hyponatremia resulting in the patient's generalized weakness and falls. Will check urine sodium and creatinine. Will place patient on normal saline and will monitor serial sodiums. It is unclear at this time whether the patient's hyponatremia is due to psychogenic polydipsia versus dehydration. Patient does have an elevated creatinine compared to some of her more recent values. Given the patient's mucous membranes appear dry and leaning more towards intravascular volume depletion. Will attempt IV fluids and will monitor. If sodium is a are not improving with current management will consider Nephrology consult. Patient does have a history of diabetes and had glucoses up in the 400s in December. However given the patient's current renal function in the fact that she had a low hemoglobin A1c of 5.3% in 2020 patient having slightly higher A1c even slightly uncontrolled A1c of around 8 given her age. stop the metformin and monitor Accu-Cheks a.c. provide low-dose sliding scale insulin with hypoglycemia protocol if needed The patient does have hypertension. Her lisinopril is on hold. Hold norvasc. Because of bradycardia Start hydralazine p.o. Patient has moderate to severe dementia at baseline. Will continue home Aricept. A family members going to stay overnight with the patient. Patient has been admitted as observation status. Subjective Date/time seen: 05/19/23 08:54 Interval history: I saw on exam patient has bedside, patient has a profound dementia, history is taken from patient's family. The patient daughter, patient had of fal on Monday, patient passed out. Patient denies abdomen pain, chest pain, palpitation, patient is walking with assistance Exam Narrative: GENERAL: Pleasant, in no acute distress. Well-nourished. Weight 50.1 kg BMI 22.3 - EYES: EOMI. Anicteric. - HENT: Moist mucous membranes. - LUNGS: Clear to auscultation bilaterally, no wheezing, rhonchi, or rales. - CARDIOVASCULAR: Regular rate and rhythm. No murmur. No JVD. - ABDOMEN: Soft, non-tender and non-distended. No palpable masses. - EXTREMITIES: No edema. Peripheral pulses 2+. Non-tender. - NEUROLOGIC: No focal neurological deficits. CN II-XII
[2023-05-19 10:08] LABS: Basophils Percent Auto 0.3 % (0.2-1.2); Eosinophils Percent Auto 0.3 % (0-4.4); Hemoglobin 10.2 g/dL (12.0-15.0); Immature Granulocyte Absolute 0.02 K/mm3 (0.00-0.031); Immature Granulocyte Percent A 0.3 % (0-0.5); Lymphocytes Percent Auto 10.7 % (18.3-44.2); Mean Corpuscular HGB Conc 31.9 g/dl (32-36); Mean Corpuscular Hemoglobin 28.2 pg (26-34); Mean Corpuscular Volume 88.4 fl (80-100); Mean Platelet Volume 10.6 fl (7.4-10.4); Monocytes Absolute Auto 0.6 K/mm3 (0.1-0.6); Monocytes Percent Auto 9.8 % (2.6-8.5); Neutrophils Absolute Auto 5.1 K/mm3 (1.3-6.7); Neutrophils Percent Auto 78.6 % (45.5-73.1); Platelet Count Result 296 k/mm3 (150-375); Red Blood Count 3.62 M/mm3 (4.2-5.4); Red Cell Distribution Width 13.1 % (11.5-14.5); White Blood Count 6.5 K/mm3 (4.5-10.0)
[2023-05-19] MEDS: DONEPEZIL HCL 10 MG TABLET PO (10:22)
[2023-05-19] MEDS: amLODIPine BESYLATE 5 MG TABLET 10 MG PO (10:22)
[2023-05-19] MEDS: PANTOPRAZOLE 40 MG TABLET PO (10:23)
[2023-05-19] MEDS: MAGNESIUM OXIDE 400 MG TABLET PO (10:23)
[2023-05-19 10:44] LABS: Anion Gap 9 mmol/L (8-16); Blood Urea Nitrogen 19 mg/dL (7-17); Calcium 9.6 mg/dL (8.4-10.2); Carbon Dioxide 23 mmol/L (22-30); Chloride 97 mmol/L (98-107); Estimated Glomerular Filt Rate 47; Glucose 133 mg/dL (65-110); Potassium 4.8 mmol/L (3.4-5.0); Sodium 129 mmol/L (137-145)
[2023-05-19] MEDS: DEXTROSE 5% 1,000 ML 1,000 ML 100 ML IVPB (10:55)
[2023-05-19] MEDS: SODIUM CHLORIDE 0.9% IV 1,000 ML 100 ML IV CONT ×2 (13:21)
[2023-05-19 15:37] LABS: Sodium 126 mmol/L (137-145)
[2023-05-19 16:51] LABS: Glucose Point of Care 174 mg/dl (65-105)
[2023-05-19] MEDS: hydrALAZINE HCL 50 MG TABLET PO (18:33)
[2023-05-19 18:39] LABS: Sodium 130 mmol/L (137-145)
[2023-05-19 20:41] LABS: Glucose Point of Care 200 mg/dl (65-105)
[2023-05-20] VITALS: PULSE 58
[2023-05-20 04:00] VITALS: BP 162/49; PULSE 63; PULSE 75; RESP 16; TEMP 36.6; O2SAT 100
[2023-05-20 05:43] LABS: Basophils Percent Auto 0.5 % (0.2-1.2); Eosinophils Absolute Auto 0.1 K/mm3 (0-0.3); Eosinophils Percent Auto 1.4 % (0-4.4); Hematocrit 34.3 % (37.0-47.0); Hemoglobin 11.2 g/dL (12.0-15.0); Immature Granulocyte Absolute 0.02 K/mm3 (0.00-0.031); Immature Granulocyte Percent A 0.3 % (0-0.5); Lymphocytes Absolute Auto 0.68 K/mm3 (0.9-3.2); Lymphocytes Percent Auto 11.7 % (18.3-44.2); Mean Corpuscular HGB Conc 32.7 g/dl (32-36); Mean Corpuscular Hemoglobin 28.6 pg (26-34); Mean Corpuscular Volume 87.5 fl (80-100); Monocytes Absolute Auto 0.6 K/mm3 (0.1-0.6); Monocytes Percent Auto 10.3 % (2.6-8.5); Neutrophils Absolute Auto 4.4 K/mm3 (1.3-6.7); Neutrophils Percent Auto 75.8 % (45.5-73.1); Platelet Count Result 315 k/mm3 (150-375); Red Blood Count 3.92 M/mm3 (4.2-5.4); Red Cell Distribution Width 13.2 % (11.5-14.5); White Blood Count 5.8 K/mm3 (4.5-10.0)
[2023-05-20 05:49] LABS: Anion Gap 8 mmol/L (8-16); Blood Urea Nitrogen 17 mg/dL (7-17); Carbon Dioxide 22 mmol/L (22-30); Chloride 104 mmol/L (98-107); Estimated Glomerular Filt Rate 60; Glucose 151 mg/dL (65-110); Potassium 4.6 mmol/L (3.4-5.0); Sodium 134 mmol/L (137-145)
--- NOTE | 2023-05-20 07:53 | PM.IMPN ---
Progress Note: A&P Assessment and Plan (1) Bradycardia: Code(s): R00.1 - Bradycardia, unspecified Status: Inactive (2) Acute hyperkalemia: Code(s): E87.5 - Hyperkalemia Status: Inactive (3) CHF (congestive heart failure): Qualifiers: Heart failure chronicity: unspecified Heart failure type: unspecified Qualified Code(s): I50.9 - Heart failure, unspecified Code(s): I50.9 - Heart failure, unspecified Status: Inactive (4) Acute kidney injury: Code(s): N17.9 - Acute kidney failure, unspecified Status: Acute (5) Acute hyponatremia: Code(s): E87.1 - Hypo-osmolality and hyponatremia Status: Acute (6) Dementia: Qualifiers: Dementia behavioral or psychological symptom: unspecified whether behavioral, psychotic, or mood disturbance or anxiety Dementia severity: severe Dementia type: unspecified type Qualified Code(s): F03.C0 - Unspecified dementia, severe, without behavioral disturbance, psychotic disturbance, mood disturbance, and anxiety Code(s): F03.90 - Unspecified dementia, unspecified severity, without behavioral disturbance, psychotic disturbance, mood disturbance, and anxiety Status: Acute Plan Sinus bradycardia The patient is having bradycardia. This may be resulting in her falling. Bradycardia is likely due to the patient's symptomatic hyperkalemia. hold patient's lisinopril and. Spironolactone was discontinued during her last hospitalization. give 1 dose of Lokelma. Hyperkalemia is corrected Patient had a fall on Monday, and passed out. Need to rule out cardiogenic syncope Cardiology has been consulted. Skin Drier considers no further workup, likely resulting from hypokalemia Hyponatremia The patient does have acute on chronic hyponatremia. There may be some component of hyponatremia resulting in the patient's generalized weakness and falls. Will check urine sodium and creatinine. Will place patient on normal saline and will monitor serial sodiums. It is unclear at this time whether the patient's hyponatremia is due to psychogenic polydipsia versus dehydration. Patient does have an elevated creatinine compared to some of her more recent values. Given the patient's mucous membranes appear dry and leaning more towards intravascular volume depletion. Received normal saline Sodium level is improving, sodium 1304 today, discontinue IV fluid diabetes and had glucoses up in the 400s in December. However given the patient's current renal function in the fact that she had a low hemoglobin A1c of 5.3% in 2020 patient having slightly higher A1c even slightly uncontrolled A1c of around 8 given her age. stop the metformin and monitor Accu-Cheks a.c. provide low-dose sliding scale insulin with hypoglycemia protocol if needed Resume home medication at discharge The patient does have hypertension. Her lisinopril is on hold. Hold norvasc. Because of bradycardia Start hydralazine p.o. and resume Norvasc at discharge Abdomen ultrasound shows moderate left hydronephrosis without obstruction Follow-up with primary care doctor in the office Patient has moderate to severe dementia at baseline. Will continue home Aricept. A family members going to stay overnight with the patient. Consult PT OT ocular care technologist for evaluation system placement, patient has profound dementia, difficulty with ambulation Subjective Date/time seen: 05/20/23 07:53 Interval history: I saw on exam patient Patient denies cp dizziness abdomen pain, chest pain, palpitation, Exam Narrative: GENERAL: Pleasant, in no acute distress. Well-nourished. Weight 50.1 kg BMI 22.3 - EYES: EOMI. Anicteric. - HENT: Moist mucous membranes. - LUNGS: Clear to auscultation bilaterally, no wheezing, rhonchi, or rales. - CARDIOVASCULAR: Regular rate and rhythm. No murmur. No JVD. - ABDOMEN: Soft, non-tender and non-distended. No palpable masses. - EXTRE
[2023-05-20 08:00] VITALS: PULSE 64
[2023-05-20 08:47] LABS: Glucose Point of Care 104 mg/dl (65-105)
[2023-05-20 09:33] VITALS: BP 164/80; PULSE 66
[2023-05-20] MEDS: hydrALAZINE HCL 50 MG TABLET PO (09:35)
[2023-05-20] MEDS: PANTOPRAZOLE 40 MG TABLET PO (09:35)
[2023-05-20] MEDS: DONEPEZIL HCL 10 MG TABLET PO (09:35)
[2023-05-20] MEDS: MAGNESIUM OXIDE 400 MG TABLET PO (09:35)
--- NOTE | 2023-05-20 09:57 | PM.CNCAR ---
Assessment and Plan Assessment and plan (1) Acute kidney injury: Code(s): N17.9 - Acute kidney failure, unspecified Status: Acute Assessment and Plan: Related to dehydration. Improved and normalized (2) Syncope: Qualifiers: Syncope type: unspecified Qualified Code(s): R55 - Syncope and collapse Code(s): R55 - Syncope and collapse Status: Acute Assessment and Plan: Likely combination dehydration and bradycardia. Electrolytes were significantly abnormal including significant hyperkalemia. Heart rate has normalized with electrolyte stability (3) HTN (hypertension): Code(s): I10 - Essential (primary) hypertension Status: Chronic Assessment and Plan: At goal for age (4) Hyperkalemia: Code(s): E87.5 - Hyperkalemia Status: Acute (5) Bradycardia: Code(s): R00.1 - Bradycardia, unspecified Status: Inactive Assessment and Plan: Improved with correction of electrolyte imbalance. Plan Regarding hyperkalemia, avoid high potassium diet. Hold lisinopril especially hypokalemia returns. Patient is encouraged to stay hydrated. No further inpatient workup needed at this point. History of Present Illness History of Present Illness Consult date/time: 05/20/23 09:57 Requesting physician: Emilia Mccullough DO Reason For Visit: Symptomatic Bradycardia,Hyperkalemia Narrative: Reason for consultation: Symptomatic bradycardia, Requesting provider: Dr. Mccullough Date of service 05/20/2023 History: Patient 87-year-old female was admitted because The patient had had diarrhea and then as syncopal episode as thought that part of her syncope may have been due to dehydration.? Her bradycardia was felt to be chronic.? She was discharged home.? Then the today she had another fall and resulted in a skin tear to her right knee.? While her daughter was a nurse was evaluating her her heart rate was down in the 30s.? She called the patient's primary care provider to discuss her symptoms and they directed her to come to the ER.? Will at ER at [place] the patient was found to have a potassium of 6.5.? Potassium level has normalized bradycardia has improved. She has significant dementia and denies any chest pain, shortness of breath, paroxysmal nocturnal dyspnea, orthopnea, edema or palpitations. Review of Systems Review of Systems: All systems reviewed & are unremarkable except as noted in HPI and below Constitutional: Constitutional: Denies body ache(s) Eyes: Eyes: Denies blurry vision ENT: Reports Normal hearing present Cardiovascular: Cardiovascular: Denies chest pain Respiratory: Respiratory: Denies dyspnea Gastrointestinal: Gastrointestinal: Denies abdominal pain Genitourinary: Genitourinary: Denies hematuria Musculoskeletal: Musculoskeletal: Denies back pain Integumentary/Breasts: Skin/Breast: Denies dry skin Neurologic: Denies Abnormal speech present Psychiatric: Psychiatric: Reports confusion Endocrine: Endocrine: Denies excessive sweating Hematologic/Lymphatic: Hematologic/Lymphatic: Denies easy bleeding Allergic/Immunologic: Allergic/Immunologic: Denies GI upset with certain foods PMFSH Past Medical History Medical History CHF (congestive heart failure) COPD (chronic obstructive pulmonary disease) Dementia Diabetes mellitus With most recent A1c of 5.3 Emphysema lung Functional urinary incontinence Hearing decreased HTN (hypertension) Hyponatremia Microcytic anemia Onychomycosis Osteoporosis Urge urinary incontinence Vitamin B12 deficiency (Unknown) Surgical History Surgical History History of cholecystectomy History of hernia repair Family History Family History Father Old age, dementia Mother Cancer Sibling Breast ca
[2023-05-20 10:18] VITALS: BP 153/53; PULSE 86; RESP 16; TEMP 36.4; O2SAT 100
--- NOTE | 2023-05-20 11:24 | PM.DS ---
DS: Admitting Diagnosis Discharge Date Today Admitting Diagnosis (1) Acute kidney injury: ?Code(s): N17.9 - Acute kidney failure, unspecified ?Status:?Acute ?Assessment and Plan: Related to dehydration.? Improved and normalized (2) Syncope: ?Qualifiers: ?Syncope type:?unspecified? Qualified Code(s):?R55 - Syncope and collapse ?Code(s): R55 - Syncope and collapse ?Status:?Acute ?Assessment and Plan: Likely combination dehydration and bradycardia.? Electrolytes were significantly abnormal including significant hyperkalemia.? Heart rate has normalized with electrolyte stability (3) HTN (hypertension): ?Code(s): I10 - Essential (primary) hypertension ?Status:?Chronic ?Assessment and Plan: At goal for age (4) Hyperkalemia: ?Code(s): E87.5 - Hyperkalemia ?Status:?Acute (5) Bradycardia: ?Code(s): R00.1 - Bradycardia, unspecified DS: Discharge Diagnosis Discharge Diagnosis (1) Bradycardia: Code(s): R00.1 - Bradycardia, unspecified Status: Inactive (2) Acute hyperkalemia: Code(s): E87.5 - Hyperkalemia Status: Inactive (3) CHF (congestive heart failure): Qualifiers: Heart failure chronicity: unspecified Heart failure type: unspecified Qualified Code(s): I50.9 - Heart failure, unspecified Code(s): I50.9 - Heart failure, unspecified Status: Inactive (4) Acute kidney injury: Code(s): N17.9 - Acute kidney failure, unspecified Status: Acute (5) Acute hyponatremia: Code(s): E87.1 - Hypo-osmolality and hyponatremia Status: Acute (6) Dementia: Qualifiers: Dementia type: unspecified type Dementia severity: severe Dementia behavioral or psychological symptom: unspecified whether behavioral, psychotic, or mood disturbance or anxiety Qualified Code(s): F03.C0 - Unspecified dementia, severe, without behavioral disturbance, psychotic disturbance, mood disturbance, and anxiety Code(s): F03.90 - Unspecified dementia, unspecified severity, without behavioral disturbance, psychotic disturbance, mood disturbance, and anxiety Status: Acute DS: Summary Hospital Course Reason for hospitalization: Diarrhea and syncope Hospital Course: Per H&P, patient 87-year-old female was admitted because The patient had had diarrhea and then as syncopal episode as thought that part of her syncope may have been due to dehydration.? Her bradycardia was felt to be chronic.? She was discharged home.? Then the today she had another fall and resulted in a skin tear to her right knee.? While her daughter was a nurse was evaluating her her heart rate was down in the 30s.? She called the patient's primary care provider to discuss her symptoms and they directed her to come to the ER.? Will at ER at [facility] the patient was found to have a potassium of 6.5.? Potassium level has normalized bradycardia has improved.? She has significant dementia and denies any chest pain, shortness of breath, paroxysmal nocturnal dyspnea, orthopnea, edema or palpitations. During hospitalization, the following medical issues have been addressed in the hospital Sinus bradycardia The patient is having bradycardia. This may be resulting in her falling. Bradycardia is likely due to the patient's symptomatic hyperkalemia. hold patient's lisinopril and. Spironolactone was discontinued during her last hospitalization. give 1 dose of Lokelma. Hyperkalemia is corrected Patient had a fall on Monday, and passed out. Need to rule out cardiogenic syncope Cardiology has been consulted. Assistant News Director considers no further workup, likely resulting from hypokalemia Hyponatremia The patient does have acute on chronic hyponatremia. There may be some component of hyponatremia resulting in the patient's generalized weakness and falls. Will check urine sodium and creatinine. Will place patient on normal saline and will monitor serial sodiums.
[2023-05-20] MEDS: ACETAMINOPHEN 325 MG TABLET 650 MG PO (11:31)
[2023-05-20 12:00] VITALS: PULSE 69
[2023-05-20 12:20] LABS: Glucose Point of Care 189 mg/dl (65-105)
== END 2023-05-20 12:48 | disposition home health service (06) | DRG 641 ==
LOC: ANHIMU 05-19 15:17 → ANH2MED 05-19 17:07
PROVIDERS: Admitting Provider Internal Medicine; PCP Family Medicine; Visit Provider Hospitalist
DX: E87.5 Hyperkalemia (principal); N17.9 Acute kidney failure, unspecified; N13.30 Unspecified hydronephrosis; E87.1 Hypo-osmolality and hyponatremia; R00.1 Bradycardia, unspecified; E86.0 Dehydration; R55 Syncope and collapse; F03.90 Unspecified dementia, unspecified severity, without behavioral disturbance, psychotic disturbance, mood disturbance, and anxiety; I11.0 Hypertensive heart disease with heart failure; I50.9 Heart failure, unspecified; J43.9 Emphysema, unspecified; E11.9 Type 2 diabetes mellitus without complications; M81.0 Age-related osteoporosis without current pathological fracture; Z90.49 Acquired absence of other specified parts of digestive tract
CPT/HCPCS: 36415; 76700; 80048; 81003; 82570; 82948; 84295; 84300; 85025; 96361; 96365; A9270; G0378; J7030; J7070

== ENCOUNTER 2023-05-25 11:42 | Outpatient (CLI) | payer MEDICARE, SELFPAY ==
[2023-05-25 12:00] LABS: Basophils Absolute Auto 0.03 K/mm3 (0.00-0.10); Basophils Percent Auto 0.4 % (0.0-1.0); Eosinophils Absolute Auto 0.09 K/mm3 (0.02-0.50); Eosinophils Percent Auto 1.2 % (1.0-6.0); Hematocrit 34.5 % (35.0-42.0); Immature Granulocyte Absolute 0.04 K/mm3 (0.00-0.00); Immature Granulocyte Percent A 0.5 % (0.0-0.0); Lymphocytes Absolute Auto 0.88 K/mm3 (1.10-4.50); Lymphocytes Percent Auto 11.5 % (18.0-42.0); Mean Corpuscular HGB Conc 31.9 g/dL (32.0-36.0); Mean Platelet Volume 9.4 fl (9.2-11.8); Monocytes Absolute Auto 0.65 K/mm3 (0.10-0.90); Monocytes Percent Auto 8.5 % (2.0-11.0); Neutrophils Absolute Auto 5.9 K/mm3 (1.7-7.2); Neutrophils Percent Auto 77.9 % (50.0-70.0); Platelet Count Result 373 K/mm3 (150-420); Red Blood Count 3.79 M/mm3 (4.20-5.40); Red Cell Distribution Width 13.6 % (11.6-14.4); White Blood Count 7.6 K/mm3 (4.8-10.8)
[2023-05-25 12:34] LABS: Alanine Aminotransferase 13 U/L (14-59); Albumin Level 3.1 g/dL (3.4-5.0); Alkaline Phosphatase 52 U/L (46-116); Anion Gap 8 mmol/L (8-16); Aspartate Amino Transferase < 10 U/L (15-37); Bilirubin,Total 0.3 mg/dL (0.00-1.00); Blood Urea Nitrogen 32 mg/dL (7-18); Calcium 9.4 mg/dL (8.5-10.1); Carbon Dioxide 24 mmol/L (21-32); Chloride 104 mmol/L (98-108); Estimated Glomerular Filt Rate 44; Glucose 131 mg/dL (70-99); Osmolality Calculated 290 mOsm/kg (285-295); Potassium 4.7 mmol/L (3.5-5.1); Sodium 136 mmol/L (136-145); Total Protein 5.9 g/dL (6.4-8.2)
== END 2023-05-25 11:43 | disposition home or self-care (01) ==
LOC: CHSLAB 11:43
PROVIDERS: PCP Family Medicine; Visit Provider Family Medicine
DX: N28.9 Disorder of kidney and ureter, unspecified (principal)
CPT/HCPCS: 36415; 80053; 85025

== ENCOUNTER 2023-06-01 09:46 | Outpatient (NON) | payer MEDICARE, SELFPAY ==
[2023-06-01 10:13] LABS: Hematocrit 32.7 % (35.0-42.0); Hemoglobin 10.2 g/dL (11.7-13.8); Mean Corpuscular HGB Conc 31.2 g/dL (32.0-36.0); Mean Corpuscular Hemoglobin 28.9 pg (27.0-31.0); Mean Corpuscular Volume 92.6 fL (78.0-102.0); Mean Platelet Volume 10.1 fl (9.2-11.8); Platelet Count Result 414 K/mm3 (150-420); Red Blood Count 3.53 M/mm3 (4.20-5.40); Red Cell Distribution Width 13.8 % (11.6-14.4); White Blood Count 7.2 K/mm3 (4.8-10.8)
[2023-06-01 10:35] LABS: Alanine Aminotransferase 14 U/L (14-59); Albumin Level 3.2 g/dL (3.4-5.0); Alkaline Phosphatase 97 U/L (46-116); Anion Gap 7 mmol/L (8-16); Aspartate Amino Transferase 10 U/L (15-37); Bilirubin,Total 0.2 mg/dL (0.00-1.00); Blood Urea Nitrogen 21 mg/dL (7-18); Calcium 9.1 mg/dL (8.5-10.1); Carbon Dioxide 27 mmol/L (21-32); Chloride 106 mmol/L (98-108); Estimated Glomerular Filt Rate 47; Glucose 111 mg/dL (70-99); Osmolality Calculated 294 mOsm/kg (285-295); Potassium 4.3 mmol/L (3.5-5.1); Sodium 140 mmol/L (136-145); Total Protein 6.4 g/dL (6.4-8.2)
== END 2023-06-01 09:47 | disposition home or self-care (01) ==
LOC: CHSHH 09:47
PROVIDERS: Visit Provider Family Medicine
DX: D50.9 Iron deficiency anemia, unspecified (principal); F03.90 Unspecified dementia, unspecified severity, without behavioral disturbance, psychotic disturbance, mood disturbance, and anxiety; N30.00 Acute cystitis without hematuria
CPT/HCPCS: 36415; 80053; 85027

== ENCOUNTER 2023-08-06 14:13 | Emergency (ER) | payer MEDICARE, SELFPAY ==
--- NOTE | ~2023-08-06 | XR_ITS ---
EXAMINATION: XR chest 2V Exam Date/Time: 08/06/2023 14:50 CDT HISTORY: weakness/multiple falls hx copd,former smoker,chf,emphysema Comparison: 05/18/2023. RESULT: Lines, tubes, and devices: None. Lungs and pleura: Senescent and possible emphysematous change. Multiple calcified nodules. Cardiomediastinal silhouette: Stable. Calcified lymph nodes. Other: No acute osseous or upper abdominal finding. IMPRESSION: No acute cardiopulmonary process. Reviewed, dictated and finalized at location K.
--- NOTE | ~2023-08-06 | CT_ITS ---
EXAMINATION: CT brain wo con DATE: 08/06/2023 15:13 INDICATION: weakness, multiple falls hx dementia . TECHNIQUE: Computed tomography (CT) of the head was performed without intravenous contrast. The mA wa s adjusted according to patient size. Iterative reconstruction technique was employed. The dose-lengt h product was 605.33 mGy-cm. COMPARISON: 05/14/2023. FINDINGS: No acute intracranial hemorrhage or extra-axial fluid collection. No hydrocephalus, mass, or herniation. No acute ischemic infarct. Unremarkable dural venous sinus attenuation. No acute osseous abnormality. The aerated spaces are clear. Moderate atrophy and chronic white matter change. Atherosclerotic intracranial calcification. 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 IMPRESSION: No acute intracranial process. Reviewed, dictated and finalized at location K.
[2023-08-06 14:13] VITALS: BP 128/51; PULSE 65; RESP 18; TEMP 36.4; O2SAT 100
--- NOTE | 2023-08-06 14:18 | ECG_ITS ---
Measurements Intervals [place] Rate: 62 P: -36 [place]: 155 QRS: -41 QRSD: 120 T: 26 QT: 409 QTc: 418 Interpretive Statements SINUS RHYTHM LEFT ANTERIOR FASCICULAR BLOCK RIGHT BUNDLE BRANCH BLOCK [120+ ms QRS DURATION, UPRIGHT V1, 40+ ms S IN I/aVL/V4/V5/V6] ABNORMAL ECG COMPARED TO ECG 05/18/2023 16:56:14 NO SIGNIFICANT CHANGE Electronically Signed On 08-07-2023 9:32:09 CDT by Suman Mckeon M.D.
--- NOTE | 2023-08-06 14:31 | ED.WEAKNESS ---
HPI - Weakness General Chief complaint: Weakness Stated complaint: frequent falls Time Seen by Provider: 08/06/23 14:17 Source: patient and family Mode of arrival: ambulatory Limitations: no limitations History of Present Illness HPI Narrative: patient is a 88-year-old female with a controlled fall after being weak today. No injuries. She had a large stool of diarrhea noted prior to the event. She was feeling normal before the event. Complaint: generalized weakness Onset (ago): hour(s) (1) Duration: constant Location: generalized Migration: none Severity: moderate Severity scale (1-10): 4 Relieving factors: none Exacerbating factors: other ( Large watery stool stimulated this weakness) Associated symptoms: denies other symptoms Related Data Home Medications Medication Instructions Recorded Confirmed amlodipine 10 mg tablet 10 mg PO DAILY 05/18/23 08/06/23 lorazepam 1 mg tablet 1 mg PO QHS PRN Sleep 07/06/23 08/06/23 pantoprazole 40 mg tablet,delayed 40 mg PO DAILY 08/06/23 08/06/23 release torsemide 20 mg tablet 20 mg PO DAILY 08/06/23 08/06/23 Allergies Allergy/AdvReac Type Severity Reaction Status Date / Time No Known Allergies Allergy Verified 07/25/23 13:37 Review of Systems Review of Systems: All systems reviewed & are unremarkable except as noted in HPI and below Constitutional: Constitutional: Reports no additional constitutional complaints Eyes: Eyes: Reports no additional eye complaints ENT: Reports system reviewed and no additional complaints, except as documented Cardiovascular: Cardiovascular: Reports no additional cardiovascular complaints Respiratory: Respiratory: Reports no additional respiratory complaints Gastrointestinal: Gastrointestinal: Reports no additional gastrointestinal complaints Genitourinary: Genitourinary: Reports no additional female genitourinary complaints Musculoskeletal: Musculoskeletal: Reports no additional musculoskeletal complaints Integumentary/Breasts: Skin/Breast: Reports system reviewed and no additional complaints, except as docu Neurologic: Reports system reviewed and no additional complaints, except as documented Psychiatric: Psychiatric: Reports no additional psychiatric complaints Endocrine: Endocrine: Reports no additional endocrine complaints Hematologic/Lymphatic: Hematologic/Lymphatic: Reports no additional hematologic/lymphatic complaints Allergic/Immunologic: Allergic/Immunologic: Reports no additional allergic/immunologic complaints PMFSH Past Medical History Medical History CHF (congestive heart failure) COPD (chronic obstructive pulmonary disease) Dementia Diabetes mellitus With most recent A1c of 5.3 Diabetic retinopathy associated with controlled type 2 diabetes mellitus Emphysema lung Functional urinary incontinence Hearing decreased HTN (hypertension) Hyponatremia Microcytic anemia Onychomycosis Osteoporosis Urge urinary incontinence Vitamin B12 deficiency (Unknown) Surgical History Surgical History History of cholecystectomy History of hernia repair Family History Family History Father Old age, dementia Mother Cancer Sibling Breast cancer Son Oral cancer Lung cancer Bladder cancer Social History Social History Social History: Code status: DNR/DNI Smoking packs per day: 1 Smoking cigarettes per day: 20.0 Smoking status: Former smoker Additional smoking assessment comments: Quit over 30 years ago Alcohol intake: former Drinks per week: 1 Substance use: never Lack of Transportation: No Lack of Food: Never True Current Housing: I Have Housing Concerned About Future Housing: No Difficulty Paying Gas/Electric Bills: No Difficu
[2023-08-06 15:00] VITALS: BP 120/51; PULSE 60; RESP 20; O2SAT 98
[2023-08-06 15:10] LABS: Basophils Absolute Auto 0.03 K/mm3 (0.00-0.10); Basophils Percent Auto 0.3 % (0.0-1.0); Eosinophils Absolute Auto 0.25 K/mm3 (0.02-0.50); Eosinophils Percent Auto 2.7 % (1.0-6.0); Hemoglobin 11.8 g/dL (11.7-13.8); Immature Granulocyte Absolute 0.04 K/mm3 (0.00-0.00); Immature Granulocyte Percent A 0.4 % (0.0-0.0); Lymphocytes Absolute Auto 0.64 K/mm3 (1.10-4.50); Mean Corpuscular HGB Conc 31.9 g/dL (32.0-36.0); Mean Corpuscular Hemoglobin 28.9 pg (27.0-31.0); Mean Corpuscular Volume 90.7 fL (78.0-102.0); Mean Platelet Volume 10.3 fl (9.2-11.8); Monocytes Absolute Auto 0.56 K/mm3 (0.10-0.90); Monocytes Percent Auto 6.1 % (2.0-11.0); Neutrophils Absolute Auto 7.7 K/mm3 (1.7-7.2); Neutrophils Percent Auto 83.5 % (50.0-70.0); Platelet Count Result 361 K/mm3 (150-420); Red Blood Count 4.08 M/mm3 (4.20-5.40); Red Cell Distribution Width 12.8 % (11.6-14.4); White Blood Count 9.2 K/mm3 (4.8-10.8)
[2023-08-06 15:20] LABS: Appearance Urine Clear (Clear); Bilirubin Urine Negative (Negative); Blood Urine Negative (Negative); Color Urine Light Yellow (Yellow); Glucose Urine UA Negative (Negative); Ketones Urine Negative (Negative); Leukocyte Esterase Ur Trace LEU/UL (Negative); Nitrate Urine Negative (Negative); Protein Urine Negative (Negative); Urobilinogen Urine 0.2 mg/dL (0.2-1.0)
[2023-08-06 15:32] LABS: Add Urine Microscopic? YES; Bacteria Urine 1+ /hpf; Squamous Epithelial Cell Urine Few /hpf (Few); WBC Urine 0-3 /hpf (0-3)
[2023-08-06 15:34] LABS: Alanine Aminotransferase 8 U/L (14-59); Albumin Level 3.2 g/dL (3.4-5.0); Alkaline Phosphatase 71 U/L (46-116); Anion Gap 9 mmol/L (8-16); Aspartate Amino Transferase 11 U/L (15-37); Bilirubin,Total 0.2 mg/dL (0.00-1.00); Blood Urea Nitrogen 23 mg/dL (7-18); Calcium 9.7 mg/dL (8.5-10.1); Carbon Dioxide 29 mmol/L (21-32); Chloride 99 mmol/L (98-108); Estimated Glomerular Filt Rate 35; Glucose 151 mg/dL (70-99); NT Pro B Type Natriuretic Pept 542 pg/mL (0-450); Osmolality Calculated 290 mOsm/kg (285-295); Potassium 4.3 mmol/L (3.5-5.1); Sodium 137 mmol/L (136-145); Total Protein 6.8 g/dL (6.4-8.2); Troponin I 11.3 ng/L (0.00-60.4)
[2023-08-06 15:42] VITALS: BP 106/52; PULSE 62; RESP 20; O2SAT 99
[2023-08-06] MEDS: SODIUM CHLORIDE 0.9% IV 1,000 ML 999 ML IV CONT (15:47)
[2023-08-06 16:10] VITALS: BP 122/60; PULSE 70; RESP 20; O2SAT 98
[2023-08-06 17:27] VITALS: BP 118/68; PULSE 72; RESP 18; TEMP 36.6; O2SAT 98
--- NOTE | 2023-08-14 12:43 | PC.NURSE ---
FINAL BLOOD CULTURE RESULTS X2: NO GROWTH AFTER 5 DAYS. NO ACTION NEEDED.
== END 2023-08-06 17:28 | disposition home or self-care (01) ==
PROVIDERS: Emergency Provider Emergency Medicine; PCP Family Medicine
DX: E86.0 Dehydration (principal); R53.1 Weakness; W19.XXXA Unspecified fall, initial encounter; R29.6 Repeated falls; I11.0 Hypertensive heart disease with heart failure; I50.9 Heart failure, unspecified; E11.319 Type 2 diabetes mellitus with unspecified diabetic retinopathy without macular edema; J43.9 Emphysema, unspecified; F03.90 Unspecified dementia, unspecified severity, without behavioral disturbance, psychotic disturbance, mood disturbance, and anxiety; M81.0 Age-related osteoporosis without current pathological fracture; E53.8 Deficiency of other specified B group vitamins; Z87.891 Personal history of nicotine dependence
CPT/HCPCS: 36415; 70450; 71046; 80053; 81001; 83605; 83735; 83880; 84484; 85025; 87040; 93005; 96360; 99284; J7030

== ENCOUNTER 2023-08-12 11:10 | Outpatient (CLI) | payer MEDICARE, SELFPAY ==
--- NOTE | ~2023-08-12 | XR_ITS ---
EXAMINATION: XR abdomen/kub 1V DATE: 08/12/2023 11:45 INDICATION: Constipation. TECHNIQUE: A supine view of the abdomen on 2 radiographs was obtained. COMPARISON: Abdomen radiographs 02/15/2021 FINDINGS: There are no dilated loops of bowel. There is a small volume of stool in the colon. There i s a surgical clip in right abdomen. IMPRESSION: 1. Nonobstructive bowel gas pattern. Reviewed, dictated and finalized at location A.
[2023-08-12 11:28] LABS: Basophils Absolute Auto 0.04 K/mm3 (0.00-0.10); Basophils Percent Auto 0.6 % (0.0-1.0); Eosinophils Absolute Auto 0.36 K/mm3 (0.02-0.50); Eosinophils Percent Auto 5.2 % (1.0-6.0); Hematocrit 33.7 % (35.0-42.0); Hemoglobin 10.8 g/dL (11.7-13.8); Immature Granulocyte Absolute 0.02 K/mm3 (0.00-0.00); Immature Granulocyte Percent A 0.3 % (0.0-0.0); Lymphocytes Absolute Auto 1.05 K/mm3 (1.10-4.50); Lymphocytes Percent Auto 15.1 % (18.0-42.0); Mean Corpuscular Hemoglobin 28.8 pg (27.0-31.0); Mean Corpuscular Volume 89.9 fL (78.0-102.0); Mean Platelet Volume 9.8 fl (9.2-11.8); Monocytes Absolute Auto 0.59 K/mm3 (0.10-0.90); Monocytes Percent Auto 8.5 % (2.0-11.0); Neutrophils Absolute Auto 4.9 K/mm3 (1.7-7.2); Neutrophils Percent Auto 70.3 % (50.0-70.0); Platelet Count Result 346 K/mm3 (150-420); Red Blood Count 3.75 M/mm3 (4.20-5.40); Red Cell Distribution Width 12.7 % (11.6-14.4)
[2023-08-12 12:05] LABS: Alanine Aminotransferase 7 U/L (14-59); Albumin Level 3.1 g/dL (3.4-5.0); Alkaline Phosphatase 75 U/L (46-116); Anion Gap 6 mmol/L (8-16); Aspartate Amino Transferase < 10 U/L (15-37); Bilirubin,Total 0.3 mg/dL (0.00-1.00); Blood Urea Nitrogen 21 mg/dL (7-18); Calcium 9.3 mg/dL (8.5-10.1); Carbon Dioxide 31 mmol/L (21-32); Chloride 101 mmol/L (98-108); Estimated Glomerular Filt Rate 35; Glucose 155 mg/dL (70-99); Osmolality Calculated 292 mOsm/kg (285-295); Sodium 138 mmol/L (136-145); Total Protein 5.9 g/dL (6.4-8.2)
== END 2023-08-12 11:11 | disposition home or self-care (01) ==
LOC: CHSLAB 11:11
PROVIDERS: PCP Family Medicine; Visit Provider Family Medicine
DX: N17.9 Acute kidney failure, unspecified (principal); K59.00 Constipation, unspecified
CPT/HCPCS: 36415; 74018; 80053; 85025

== ENCOUNTER 2023-12-02 14:04 | Emergency (ER) | payer MEDICARE, SELFPAY ==
--- NOTE | ~2023-12-02 | CT_ITS ---
EXAMINATION: CT brain wo con DATE: 12/02/2023 15:14 INDICATION: head injury, fall today laceration to back of head . TECHNIQUE: Computed tomography (CT) of the head was performed without intravenous contrast. The mA wa s adjusted according to patient size. Iterative reconstruction technique was employed. The dose-lengt h product was 1210.67 mGy-cm. COMPARISON: 08/06/2023. FINDINGS: No acute intracranial hemorrhage or extra-axial fluid collection. No hydrocephalus, mass, or herniation. No acute ischemic infarct. Unremarkable dural venous sinus attenuation. No acute osseous abnormality. Small right occipital contusion/laceration. Left inferior frontal ethmoid and right maxillary mucosal thickening, the remaining aerated spaces ar e clear. Moderate atrophy and chronic white matter change. Atherosclerotic intracranial calcification. Focal o ld right cerebellar infarct. IMPRESSION: No acute intracranial process. Reviewed, dictated and finalized at location K. LE MILL OPERATOR
--- NOTE | ~2023-12-02 | CT_ITS ---
EXAMINATION: CT cervical spine wo con DATE: 12/02/2023 15:14 INDICATION: fall today generalized aches TECHNIQUE: Computed tomography (CT) of the cervical spine was performed without intravenous contrast. Automated exposure control and iterative reconstruction technique were employed. The dose-length pro duct was 118.71 mGy-cm. COMPARISON: 05/14/2023. FINDINGS: Vertebral Body Alignment: Intact. Craniocervical and atlantoaxial alignment: Mild degenerative change. Alignment intact. Osseous structures/fracture: No evidence of a lytic or blastic process in the visualized spine. No e vidence of acute fracture. Air-fluid levels in the sphenoid sinuses. Cervical soft tissues: The paraspinal soft tissues planes are maintained. 1.3 cm left thyroid nodule which requires no additional evaluation at this time. Emphysematous changes in the lungs Degenerative changes: Degenerative changes, without severe neural foraminal or central canal narrowin g. IMPRESSION: No acute fracture or traumatic malalignment in the cervical spine. Sphenoid sinus findings may represent acute sinusitis in the appropriate clinical context. Reviewed, dictated and finalized at location K. INTEGRATION ENGINEER IMPRESSION: No acute fracture or traumatic malalignment in the cervical spine. Sphenoid sinus findings may represent acute sinusitis in the appropriate clinic al context.
--- NOTE | ~2023-12-02 | XR_ITS ---
EXAMINATION: XR chest 1V Exam Date/Time: 12/02/2023 15:00 RACK PUSHER HISTORY: fall today generalized aches hx emphysema/copd/dementia Comparison: 08/06/2023. RESULT: Lines, tubes, and devices: Cholecystectomy clips. Lungs and pleura: Clear. Senescent change. Granulomatous calcifications. Cardiomediastinal silhouette: Stable. Calcified lymph nodes. Other: No acute osseous or upper abdominal finding. IMPRESSION: No acute cardiopulmonary process. Reviewed, dictated and finalized at location K. PUSHER
--- NOTE | ~2023-12-02 | XR_ITS ---
EXAM: XR pelvis 1-2V DATE: 12/02/2023 15:15 HISTORY: fall today out of wheelchair . COMPARISON: 05/14/2023. FINDINGS: Decreased mineralization. No fracture or dislocation. No lytic or blastic lesion. Lumbar d egenerative disc disease. Mild bilateral hip osteoarthritis. Moderate osteitis pubis. No erosion or p eriosteal change. Soft tissues within normal limits. IMPRESSION: No acute osseous finding in the pelvis. Reviewed, dictated and finalized at location K. NEER TECHNICIAN
[2023-12-02 14:16] VITALS: BP 149/92; PULSE 71; RESP 16; TEMP 36.2; O2SAT 97
--- NOTE | 2023-12-02 14:18 | ED.HEATRA ---
HPI - Head Injury General Chief complaint: Head Injury Stated complaint: head injury Time Seen by Provider: 12/02/23 14:17 Source: patient Mode of arrival: wheelchair History of Present Illness HPI Narrative: 82-year-old Alzheimer's dementia,, diabetes mellitus, CKD, chronic anemia was was discharged from [facility] on 11/28/2022 after she was admitted for an accidental fall with fracture of the left radius ulna, fracture of right distal radius and a retroperitoneal mass with hydronephrosis. The patient was at the correction sitting on wheelchair when she slid out of the chair and -- fell on her buttock. -- Hit her occiput on the edge of the wheelchair and sustained a 1 cm superficial laceration. no loss of consciousness. No other injury sustained MD Complaint: head injury and fall Onset (ago): minute(s) ( 20 minutes ago) Arrival Conditions: C-spine immobilization present Mechanism of Injury: unsure Place: other ( correction) Loss of Consciousness: unsure Location of injury: occipital Associated symptoms: denies other symptoms Related Data Home Medications Medication Instructions Recorded Confirmed amlodipine 10 mg tablet 10 mg PO DAILY 05/18/23 12/02/23 Allergies Allergy/AdvReac Type Severity Reaction Status Date / Time No Known Allergies Allergy Verified 12/02/23 16:01 Review of Systems Review of Systems: patient has Alzheimer's disease and is unable to provide adequate history. ROS unobtainable: Yes unobtainable due to mental status Constitutional: Constitutional: Reports as per HPI and Reports no additional constitutional complaints Eyes: Eyes: Reports as per HPI and Reports no additional eye complaints ENT: Reports system reviewed and no additional complaints, except as documented Cardiovascular: Cardiovascular: Reports as per HPI and Reports no additional cardiovascular complaints Respiratory: Respiratory: Reports as per HPI and Reports no additional respiratory complaints Gastrointestinal: Gastrointestinal: Reports as per HPI and Reports no additional gastrointestinal complaints Musculoskeletal: Musculoskeletal: Reports no additional musculoskeletal complaints and Reports as per HPI Integumentary/Breasts: Comments: 1 cm superficial scalp hematoma on the occiput Neurologic: Reports system reviewed and no additional complaints, except as documented and Reports as per HPI PMFSH Past Medical History Medical History CHF (congestive heart failure) COPD (chronic obstructive pulmonary disease) Dementia Diabetes mellitus With most recent A1c of 5.3 Diabetic retinopathy associated with controlled type 2 diabetes mellitus Emphysema lung Functional urinary incontinence Hearing decreased HTN (hypertension) Hyponatremia Microcytic anemia Onychomycosis Osteoporosis Urge urinary incontinence Vitamin B12 deficiency (Unknown) Surgical History Surgical History History of cholecystectomy History of hernia repair Family History Family History Father Old age, dementia Mother Cancer Sibling Breast cancer Son Oral cancer Lung cancer Bladder cancer Social History Social History Social History: Code status: DNR/DNI Smoking packs per day: 1 Smoking cigarettes per day: 20.0 Smoking status: Former smoker Additional smoking assessment comments: Quit over 30 years ago Alcohol intake: former Drinks per week: 1 Substance use: never Lack of Transportation: No Lack of Food: Never True Current Housing: I Have Housing Concerned About Future Housing: No Difficulty Paying Gas/Electric Bills: No Difficulty Paying for Meds: No Currently Unemployed: No Education: Grade School Diff
--- NOTE | 2023-12-02 14:45 | PC.NURSE ---
Patient down in Ct.
--- NOTE | 2023-12-02 15:00 | PC.NURSE ---
PATIENT UNABLE TO TOLERATE SERIAL BLOOD PRESSURES DUE TO BILATERAL BROKE ARMS FROM RECENT FALL. ERP IS AWARE AND STATES PATIENT CAN BE OFF MONITOR.
--- NOTE | 2023-12-02 16:40 | PC.NURSE ---
C-collar removed by ERP
[2023-12-02 16:46] VITALS: BP 159/60; PULSE 86; RESP 20; O2SAT 97
--- NOTE | 2023-12-02 17:05 | PC.NURSE ---
On 12/02/23, the student, JENNIFER AVLAREZ, provided care and completed [facility] documentation on this patient. I have reviewed the student's documentation and agree with the findings.
[2023-12-02 17:10] VITALS: BP 159/60; PULSE 86; RESP 20; TEMP 36.2; O2SAT 97
== END 2023-12-02 17:10 ==
PROVIDERS: Emergency Provider Internal Medicine Critical Care Medicine; PCP Family Medicine
DX: S01.01XA Laceration without foreign body of scalp, initial encounter (principal); I13.0 Hypertensive heart and chronic kidney disease with heart failure and stage 1 through stage 4 chronic kidney disease, or unspecified chronic kidney disease; I50.9 Heart failure, unspecified; N18.9 Chronic kidney disease, unspecified; E11.22 Type 2 diabetes mellitus with diabetic chronic kidney disease; J43.9 Emphysema, unspecified; F03.90 Unspecified dementia, unspecified severity, without behavioral disturbance, psychotic disturbance, mood disturbance, and anxiety; Z87.891 Personal history of nicotine dependence; W05.0XXA Fall from non-moving wheelchair, initial encounter; Y92.129 Unspecified place in nursing home as the place of occurrence of the external cause
CPT/HCPCS: 70450; 71045; 72125; 72170; 99284

== ENCOUNTER 2024-03-21 17:08 | Inpatient (IN) | payer MEDICARE, SELFPAY ==
--- NOTE | ~2024-03-21 | CT_ITS ---
EXAMINATION: CT abdomen pelvis wo con DATE: 03/21/2024 18:25 INDICATION: Abdominal pain TECHNIQUE: Computed tomography (CT) of the abdomen and pelvis was performed without intravenous contr ast. Automated exposure control and iterative reconstruction technique were employed. The dose-length product was 312.38 mGy-cm. COMPARISON: None FINDINGS: Calcified nodule at the right lung base along with a few scattered hepatic and splenic calcific lesio ns all consistent with old granulomatous disease. Heart size is normal. Atherosclerotic coronary jose ry calcific lesion. No pericardial or pleural effusion. Gallbladder is not visualized likely surgical ly absent. Approximately 2 cm ill-defined hypodense lesion in the left hepatic lobe. Right adrenal gl and is normal. There is mild right-sided and moderate left-sided hydronephrosis without evident urolithiasis. The de nsity of urine in the left renal collecting system appears higher than in the right renal collecting system or bladder which suggests possibility of either hemorrhage or infection. There is prominent le ft perinephric stranding versus infiltrating soft tissue in the anterior left pararenal space which e xtends to partially obscure the left adrenal gland and tail of the pancreas. This also extends caudal ly along the left ureter into the pelvis. Bladder is distended. Uterus appears larger than expected f or age. The region of the left ovary is obscured by the previous noted retroperitoneal stranding carson g the left ureter. There appears to be some wall thickening and stranding along portions of the sigmo id colon. There are few diverticula along the sigmoid colon but without localized more prominent surr ounding from trace stranding to suggest diverticulitis. No dilated bowel to suggest obstruction. No f ree intraperitoneal gas or fluid. No evident pathologically enlarged abdominal or pelvic lymphadenopa thy although evaluation is somewhat limited in the absence of intravenous contrast. Within the region s of stranding. T10 and L1 hemangioma with typical thickened vertical trabecula within the lucent reg ions. Couple subtle sclerotic regions within the L2 vertebral body. IMPRESSION: 1. Mild right-sided and moderate left-sided hydronephrosis with dense inflammatory stranding versus i nfiltrating soft tissue along the left pararenal space extending to the margins of the adrenal gland and pancreas and gallbladder along the left ureter. It is unclear whether this represents inflammatio n secondary to urinary tract infection and possible pyelonephritis given the increased density of the fluid in the left renal collecting system versus alternatively malignancy with secondary obstruction at the level of the ureteropelvic junction. Potential etiologies for malignancy would include the ki dneys, pancreas, left ovary, sigmoid colon or lymphoma. Correlate with urinalysis and would recommend urologic consultation. 2. There is wall thickening and stranding about the sigmoid colon suspicious for colitis which could be infectious, inflammatory or ischemic in etiology. Malignancy considered less likely but would cons ider colonoscopy for further evaluation when clinically appropriate. 3. Uterus appears larger than expected for age. 4. Ill-defined approximately 2 cm hypodense lesion in the left hepatic lobe which could represent a n eoplasm either benign or malignant including metastatic disease. Would recommend further evaluation w ith pre and postcontrast MRI or CT. Reviewed, dictated and finalized at location A. IMPRESSION: 1. Mild right-sided and moderate left-sided hydronephrosis with dense inflammat ory stranding versus infiltrating soft tissue along the left pararenal space ex tending to the margins of the adrenal gland and pancreas and gallbladder along the left
[2024-03-21 17:08] VITALS: BP 153/56; PULSE 87; RESP 20; TEMP 36.8; O2SAT 97
[2024-03-21] MEDS: ONDANSETRON INJ 4 MG/2 ML VIAL IV PUSH (17:52)
[2024-03-21] MEDS: PANTOPRAZOLE SODIUM IV 40 MG VIAL 80 MG IV PUSH (17:52)
[2024-03-21] MEDS: SODIUM CHLORIDE 0.9% IV 1,000 ML 999 ML IV CONT (17:52)
[2024-03-21 17:54] LABS: Basophils Absolute Auto 0.02 K/mm3 (0.00-0.10); Basophils Percent Auto 0.1 % (0.0-1.0); Hemoglobin 10.7 g/dL (11.7-13.8); Immature Granulocyte Absolute 0.07 K/mm3 (0.00-0.00); Immature Granulocyte Percent A 0.4 % (0.0-0.0); Lymphocytes Absolute Auto 0.45 K/mm3 (1.10-4.50); Lymphocytes Percent Auto 2.8 % (18.0-42.0); Mean Corpuscular HGB Conc 30.6 g/dL (32-36); Mean Corpuscular Hemoglobin 25.4 pg (27.0-31.0); Mean Corpuscular Volume 82.9 fL (78.0-102.0); Mean Platelet Volume 10.6 fl (9.2-11.8); Monocytes Percent Auto 5.5 % (2.0-11.0); Neutrophils Absolute Auto 14.88 K/mm3 (1.70-7.20); Neutrophils Percent Auto 91.2 % (50.0-70.0); Platelet Count Result 444 K/mm3 (150-420); Red Blood Count 4.22 M/mm3 (4.20-5.40); Red Cell Distribution Width 13.2 % (11.6-14.4); White Blood Count 16.3 K/mm3 (4.8-10.8)
[2024-03-21 18:00] LABS: Occult Blood Positive (Negative)
[2024-03-21 18:08] LABS: Partial Thromboplastin Time 26.5 Sec (23.9-30.70); Prothrombin Time 10.8 Seconds (9.50-12.1)
[2024-03-21 18:11] LABS: Alanine Aminotransferase 14 U/L (14-59); Albumin Level 3.2 g/dL (3.4-5.0); Alkaline Phosphatase 102 U/L (46-116); Ammonia < 10 umol/L (11-32); Anion Gap 11 mmol/L (4-12); Aspartate Amino Transferase 15 U/L (15-37); Bilirubin,Total 0.3 mg/dL (0.00-1.00); Blood Urea Nitrogen 62 mg/dL (7-18); Calcium 9.8 mg/dL (8.5-10.1); Carbon Dioxide 27 mmol/L (21-32); Chloride 96 mmol/L (98-108); Estimated Glomerular Filt Rate 22; Glucose 220 mg/dL (70-99); Lipase 71 U/L (16-77); Osmolality Calculated 302 mOsm/kg (285-295); Potassium 4.1 mmol/L (3.5-5.1); Sodium 134 mmol/L (136-145); Total Protein 7.1 g/dL (6.4-8.2)
[2024-03-21 18:13] LABS: Lactic Acid Reflex 1.5 mmol/L (0.4-2.0)
--- NOTE | 2024-03-21 18:55 | PC.NURSE ---
assumed care. report received from Yong CARDONA
--- NOTE | 2024-03-21 19:06 | PC.NURSE ---
report to hanh ta. all questions answered,
--- NOTE | 2024-03-21 19:34 | PC.NURSE ---
patient up to the bedside commode trying to give urine sample.
--- NOTE | 2024-03-21 20:00 | PC.NURSE ---
family member up to the desk, states my mom has to go poop . alexandr Laureano, went down to the room
--- NOTE | 2024-03-21 20:11 | ED.GENADULT ---
HPI - General Adult General Chief complaint: GI Bleed Stated complaint: rectal bleeding /blood in stool Source: patient and family Mode of arrival: wheelchair Limitations: no limitations History of Present Illness HPI narrative: This is a 88-year-old female [facility] with some bright red blood per rectum with abdominal pain has been having some nausea. [facility] staff was concerned about her abdominal pain patient with no flank pain no dysuria no fever chills patient is a DNR and has a history of dementia COPD and history of CHF. Onset (ago): hour(s) Severity: moderate Related Data Home Medications Medication Instructions Recorded Confirmed amlodipine 10 mg tablet 10 mg PO DAILY 05/18/23 03/21/24 torsemide 20 mg tablet 20 mg PO QAM 12/13/23 03/21/24 Calcium Complete 1,200 mg PO DAILY 03/21/24 03/21/24 albuterol sulfate 90 inhalation Q4-6H PRN Dyspnea 03/21/24 senna See Rx Instructions .Route .COMPLEX 03/21/24 03/21/24 Allergies Allergy/AdvReac Type Severity Reaction Status Date / Time No Known Allergies Allergy Verified 01/31/24 07:42 Review of Systems Review of Systems: All systems reviewed & are unremarkable except as noted in HPI and below PMFSH Past Medical History Medical History CHF (congestive heart failure) COPD (chronic obstructive pulmonary disease) Dementia Diabetes mellitus With most recent A1c of 5.3 Diabetic retinopathy associated with controlled type 2 diabetes mellitus Emphysema lung Functional urinary incontinence Hearing decreased HTN (hypertension) Hyponatremia Microcytic anemia Onychomycosis Osteoporosis Urge urinary incontinence Vitamin B12 deficiency (Unknown) Surgical History Surgical History History of cholecystectomy History of hernia repair Family History Family History Father Old age, dementia Mother Cancer Sibling Breast cancer Son Oral cancer Lung cancer Bladder cancer Social History Social History Social History: Code status: DNR/DNI Smoking packs per day: 1 Smoking cigarettes per day: 20.0 Smoking status: Former smoker Additional smoking assessment comments: Quit over 30 years ago Alcohol intake: former Drinks per week: 1 Substance use: never Lack of Transportation: No Lack of Food: Never True Current Housing: I Have Housing Concerned About Future Housing: No Difficulty Paying Gas/Electric Bills: No Difficulty Paying for Meds: No Currently Unemployed: No Education: Grade School Difficulty w/ Childcare or Family Care: No Additional living arrangements comments: . 8 Children. Occupation/Education: retired Spiritual care concerns: No Exam Const: General: no acute distress Nutritional Appearance: well nourished Limitations: behavioral limitations HENMT: Head: normal to inspection Eyes: Conjunctivae: conjunctivae normal Neck: Neck: normal visual inspection Chest: Chest palpation & inspection: normal inspection of the chest Resp: Effort & Inspection: normal respiratory effort Auscultation: clear to auscultation bilaterally Cardio: Rate: regular rate Rhythm: regular rhythm GI: GI Palp: Yes Soft to palpation Auscultation: normal bowel sounds Rectal Exam: normal sphincter tone, heme positive stool and hemorrhoids : General: Yes bladder normal to palpation Back/Spine/Pelvis: Back: no CVA tenderness Skin: General skin exam: normal color Rashes: no rashes Neuro: General: moves all extremities Speech: normal speech Extrem: General: normal to inspection and no clubbing, cyanosis or edema Course Course Emergency Course: Patient received pain medication and reassessment of her pain has improved along
[2024-03-21 20:20] VITALS: PULSE 92; RESP 16; O2SAT 92
--- NOTE | 2024-03-21 20:40 | PC.NURSE ---
family members notified of room assignment, 206
--- NOTE | 2024-03-21 20:50 | PC.NURSE ---
antibiotics infusing to the floor
[2024-03-21 20:56] VITALS: BP 143/50; PULSE 87; RESP 18; O2SAT 96
[2024-03-21 21:06] LABS: Appearance Urine Clear (Clear); Bilirubin Urine Negative (Negative); Blood Urine 1+ (Negative); Color Urine Light Yellow (Yellow); Glucose Urine UA Negative (Negative); Ketones Urine Negative (Negative); Leukocyte Esterase Ur 1+ LEU/UL (Negative); Nitrate Urine Negative (Negative); Protein Urine Negative (Negative); Urobilinogen Urine 0.2 mg/dL (0.2-1.0); pH Urine 5.5 (5.0-8.0)
[2024-03-21 21:13] VITALS: BMI 24.1
[2024-03-21 21:18] LABS: Add Urine Microscopic? YES; Bacteria Urine 3+ /hpf; Squamous Epithelial Cell Urine Occasional /hpf (Few); WBC Urine 21-30 /hpf (0-3)
[2024-03-21 21:19] VITALS: BP 148/63; PULSE 92; RESP 16; TEMP 36.4; O2SAT 92
[2024-03-21 22:00] VITALS: BP 148/63; PULSE 92; RESP 16; TEMP 36.4; O2SAT 92
[2024-03-21] MEDS: ACETAMINOPHEN 325 MG TABLET 650 MG PO (22:06)
[2024-03-21] MEDS: SODIUM CHLORIDE 0.9% IV 1,000 ML 100 ML IV CONT (22:07)
[2024-03-22] VITALS: BP 144/70; PULSE 90; RESP 16; TEMP 36.7; O2SAT 93
[2024-03-22 05:38] LABS: Basophils Absolute Auto 0.03 K/mm3 (0.00-0.10); Basophils Percent Auto 0.3 % (0.0-1.0); Eosinophils Absolute Auto 0.02 K/mm3 (0.02-0.50); Eosinophils Percent Auto 0.2 % (1.0-6.0); Hematocrit 32.6 % (35.0-42.0); Hemoglobin 10.1 g/dL (11.7-13.8); Immature Granulocyte Absolute 0.04 K/mm3 (0.00-0.00); Immature Granulocyte Percent A 0.4 % (0.0-0.0); Lymphocytes Absolute Auto 0.81 K/mm3 (1.10-4.50); Lymphocytes Percent Auto 8.7 % (18.0-42.0); Mean Corpuscular Hemoglobin 26.1 pg (27.0-31.0); Mean Corpuscular Volume 84.2 fL (78.0-102.0); Mean Platelet Volume 10.8 fl (9.2-11.8); Monocytes Absolute Auto 0.83 K/mm3 (0.10-0.90); Monocytes Percent Auto 8.9 % (2.0-11.0); Neutrophils Absolute Auto 7.63 K/mm3 (1.70-7.20); Neutrophils Percent Auto 81.5 % (50.0-70.0); Platelet Count Result 361 K/mm3 (150-420); Red Blood Count 3.87 M/mm3 (4.20-5.40); Red Cell Distribution Width 13.2 % (11.6-14.4); White Blood Count 9.4 K/mm3 (4.8-10.8)
[2024-03-22 05:53] LABS: Alanine Aminotransferase 12 U/L (14-59); Albumin Level 2.7 g/dL (3.4-5.0); Alkaline Phosphatase 91 U/L (46-116); Anion Gap 7 mmol/L (4-12); Aspartate Amino Transferase 13 U/L (15-37); Bilirubin,Total 0.4 mg/dL (0.00-1.00); Blood Urea Nitrogen 48 mg/dL (7-18); Carbon Dioxide 29 mmol/L (21-32); Chloride 103 mmol/L (98-108); Estimated Glomerular Filt Rate 27; Glucose 146 mg/dL (70-99); Osmolality Calculated 303 mOsm/kg (285-295); Potassium 4.1 mmol/L (3.5-5.1); Sodium 139 mmol/L (136-145); Total Protein 6.2 g/dL (6.4-8.2)
--- NOTE | 2024-03-22 07:20 | PM.IMHP ---
H&P: HPI History of Present Illness Date/Time: 03/22/24 07:20 Chief Complaint: Abdominal pain Narrative: This is an 88-year-old female patient resident of nursing facility presented to the ER with abdominal pain and bright red blood per rectum. ER workup concerning urinary tract infection with imaging findings concerning for acute pyelonephritis as well as hydronephrosis. Rectal exam in the yielded positive occult blood with discovery of internal hemorrhoids as likely source. CT abdomen pelvis showed bilateral hydronephrosis as well as soft tissue mass on the left encompassing portions of the adrenal gland pancreas gallbladder that has been known for a while. It appears this may be causing left-sided hydronephrosis. Prior CT scan from October also indicated pyelonephritis on the left. At this time family is not wanting to pursue invasive testing. Patient has a history of Alzheimer's and is a DNR. There is consideration of possible hospice but we will treat UTI and colitis with IV Zosyn for now. Review of Systems Review of Systems: Patient denies any complaints, history of Alzheimer's All systems reviewed & are unremarkable except as noted in HPI and below PMFSH Past Medical History Medical History CHF (congestive heart failure) COPD (chronic obstructive pulmonary disease) Dementia Diabetes mellitus With most recent A1c of 5.3 Diabetic retinopathy associated with controlled type 2 diabetes mellitus Emphysema lung Functional urinary incontinence Hearing decreased HTN (hypertension) Hyponatremia Microcytic anemia Onychomycosis Osteoporosis Urge urinary incontinence Vitamin B12 deficiency (Unknown) Surgical History Surgical History History of cholecystectomy History of hernia repair Family History Family History Father Old age, dementia Mother Cancer Sibling Breast cancer Son Oral cancer Lung cancer Bladder cancer Social History Social History Social History: Code status: DNR/DNI Smoking packs per day: 1 Smoking cigarettes per day: 20.0 Smoking status: Former smoker Smoking end date: 10/30/82 Additional smoking assessment comments: Quit over 30 years ago Alcohol intake: former Drinks per week: 1 Substance use: never Lack of Transportation: No Lack of Food: Never True Current Housing: I Have Housing Concerned About Future Housing: No Difficulty Paying Gas/Electric Bills: No Difficulty Paying for Meds: No Currently Unemployed: No Education: Grade School Difficulty w/ Childcare or Family Care: No Additional living arrangements comments: . 8 Children. Occupation/Education: retired Spiritual care concerns: No Meds Home Medications and Allergies Home Medications Medication Instructions Recorded Confirmed Type amlodipine 10 mg tablet 10 mg PO DAILY 05/18/23 03/21/24 History pantoprazole 40 mg tablet,delayed 40 mg PO DAILY #90 tabs 08/29/23 03/21/24 Rx release lorazepam 0.5 mg tablet (Ativan) 0.5 mg PO DAILY PRN agitation #30 11/30/23 03/21/24 Rx tabs cholecalciferol (vitamin D3) 25 25 mcg PO DAILY #90 caps 12/05/23 03/21/24 Rx mcg (1,000 unit) capsule torsemide 20 mg tablet 20 mg PO QAM 12/13/23 03/21/24 History benzonatate 200 mg capsule 200 mg PO BID PRN cough #30 caps 02/16/24 03/21/24 Rx All Day Calcium 1,200 mg PO DAILY 03/21/24 03/21/24 History acetaminophen 500 mg tablet 1,000 mg PO TID PRN Fever Or Pain 03/21/24 03/21/24 History (Acetaminophen Extra Strength) albuterol sulfate 90 mcg/actuation 2 puff inhalation Q6H PRN 03/21/24 03/21/24 History aerosol inhaler Shortness Of Breath Or Wheezing cyanocobalamin (vitamin B-12) 1,000 mcg PO DAILY 03/21/24 03/21/24
[2024-03-22 08:00] VITALS: BP 135/102; PULSE 75; RESP 16; TEMP 36.2; O2SAT 96
[2024-03-22] MEDS: MULTIVITAMINS THERAPEUTIC TAB (*BKC) 1 TABLET PO (08:40)
[2024-03-22] MEDS: CHOLECALCIFEROL 1,000 UNITS TABLET 1000 UNITS PO (08:40)
[2024-03-22] MEDS: amLODIPine BESYLATE 5 MG TABLET 10 MG PO (08:40)
[2024-03-22] MEDS: CYANOCOBALAMIN 1,000 MCG TABLET 1000 MCG PO (08:40)
[2024-03-22] MEDS: PANTOPRAZOLE 40 MG TABLET PO (08:41)
[2024-03-22] MEDS: lisinopriL 20 MG TABLET PO (08:41)
[2024-03-22] MEDS: TORSEMIDE 20 MG TABLET PO (08:42)
[2024-03-22] MEDS: CALCIUM CARBONATE (OSCAL) 500 MG TABLET 1000 MG PO (08:42)
[2024-03-22] MEDS: ACETAMINOPHEN 500 MG TABLET 1000 MG PO ×2 (09:29→18:42)
--- NOTE | 2024-03-22 09:50 | PC.NURSE ---
# 16 Eckert catheter placed, patietn tolerated well, is patent and draining clear yellow urine.
[2024-03-22] MEDS: PIPERACILLIN/TAZ 2.25G/NS 50ML 2.25 GM/50 ML BAG IVPB ×2 (11:15→18:36)
[2024-03-22] MEDS: ONDANSETRON INJ 4 MG/2 ML VIAL IV PUSH (13:16)
[2024-03-22 15:24] VITALS: BP 151/48; PULSE 74; RESP 16; TEMP 36.2; O2SAT 96
[2024-03-22 16:37] LABS: Glucose Point of Care 187 mg/dl (65-105)
--- NOTE | 2024-03-22 17:08 | PC.NURSE ---
family requests her diet be changed to puree, daughter reports she will not eat her dinner she just spits it back out and is unsure if this is because she does not have her dentures and can't chew or because she has no appetite, charge nurse will notify color blender
[2024-03-22 21:09] LABS: Glucose Point of Care 188 mg/dl (65-105)
[2024-03-22 23:48] VITALS: BP 120/81; PULSE 78; RESP 16; TEMP 36.4; O2SAT 96
--- NOTE | 2024-03-23 02:15 | PC.NURSE ---
Pt has had x2 loose diarrhea stools, sample collected per order and taken to lab. Pt cleaned, assisted w/ SBA and walker to BR to attempt to have BM, pt unable to use toilet. Depend applied to pt for incontinence and assisted back to bed, Pts daughter in room and at bedside helping pt w/ care. Call mckay at side w/ bed alarms on.
[2024-03-23] MEDS: PIPERACILLIN/TAZ 2.25G/NS 50ML 2.25 GM/50 ML BAG IVPB ×3 (02:45→18:01)
[2024-03-23 02:53] LABS: Toxigenic C. Diff POSITIVE (NEGATIVE)
--- NOTE | 2024-03-23 03:00 | PC.NURSE ---
Positive for c diff per lab results, patient placed on contact isolation, family updated
--- NOTE | 2024-03-23 03:15 | PC.NURSE ---
Contact iso sign placed outside door, pts. daughter informed on good hand washing w/ soap and water and use of gloves when helping her mother.
--- NOTE | 2024-03-23 06:31 | PC.NURSE ---
Pt has more family visitors at this time, all informed on contact iso status.
[2024-03-23 07:38] LABS: Glucose Point of Care 179 mg/dl (65-105)
[2024-03-23 07:53] VITALS: BP 152/62; PULSE 80; RESP 16; TEMP 36.3; O2SAT 98
[2024-03-23 07:56] LABS: Hematocrit 33.1 % (35.0-42.0); Hemoglobin 10.2 g/dL (11.7-13.8); Mean Corpuscular HGB Conc 30.8 g/dL (32-36); Mean Corpuscular Hemoglobin 26.1 pg (27.0-31.0); Mean Corpuscular Volume 84.7 fL (78.0-102.0); Mean Platelet Volume 10.9 fl (9.2-11.8); Platelet Count Result 374 K/mm3 (150-420); Red Blood Count 3.91 M/mm3 (4.20-5.40); Red Cell Distribution Width 13.3 % (11.6-14.4); White Blood Count 11.2 K/mm3 (4.8-10.8)
[2024-03-23 08:07] LABS: Anion Gap 6 mmol/L (4-12); Blood Urea Nitrogen 33 mg/dL (7-18); Calcium 9.3 mg/dL (8.5-10.1); Carbon Dioxide 30 mmol/L (21-32); Chloride 101 mmol/L (98-108); Estimated Glomerular Filt Rate 30; Glucose 179 mg/dL (70-99); Osmolality Calculated 295 mOsm/kg (285-295); Potassium 3.8 mmol/L (3.5-5.1); Sodium 137 mmol/L (136-145)
--- NOTE | 2024-03-23 08:09 | WPDPN ---
Progress Note: A&P Assessment and Plan (1) Acute pyelonephritis: Code(s): N10 - Acute pyelonephritis Status: Acute Assessment and Plan: -evidence of UTI and imaging concerning for pyelonephritis with bilateral hydronephrosis. -distended bladder on CT scan. -postvoid residual over 770 mL -Eckert catheter placed to decompress the bladder and hydronephrosis -Rocephin given in the emergency department -will dose Zosyn based on prior urine culture sensitivities as well as presence of colitis on imaging (2) Acute kidney injury superimposed on CKD: Code(s): N17.9 - Acute kidney failure, unspecified; N18.9 - Chronic kidney disease, unspecified Status: Acute Assessment and Plan: -initial creatinine 2.11 BUN 62 estimated GFR 22 on admission CR has improved from previous 1.61 -with IV fluids overnight improvement to creatinine 1.77 BUN 48 estimated GFR 27 -bilateral hydronephrosis and distended bladder with 770 mL postvoid residual -Eckert catheter placed for decompression of bladder and hopefully improvement in DEION -IV fluids discontinued due to history of heart failure -after morning meds today, subsequently held lisinopril and torsemide until improvement in renal function (3) Diabetes mellitus: Qualifiers: Diabetes mellitus complication status: without complication Diabetes mellitus correction insulin use: without manager intermediate use Diabetes mellitus type: type 2 Qualified Code(s): E11.9 - Type 2 diabetes mellitus without complications Code(s): E11.9 - Type 2 diabetes mellitus without complications Status: Chronic Assessment and Plan: -reportedly diet controlled type 2 diabetes -glucose 220 admission 146 with a.m. labs -diet will change to carb consistent -ACHS fingerstick glucose with low-dose sliding scale if needed (4) Hydronephrosis: Code(s): N13.30 - Unspecified hydronephrosis Status: Acute Assessment and Plan: See DEION (5) Urinary retention: Code(s): R33.9 - Retention of urine, unspecified Status: Acute Assessment and Plan: See DEION (6) Hemorrhoids: Qualifiers: Hemorrhoid type: unspecified Qualified Code(s): K64.9 - Unspecified hemorrhoids Code(s): K64.9 - Unspecified hemorrhoids Status: Acute Assessment and Plan: -Bright red blood per rectum initial reason for ER visit -ER rectal exam showed internal hemorrhoids with occult positive but no jacinto bleeding -stable H&H -check daily labs (7) Colitis: Code(s): K52.9 - Noninfective gastroenteritis and colitis, unspecified Status: Acute Assessment and Plan: -abdominal pain and bright red blood per rectum with imaging findings of colitis -no diarrhea but would check C diff if developed diarrhea -treat with IV Zosyn -discussed transfer for colonoscopy but daughter did not want any invasive procedure all testing at this time Plan Eckert catheter to decompress bladder and hydronephrosis IV antibiotics for UTI/pyelonephritis/colitis I was later contacted by Case Management primary care and family were considering hospice care I would still recommend treatment for acute infection and later discharge back to facility with hospice care If family/PCP insistent on starting comfort measures in house I would be agreeable Family has decided that Hospice is the Best choice we will Treat the UTI and then she may be discharged after the 3rd dose of antibiotics hopefully culture will be back she is in need of 10 days of oral antibioitcs. Subjective Date/time seen: 03/23/24 08:09 Interval history: 03/23/23 Patient had positive C-Diff started Vancyomycin, and Flagyl for 10 days orally Isolation Reviewed patient labs WBC elevated 11.2, Cr 1.77 Family at bedside helping due to dementia No shortness of breath Vitals are stable Exam Narrative: GENERAL: Well-appearing, well-nourished, and in no acute distress. HEAD: Normocephalic, a
[2024-03-23] MEDS: CHOLECALCIFEROL 1,000 UNITS TABLET 1000 UNITS PO (08:37)
[2024-03-23] MEDS: metroNIDAZOLE 250 MG TABLET 500 MG PO ×3 (08:37→22:06)
[2024-03-23] MEDS: amLODIPine BESYLATE 5 MG TABLET 10 MG PO (08:38)
[2024-03-23] MEDS: MULTIVITAMINS THERAPEUTIC TAB (*BKC) 1 TABLET PO (08:38)
[2024-03-23] MEDS: PANTOPRAZOLE 40 MG TABLET PO (08:41)
[2024-03-23] MEDS: CYANOCOBALAMIN 1,000 MCG TABLET 1000 MCG PO (08:41)
[2024-03-23] MEDS: CALCIUM CARBONATE (OSCAL) 500 MG TABLET 1000 MG PO (08:41)
[2024-03-23] MEDS: ACETAMINOPHEN 500 MG TABLET 1000 MG PO ×3 (08:59→17:14)
[2024-03-23 11:20] LABS: Glucose Point of Care 202 mg/dl (65-105)
[2024-03-23] MEDS: INSULIN HUMAN LISPRO (*BKC) 1,000 UNITS/10 ML VIAL SUB-Q ×2 (11:59→17:14)
[2024-03-23] MEDS: VANCOMYCIN HCL 125 MG ORAL CAPSULE PO ×3 (12:00→22:06)
--- NOTE | 2024-03-23 15:43 | PC.NURSE ---
Patient has had numerous small loose stools. Patient being treated for C-diff infection.
[2024-03-23 16:00] VITALS: BP 128/46; PULSE 65; RESP 16; TEMP 36; O2SAT 98
[2024-03-23 17:04] LABS: Glucose Point of Care 221 mg/dl (65-105)
[2024-03-23] MEDS: SACCHAROMYCES BOULARDII 250 MG CAPSULE PO (17:14)
[2024-03-23 20:37] LABS: Glucose Point of Care 143 mg/dl (65-105)
[2024-03-23] MEDS: LORazepam (*CRX) 0.5 MG TABLET PO (22:06)
--- NOTE | 2024-03-23 22:06 | PC.NURSE ---
Per patient and family request oral dose of Vanco given early as to not wake patient.
[2024-03-24] VITALS: BP 134/62; PULSE 62; RESP 16; TEMP 36.4; O2SAT 97
[2024-03-24] MEDS: PIPERACILLIN/TAZ 2.25G/NS 50ML 2.25 GM/50 ML BAG IVPB ×3 (03:11→18:04)
[2024-03-24] MEDS: VANCOMYCIN HCL 125 MG ORAL CAPSULE PO ×3 (06:19→17:32)
[2024-03-24] MEDS: metroNIDAZOLE 250 MG TABLET 500 MG PO ×3 (06:19→21:27)
[2024-03-24 07:38] LABS: Glucose Point of Care 185 mg/dl (65-105)
[2024-03-24 08:00] VITALS: BP 156/70; PULSE 69; RESP 16; TEMP 36.4; O2SAT 98
[2024-03-24] MEDS: CALCIUM CARBONATE (OSCAL) 500 MG TABLET 1000 MG PO (08:09)
[2024-03-24] MEDS: CHOLECALCIFEROL 1,000 UNITS TABLET 1000 UNITS PO (08:10)
[2024-03-24] MEDS: MULTIVITAMINS THERAPEUTIC TAB (*BKC) 1 TABLET PO (08:10)
[2024-03-24] MEDS: SACCHAROMYCES BOULARDII 250 MG CAPSULE PO ×2 (08:11→17:32)
[2024-03-24] MEDS: ACETAMINOPHEN 500 MG TABLET 1000 MG PO ×2 (08:11→17:30)
[2024-03-24] MEDS: CYANOCOBALAMIN 1,000 MCG TABLET 1000 MCG PO (08:12)
[2024-03-24] MEDS: amLODIPine BESYLATE 5 MG TABLET 10 MG PO (08:12)
[2024-03-24] MEDS: PANTOPRAZOLE 40 MG TABLET PO (08:17)
--- NOTE | 2024-03-24 10:58 | PM.IMPN ---
Progress Note: A&P Assessment and Plan (1) Acute pyelonephritis: Code(s): N10 - Acute pyelonephritis Status: Acute Assessment and Plan: -evidence of UTI and imaging concerning for pyelonephritis with bilateral hydronephrosis. -distended bladder on CT scan. -postvoid residual over 770 mL -Eckert catheter placed to decompress the bladder and hydronephrosis -Rocephin given in the emergency department -will dose Zosyn based on prior urine culture sensitivities as well as presence of colitis on imaging 03/24: still awaiting urine sensitivities (2) Acute kidney injury superimposed on CKD: Code(s): N17.9 - Acute kidney failure, unspecified; N18.9 - Chronic kidney disease, unspecified Status: Acute Assessment and Plan: -initial creatinine 2.11 BUN 62 estimated GFR 22 on admission CR has improved from previous 1.61 -with IV fluids overnight improvement to creatinine 1.77 BUN 48 estimated GFR 27 -bilateral hydronephrosis and distended bladder with 770 mL postvoid residual -Eckert catheter placed for decompression of bladder and hopefully improvement in DEION -IV fluids discontinued due to history of heart failure -after morning meds today, subsequently held lisinopril and torsemide until improvement in renal function 03/24: Cr 1.5, eGFR 32, antibiotics likely to require renal adjustment (3) Diabetes mellitus: Qualifiers: Diabetes mellitus complication status: without complication Diabetes mellitus long chain quiller tender insulin use: without long chain quiller tender use Diabetes mellitus type: type 2 Qualified Code(s): E11.9 - Type 2 diabetes mellitus without complications Code(s): E11.9 - Type 2 diabetes mellitus without complications Status: Chronic Assessment and Plan: -reportedly diet controlled type 2 diabetes -glucose 220 admission 146 with a.m. labs -diet will change to carb consistent -ACHS fingerstick glucose with low-dose sliding scale if needed 03/24: stop fingerstick/SSI per family preference and upcoming hospice referral (4) Hydronephrosis: Code(s): N13.30 - Unspecified hydronephrosis Status: Acute Assessment and Plan: See DEION (5) Urinary retention: Code(s): R33.9 - Retention of urine, unspecified Status: Acute Assessment and Plan: See DEION (6) Hemorrhoids: Qualifiers: Hemorrhoid type: unspecified Qualified Code(s): K64.9 - Unspecified hemorrhoids Code(s): K64.9 - Unspecified hemorrhoids Status: Acute Assessment and Plan: -Bright red blood per rectum initial reason for ER visit -ER rectal exam showed internal hemorrhoids with occult positive but no jacinto bleeding -stable H&H -check daily labs 03/24: no jacinto bleeding, stable H&H, C. diff positive (7) Colitis: Code(s): K52.9 - Noninfective gastroenteritis and colitis, unspecified Status: Acute Assessment and Plan: -abdominal pain and bright red blood per rectum with imaging findings of colitis -no diarrhea but would check C diff if developed diarrhea -treat with IV Zosyn -discussed transfer for colonoscopy but daughter did not want any invasive procedure all testing at this time 03/24: Patient on oral vancomycin and metronidazole for C. diff. Plan Will discontinue Eckert before return to [facility] Non-essential medications discontinued Treat infections Hospice consult through case management at [facility] after Time Spent With Patient Time with patient: Greater than 35 minutes Subjective Date/time seen: 03/24/24 10:58 Interval history: Patient more awake, appears less ill. Discussed with family that we will discharge back after urine culture/sensitivity results available. Patient had some trouble taking her oral meds this morning and they had to be crushed. We will discontinue non-essential medications since they will be consulting hospice after the due to metastatic disease without desire for i
[2024-03-24 11:49] LABS: Glucose Point of Care 234 mg/dl (65-105)
[2024-03-24 12:21] LABS: Albumin Level 2.5 g/dL (3.4-5.0); Anion Gap 8 mmol/L (4-12); Blood Urea Nitrogen 28 mg/dL (7-18); Calcium 8.9 mg/dL (8.5-10.1); Carbon Dioxide 28 mmol/L (21-32); Chloride 97 mmol/L (98-108); Estimated Glomerular Filt Rate 32; Glucose 205 mg/dL (70-99); Osmolality Calculated 287 mOsm/kg (285-295); Phosphorus 2.7 mg/dL (2.6-4.7); Sodium 133 mmol/L (136-145)
[2024-03-24 12:23] LABS: Basophils Absolute Auto 0.05 K/mm3 (0.00-0.10); Basophils Percent Auto 0.5 % (0.0-1.0); Eosinophils Absolute Auto 0.37 K/mm3 (0.02-0.50); Eosinophils Percent Auto 3.7 % (1.0-6.0); Hematocrit 34.3 % (35.0-42.0); Hemoglobin 10.2 g/dL (11.7-13.8); Immature Granulocyte Absolute 0.05 K/mm3 (0.00-0.00); Immature Granulocyte Percent A 0.5 % (0.0-0.0); Lymphocytes Absolute Auto 1.09 K/mm3 (1.10-4.50); Mean Corpuscular HGB Conc 29.7 g/dL (32-36); Mean Corpuscular Hemoglobin 25.5 pg (27.0-31.0); Mean Corpuscular Volume 85.8 fL (78.0-102.0); Monocytes Absolute Auto 0.67 K/mm3 (0.10-0.90); Monocytes Percent Auto 6.7 % (2.0-11.0); Neutrophils Absolute Auto 7.72 K/mm3 (1.70-7.20); Neutrophils Percent Auto 77.6 % (50.0-70.0); Platelet Count Result 469 K/mm3 (150-420); Red Cell Distribution Width 13.3 % (11.6-14.4)
[2024-03-24 16:00] VITALS: BP 143/53; PULSE 76; RESP 16; TEMP 35.8; O2SAT 99
[2024-03-24 16:49] LABS: Glucose Point of Care 205 mg/dl (65-105)
--- NOTE | 2024-03-24 18:43 | PC.NURSE ---
IV site infiltrated and was discontinued by check writer salesperson. Patient switched to PO ABT.
[2024-03-24] MEDS: levoFLOXacin TAB 500 MG, levoFLOXacin TAB 250 MG 750 MG PO (19:33)
[2024-03-24 20:14] LABS: Glucose Point of Care 185 mg/dl (65-105)
[2024-03-24] MEDS: LORazepam (*CRX) 0.5 MG TABLET PO (20:51)
[2024-03-25] VITALS: BP 139/55; PULSE 76; RESP 16; TEMP 36.5; O2SAT 97
[2024-03-25] MEDS: VANCOMYCIN HCL 125 MG ORAL CAPSULE PO ×2 (00:16→05:11)
[2024-03-25] MEDS: metroNIDAZOLE 250 MG TABLET 500 MG PO (05:10)
[2024-03-25 05:39] LABS: Basophils Absolute Auto 0.03 K/mm3 (0.00-0.10); Basophils Percent Auto 0.4 % (0.0-1.0); Eosinophils Absolute Auto 0.42 K/mm3 (0.02-0.50); Eosinophils Percent Auto 5.1 % (1.0-6.0); Hematocrit 30.2 % (35.0-42.0); Immature Granulocyte Absolute 0.06 K/mm3 (0.00-0.00); Immature Granulocyte Percent A 0.7 % (0.0-0.0); Lymphocytes Absolute Auto 1.26 K/mm3 (1.10-4.50); Lymphocytes Percent Auto 15.4 % (18.0-42.0); Mean Corpuscular HGB Conc 29.8 g/dL (32-36); Mean Corpuscular Hemoglobin 25.1 pg (27.0-31.0); Mean Corpuscular Volume 84.4 fL (78.0-102.0); Mean Platelet Volume 10.9 fl (9.2-11.8); Monocytes Percent Auto 8.6 % (2.0-11.0); Neutrophils Percent Auto 69.8 % (50.0-70.0); Platelet Count Result 370 K/mm3 (150-420); Red Blood Count 3.58 M/mm3 (4.20-5.40); Red Cell Distribution Width 13.2 % (11.6-14.4); White Blood Count 8.2 K/mm3 (4.8-10.8)
[2024-03-25 05:52] LABS: Albumin Level 2.2 g/dL (3.4-5.0); Anion Gap 6 mmol/L (4-12); Blood Urea Nitrogen 27 mg/dL (7-18); Carbon Dioxide 28 mmol/L (21-32); Chloride 100 mmol/L (98-108); Estimated Glomerular Filt Rate 36; Glucose 128 mg/dL (70-99); Magnesium 1.8 mg/dL (1.8-2.4); Osmolality Calculated 285 mOsm/kg (285-295); Phosphorus 2.9 mg/dL (2.6-4.7); Potassium 4.4 mmol/L (3.5-5.1); Sodium 134 mmol/L (136-145)
--- NOTE | 2024-03-25 07:27 | PM.DS ---
DS: Admitting Diagnosis Discharge Date 03/25 Admitting Diagnosis abdominal pain DS: Discharge Diagnosis Discharge Diagnosis (1) Acute pyelonephritis: Code(s): N10 - Acute pyelonephritis Status: Acute Assessment and Plan: -evidence of UTI and imaging concerning for pyelonephritis with bilateral hydronephrosis. -distended bladder on CT scan. -postvoid residual over 770 mL -Eckert catheter placed to decompress the bladder and hydronephrosis -Rocephin given in the emergency department -will dose Zosyn based on prior urine culture sensitivities as well as presence of colitis on imaging 03/24: still awaiting urine sensitivities 03/25: enterobacter/asburia growing and is sensitive to fluoroquinolones. Started on Levaquin 500 mg every 48 hours for creatinine clearance. EOT date 03/30/24. (2) Acute kidney injury superimposed on CKD: Code(s): N17.9 - Acute kidney failure, unspecified; N18.9 - Chronic kidney disease, unspecified Status: Acute Assessment and Plan: -initial creatinine 2.11 BUN 62 estimated GFR 22 on admission CR has improved from previous 1.61 -with IV fluids overnight improvement to creatinine 1.77 BUN 48 estimated GFR 27 -bilateral hydronephrosis and distended bladder with 770 mL postvoid residual -Eckert catheter placed for decompression of bladder and hopefully improvement in DEION -IV fluids discontinued due to history of heart failure -after morning meds today, subsequently held lisinopril and torsemide until improvement in renal function 03/24: Cr 1.5, eGFR 32, antibiotics likely to require renal adjustment (3) Diabetes mellitus: Qualifiers: Diabetes mellitus complication status: without complication Diabetes mellitus group home insulin use: without group home use Diabetes mellitus type: type 2 Qualified Code(s): E11.9 - Type 2 diabetes mellitus without complications Code(s): E11.9 - Type 2 diabetes mellitus without complications Status: Chronic Assessment and Plan: -reportedly diet controlled type 2 diabetes -glucose 220 admission 146 with a.m. labs -diet will change to carb consistent -ACHS fingerstick glucose with low-dose sliding scale if needed 03/24: stop fingerstick/SSI per family preference and upcoming hospice referral (4) Hydronephrosis: Code(s): N13.30 - Unspecified hydronephrosis Status: Acute Assessment and Plan: See DEION (5) Urinary retention: Code(s): R33.9 - Retention of urine, unspecified Status: Acute Assessment and Plan: See DEION (6) Hemorrhoids: Qualifiers: Hemorrhoid type: unspecified Qualified Code(s): K64.9 - Unspecified hemorrhoids Code(s): K64.9 - Unspecified hemorrhoids Status: Acute Assessment and Plan: -Bright red blood per rectum initial reason for ER visit -ER rectal exam showed internal hemorrhoids with occult positive but no jacinto bleeding -stable H&H -check daily labs 03/24: no jacinto bleeding, stable H&H, C. diff positive (7) Colitis: Code(s): K52.9 - Noninfective gastroenteritis and colitis, unspecified Status: Acute Assessment and Plan: -abdominal pain and bright red blood per rectum with imaging findings of colitis -no diarrhea but would check C diff if developed diarrhea -treat with IV Zosyn -discussed transfer for colonoscopy but daughter did not want any invasive procedure all testing at this time 03/24: Patient on oral vancomycin and metronidazole for C. diff. Plan Will discontinue Eckert before return to [facility] Non-essential medications discontinued Treat infections Hospice consult through case management at [facility] after holiday weekend DS: Summary Hospital Course Reason for hospitalization: pyelonephritis, c-diff colitis, uti Hospital Course: This is an 88-year-old female patient resident of nursing facility presented to the ER with abdominal pain and bright red blood per rectum.? ER workup conc
[2024-03-25 08:00] VITALS: BP 142/58; PULSE 78; RESP 14; TEMP 36.6; O2SAT 94
[2024-03-25] MEDS: amLODIPine BESYLATE 5 MG TABLET 10 MG PO (08:43)
[2024-03-25] MEDS: ACETAMINOPHEN 500 MG TABLET 1000 MG PO (08:56)
--- NOTE | 2024-03-25 11:05 | PC.NURSE ---
Pt discharged back to nursing home facility in [facility]. Dishcharge instructions given to pt and family. Printed discharge instructions are to be given to the senior care. Pt is alert to self and family. VSS. Ekcert cath removed by RN. Pt urinated at 1020. RN took pt to the family car via transport chair and helped her into car.
--- NOTE | 2024-04-02 09:09 | PC.NURSE ---
Discharge call back, return to correction, no questions regarding dc orders
== END 2024-03-25 10:30 | DRG 372 ==
LOC: CHSED 20:18 → CHS2ND 20:40
PROVIDERS: Nurse Practitioner; Nurse Practitioner Family; Admitting Provider Internal Medicine; Emergency Provider Emergency Medicine; PCP Family Medicine; Visit Provider Internal Medicine
DX: A04.72 Enterocolitis due to Clostridium difficile, not specified as recurrent (principal); I13.0 Hypertensive heart and chronic kidney disease with heart failure and stage 1 through stage 4 chronic kidney disease, or unspecified chronic kidney disease; N13.6 Pyonephrosis; N17.9 Acute kidney failure, unspecified; I50.9 Heart failure, unspecified; N18.9 Chronic kidney disease, unspecified; J44.9 Chronic obstructive pulmonary disease, unspecified; E11.319 Type 2 diabetes mellitus with unspecified diabetic retinopathy without macular edema; D50.9 Iron deficiency anemia, unspecified; E53.8 Deficiency of other specified B group vitamins; M81.0 Age-related osteoporosis without current pathological fracture; R33.9 Retention of urine, unspecified; Z87.891 Personal history of nicotine dependence
CPT/HCPCS: 36415; 74176; 80048; 80053; 80069; 81001; 82140; 82272; 82948; 83605; 83690; 83735; 85025; 85027; 85610; 85730; 87040; 87077; 87086; 87088; 87186; 87493; 96361; 96365; 96375; 99285; A9270; C9113; G0378; J0696; J1815; J2405; J2543; J7030